=== PATIENT | female | born 1960 | race Caucasian/White ===

== ENCOUNTER → 2020-02-25 15:41 | Outpatient (BNVA) | payer OTHER, SELFPAY | PROVIDERS: PCP Internal Medicine; Visit Provider Surgery Vascular Surgery | DX: Z76.89 Persons encountering health services in other specified circumstances (principal) ==

== ENCOUNTER 2020-03-21 06:04 | Day surgery (SDC) | payer OTHER, SELFPAY ==
[2020-03-14 21:00] VITALS: BMI 27.3
--- NOTE | 2020-03-18 11:31 | P.CONAN_ITS ---
Documented by User: Yolanda Beltran 03/18/20 11:33 HPI - Anesthesia Eval Consult details Narrative: 60yo F for Phlebectomy, micro PMFSH Past Medical History Medical History Arthritis Bladder cancer Depression Hypercholesteremia Second hand smoke exposure Urinary bladder incontinence Family History Family History Father Pancreatic cancer HTN (hypertension) Mother HTN (hypertension) Liver cancer Family/Other No problems noted. Brother HTN (hypertension) Sister HTN (hypertension) Son No problems noted. Daughter No problems noted. Surgical History Surgical History H/O local excision of skin lesion History of transurethral resection of ureterocele Social History Social History Smoking Status: Former smoker Use of substances other than those prescribed or required for medical reasons: No Advance Directives: Yes Advance Directives Information Provided: Yes Advance Directives on File: No Advance Directives Date on File: 07/09/19 Meds Allergies Allergy/AdvReac Type Severity Reaction Status Date / Time No Known Allergies Allergy Verified 03/14/20 21:05 [No Known Allergies*] Home Medications Medication Instructions Recorded Confirmed Type atorvastatin 20 mg tablet 20 mg PO DAILY 02/25/20 03/21/20 History citalopram 40 mg tablet 40 mg PO DAILY 02/25/20 03/21/20 History Fish Oil 1 caplet PO DAILY 03/14/20 03/14/20 History multivitamin 1 tab PO DAILY 03/14/20 03/14/20 History Exam Exam Date and Time: March 18, 2020 1131 Height,Weight and Vital Signs: Height 5 ft 8 in Weight 81.647 kg Pertinent Lab Results Pertinent Lab Results: Laboratory Tests 12/07/19 12/07/19 11:48 11:48 WBC 6.1 Hgb 14.4 Hct 42.7 Plt Count 270 Sodium 139 Potassium 4.3 Chloride 105 BUN 12 Creatinine 0.87 Assessment and Plan Assessment Anesthesia Assessment: Chart Reviewed Documented by User: Ceferino Michaels 03/21/20 07:37 [facility] Past Medical History Medical History Arthritis Bladder cancer Depression Hypercholesteremia Second hand smoke exposure Urinary bladder incontinence Family History Family History Father Pancreatic cancer HTN (hypertension) Mother HTN (hypertension) Liver cancer Family/Other No problems noted. Brother HTN (hypertension) Sister HTN (hypertension) Son No problems noted. Daughter No problems noted. Surgical History Surgical History H/O local excision of skin lesion History of transurethral resection of ureterocele Social History Social History Smoking Status: Former smoker Use of substances other than those prescribed or required for medical reasons: No Advance Directives: Yes Advance Directives Information Provided: Yes Advance Directives on File: No Advance Directives Date on File: 07/09/19 Meds Allergies Allergy/AdvReac Type Severity Reaction Status Date / Time No Known Allergies Allergy Verified 03/14/20 21:05 [No Known Allergies*] Home Medications Medication Instructions Recorded Confirmed Type atorvastatin 20 mg tablet 20 mg PO DAILY 02/25/20 03/21/20 History citalopram 40 mg tablet 40 mg PO DAILY 02/25/20 03/21/20 History Fish Oil 1 caplet PO DAILY 03/14/20 03/14/20 History multivitamin 1 tab PO DAILY 03/14/20 03/14/20 History Exam Airway Mallampati Class: II TM Dist: >3cm Neck ROM: Full Loose/Missing/Broken Teeth: Yes, Upper and Lower (Multiple missing, poor denttiin) Heart: [id number] Lungs: cta b/l Assessment and Plan Assessment Anesthesia Assessment: Anesthesia Plan Discussed, PAT Visit and Chart Reviewed Final Anesthetic Review NPO: Yes ASA Class: III Final Preanesthetic Review: No Changes in Pt Med Stat, Meds/Allgs Chart Reviewed, Consent Obtained/Reviewed and Anes Risks/Benef Reviewed Patient Risk: Low Procedure Risk: Low Assessment/Block/Sedation in SS: Assess/Block/Sedation-SS Anesthetic Plan Anesthetic Plan: GA Disposition: Standard PACU
[2020-03-21 06:17] VITALS: BP 146/85; PULSE 71; RESP 18; TEMP 36.9; O2SAT 95
[2020-03-21] MEDS: Lactated Ringers 1,000 ML 100 ML IVCONT (06:34)
[2020-03-21] MEDS: ceFAZolin Sodium/Dextrose,Iso 2 GM/50 ML PIGGYBACK IV (06:35)
--- NOTE | 2020-03-21 07:42 | MHC.SHP ---
Pre-Procedural Eval Section B Chief Complaint: Varicose veins Allergies: Allergies Allergy/AdvReac Type Severity Reaction Status Date / Time No Known Allergies Allergy Verified 03/14/20 21:05 [No Known Allergies*] Plan Patient has been examined and remains a candidate for the planned procedure
[2020-03-21 08:57] VITALS: BP 178/97; PULSE 87; RESP 14; TEMP 36.2; O2SAT 96
[2020-03-21 09:02] VITALS: BP 159/101; PULSE 77; RESP 16; O2SAT 100
[2020-03-21 09:07] VITALS: BP 162/99; PULSE 69; RESP 18; O2SAT 97
[2020-03-21 09:12] VITALS: BP 152/98; PULSE 71; RESP 18; O2SAT 97
[2020-03-21] MEDS: oxyCODONE HCl Immed Release 5 MG TABLET PO (09:21)
[2020-03-21 09:27] VITALS: BP 146/98; PULSE 70; RESP 18; O2SAT 97
--- NOTE | 2020-03-21 09:36 | HO.POSTANES ---
Post Anesthesia Evaluation Post Anesthesia Evaluation Vital Signs: Vital Signs Temp Pulse Resp BP Pulse Ox 03/21/20 09:27 70 18 146/98 H 97 03/21/20 09:12 71 18 152/98 H 97 03/21/20 09:07 69 18 162/99 H 97 03/21/20 09:02 77 16 159/101 H 100 03/21/20 08:57 97.2 F 87 14 178/97 H 96 03/21/20 06:17 98.4 F 71 18 146/85 H 95 Anesthesia: General Mental Status: Awake Pain Control: Satisfactory Nausea/Vomiting: None Hydration: Adequate Anesthesia-Related Issues: No Anes. Related Issues
--- NOTE | 2020-03-21 11:53 | OP_ITS ---
SURGEON: Jose Guadalupe Nazario MD INDICATIONS: Sweetie is a 60-year-old female with significant right lower extremity varicose veins that have been quite painful for her. She has undergone great saphenous vein ablation. She now presents for operative intervention for phlebectomy of superficial varicosities. Risks, benefits, and complications were discussed in detail with the patient. The patient understood and consented. PREOPERATIVE DIAGNOSIS: Right lower extremity varicose veins with inflammation. POSTOPERATIVE DIAGNOSIS: Right lower extremity varicose veins with inflammation. PROCEDURE PERFORMED: ESTIMATED BLOOD LOSS: 20 mL. COMPLICATIONS: ANESTHESIA: General. ASSISTANTS: WILLIAN: Julissa. PROCEDURES PERFORMED: 1. Right lower extremity microphlebectomy (21). 2. Ligation of venous cluster. DESCRIPTION OF PROCEDURE: The patient was brought to the operating room, prior to which a time-out was called for patient identification and site verification. Right leg was prepped and draped in standard surgical fashion. Incision was carried out over the premarked varicosities when the patient was upright. This was done in 23 separate locations through these incisions using fine mosquitoes. The varicosities were removed. There was multiple superficial thrombosed varicosities clot was removed as well. Once again, these were done in 23 separate locations. There was a large venous cluster in the medial aspect of the right thigh. The base of which was identified, which appeared to be coming off the great saphenous vein. This was identified at the base, tied off with a 3-0 Polysorb suture and then the residual varicosities were removed once this was ligated. Adequate hemostasis was achieved. Steri-Strips and a sterile dressing were applied. The leg was wrapped from foot to thigh. At the end of the case, sponge and instrument counts were correct. The patient tolerated the procedure well, returned to Recovery with stable vitals. DRAINS: None. MD KYE Thrasher/KEHINDE / [id number]
== END 2020-03-21 10:30 | disposition home or self-care (01) ==
PROVIDERS: Visit Provider Surgery Vascular Surgery
PROC: (CPT 37766; principal; 2020-03-21 07:30)
DX: I83.11 Varicose veins of right lower extremity with inflammation (principal); F32.9 Major depressive disorder, single episode, unspecified; E78.00 Pure hypercholesterolemia, unspecified; R32 Unspecified urinary incontinence; Z85.51 Personal history of malignant neoplasm of bladder; Z79.899 Other long term (current) drug therapy; Z87.891 Personal history of nicotine dependence
CPT/HCPCS: 37766; 37785; 88304; J0690; J1100; J2250; J2405; J3010

== ENCOUNTER 2020-06-03 07:27 | Outpatient (REF) | payer OTHER, SELFPAY ==
--- NOTE | 2020-06-03 07:30 | MM_ITS ---
EXAMINATION: MM SCREENING DIGITAL BREAST TOMOSYNTHESIS, BILATERAL CLINICAL INFORMATION: Screening. Asymptomatic. The lifetime risk of breast cancer based on the Tyrer-Cuzick Model is 5%. COMPARISON: Mammography: 05/27/2019, 05/15/2018 TECHNIQUE: Digital breast tomosynthesis is performed in both the craniocaudal and mediolateral oblique views along with computer-aided detection (CAD). Synthesized 2D images are generated from the tomosynthesis. Additional right MLO view is provided. FINDINGS: There are scattered areas of fibroglandular density (ACR BI-RADS breast composition Category b). There are no significant masses, abnormal calcifications, or other abnormalities. There is a dermal lesion overlying the upper outer right breast on MLO view again noted. The axilla and skin contours are unremarkable. MM/MM tomosynthesis screening BI IMPRESSION: No mammographic evidence of malignancy. ASSESSMENT: BI-RADS 2: Benign RECOMMENDATION: Routine annual mammography screening. This patient's information was entered into a reminder system with a target due date for their next mammogram.
== END 2020-06-03 07:28 | disposition home or self-care (01) ==
LOC: HO.MAMMO 07:27
PROVIDERS: PCP Internal Medicine; Visit Provider Internal Medicine
DX: Z12.31 Encounter for screening mammogram for malignant neoplasm of breast (principal)
CPT/HCPCS: 77063; 77067

== ENCOUNTER → 2020-06-07 15:13 | Outpatient (BNVA) | payer OTHER, SELFPAY | PROVIDERS: PCP Internal Medicine; Visit Provider Urology | DX: N39.41 Urge incontinence (principal); C67.9 Malignant neoplasm of bladder, unspecified | CPT/HCPCS: 52000; 81002 ==

== ENCOUNTER 2020-06-11 10:13 | Outpatient (REF) | payer OTHER, SELFPAY ==
[2020-06-11 11:09] LABS: Hematocrit 44.9 % (37-47); Mean Corpuscular HGB Conc 33.4 g/dl (31.0-35.0); Mean Corpuscular Hemoglobin 31.3 pg (27.0-33.0); Mean Corpuscular Volume 93.5 fL (80-98); Mean Platelet Volume 10.6 fL (9.4-12.3); Platelet Count 283 X10*3/uL (160-400); Red Cell Distribution Width 11.9 % (11.0-16.0); White Blood Count 5.2 X10*3/uL (4.8-10.8)
[2020-06-11 11:38] LABS: Alanine Aminotransferase 19 U/L (0-31); Anion Gap 12 (12-20); Aspartate Amino Transferase 19 U/L (5-31); Blood Urea Nitrogen 11 mg/dL (9-16); Calcium 9.2 mg/dL (8.4-10.2); Carbon Dioxide 28 mmol/L (22-29); Chloride 106 mmol/L (96-108); Cholesterol 158 mg/dL; Estimated Glomerular Filt Rate > 60; Glucose Fasting 94 mg/dL (60-99); HDL Cholesterol 47 mg/dL; LDL Cholesterol Calculated 90 mg/dl; Potassium 4.4 mmol/l (3.3-5.1); Sodium 142 mmol/L (135-145); Triglycerides 105 mg/dL
[2020-06-11 12:01] LABS: Vitamin D 25-OH Total 33.4 ng/mL (>30)
== END 2020-06-11 10:14 | disposition home or self-care (01) ==
LOC: HO.LAB 10:13
PROVIDERS: PCP Internal Medicine; Visit Provider Internal Medicine
DX: E78.2 Mixed hyperlipidemia (principal); R73.01 Impaired fasting glucose; Z78.0 Asymptomatic menopausal state
CPT/HCPCS: 36415; 80048; 80061; 82306; 84450; 84460; 85027

== ENCOUNTER 2020-06-20 07:26 | Outpatient (REF) | payer OTHER, SELFPAY ==
--- NOTE | 2020-06-20 07:28 | MR_ITS ---
EXAMINATION: MR LUMBAR SPINE WITHOUT CONTRAST CLINICAL INFORMATION: Radiculopathy, lumbar region. COMPARISON: None TECHNIQUE: MRI of the lumbar spine was obtained using routine sequences without contrast. FINDINGS: The lumbar vertebral bodies maintain normal heights. There is grade 1 anterolisthesis of L4 on L5 measuring up to 5 mm. There is mild retrolisthesis of L2 on L3 and mild anterolisthesis of L5 on S1. Mild disc height loss is seen at L1-L2. Significant marrow edema is seen within the left L4 and bilateral L5 pedicles compatible with stress response. Significant periarticular edema is seen about the L4-L5 and L5-S1 facets. Synovial facet cysts are seen arising from the left L4-L5 facet joint which approximates but does not definitively contact the exiting left L4 nerve root with additional posteriorly directed synovial facet cysts seen bilaterally at L5-S1. The distal spinal cord appears normal. The conus medullaris terminates normally at the T12 level. Bilateral T2 hyperintense renal cysts are noted. The extraspinal soft tissues are otherwise within normal limits. SPINAL LEVELS: T12-L1: No posterior disc abnormality. No spinal canal or neural foraminal stenosis. L1-L2: Disc bulging. No spinal canal or neural foraminal stenosis. L2-L3: Disc bulging asymmetric to the left with left-sided foraminal protrusion resulting in posterior displacement of the traversing left L3 nerve root and narrowing of the left neural foramina without foraminal nerve root compression. Mild spinal canal stenosis. L3-L4: Disc bulging with mild to moderate facet arthropathy. Mild flattening of the ventral thecal sac. Shallow left foraminal protrusion abuts the exiting left L3 nerve root. L4-L5: Grade 1 anterolisthesis with disc bulging and posterior uncovering of the disc. In combination with ligamentum flavum infolding and severe facet arthropathy there is severe spinal canal stenosis with thecal sac compression and near complete effacement of the spinal canal. Moderate right and mild to moderate left neural foraminal stenosis with mass effect on the exiting right L4 nerve root. L5-S1: Mild anterolisthesis. Moderate facet arthropathy. No spinal canal stenosis. Left subarticular extrusion results in compression of the traversing left S1 nerve root. Mild to moderate left neural foraminal stenosis. MR/MR lumbar spine wo con IMPRESSION: Multifactorial degenerative changes including grade 1 anterolisthesis seen at L4-L5 resulting in severe spinal canal stenosis with thecal sac compression and near complete effacement of the spinal canal. Mass effect on the exiting right L4 nerve root. Marrow edema compatible with stress response is seen within the left L4 and bilateral L5 pedicles in addition to periarticular edema. At L5-S1 there is left subarticular extrusion causing compression of the traversing left S1 nerve root. Mild to moderate left neural foraminal stenosis. At L3-L4 there is shallow left foraminal protrusion which abuts the exiting left L3 nerve root.
== END 2020-06-20 07:27 | disposition home or self-care (01) ==
LOC: HO.MRI 07:26
PROVIDERS: Visit Provider Internal Medicine
DX: M54.16 Radiculopathy, lumbar region (principal); Z85.51 Personal history of malignant neoplasm of bladder
CPT/HCPCS: 72148

== ENCOUNTER → 2020-07-22 14:59 | Outpatient (BNVA) | payer OTHER, SELFPAY | PROVIDERS: PCP Internal Medicine; Visit Provider Urology | DX: Z13.9 Encounter for screening, unspecified (principal); N39.41 Urge incontinence | CPT/HCPCS: 52287; 81002; J0585 ==

== ENCOUNTER → 2020-10-28 15:16 | Outpatient (BNVA) | payer OTHER, SELFPAY | PROVIDERS: Visit Provider Urology | DX: C67.9 Malignant neoplasm of bladder, unspecified (principal); N90.4 Leukoplakia of vulva | CPT/HCPCS: 52000 ==

== ENCOUNTER 2021-01-27 15:05 | Outpatient (REF) | payer OTHER, SELFPAY ==
[2021-01-27 16:24] LABS: Urine Cytology See Pathology rpt
== END 2021-01-27 15:06 | disposition home or self-care (01) ==
LOC: HO.LAB 15:05
PROVIDERS: PCP Internal Medicine; Visit Provider Urology
DX: C67.9 Malignant neoplasm of bladder, unspecified (principal)
CPT/HCPCS: 52000; 88112

== ENCOUNTER 2021-05-30 07:13 | Outpatient (REF) | payer OTHER, SELFPAY ==
[2021-05-30 08:18] LABS: Alanine Aminotransferase 21 U/L (0-31); Anion Gap 11 (12-20); Aspartate Amino Transferase 17 U/L (5-31); Blood Urea Nitrogen 14 mg/dL (9-16); Calcium 9.5 mg/dL (8.4-10.2); Carbon Dioxide 24 mmol/L (22-29); Chloride 109 mmol/L (96-108); Cholesterol 215 mg/dL; Estimated Glomerular Filt Rate > 60; Glucose Fasting 129 mg/dL (60-99); HDL Cholesterol 46 mg/dL; LDL Cholesterol Calculated 134 mg/dl; Potassium 4.1 mmol/L (3.3-5.1); Sodium 140 mmol/L (135-145); Triglycerides 177 mg/dL
== END 2021-05-30 07:14 | disposition home or self-care (01) ==
LOC: HO.LAB 07:13
PROVIDERS: PCP Internal Medicine; Visit Provider Internal Medicine
DX: E78.00 Pure hypercholesterolemia, unspecified (principal); I10 Essential (primary) hypertension
CPT/HCPCS: 36415; 80048; 80061; 84450; 84460

== ENCOUNTER 2021-07-06 07:16 | Outpatient (REF) | payer OTHER, SELFPAY ==
--- NOTE | ~2021-07-06 | MM_ITS ---
EXAMINATION: MM SCREENING DIGITAL BREAST TOMOSYNTHESIS, BILATERAL CLINICAL INFORMATION: Screening. Asymptomatic. The lifetime risk of breast cancer based on the Tyrer-Cuzick Model is 5%. COMPARISON: Mammography: 06/03/2020, 05/27/2019, 05/15/2018 TECHNIQUE: Digital breast tomosynthesis is performed in both the craniocaudal and mediolateral oblique views along with computer-aided detection (CAD). Synthesized 2D images are generated from the tomosynthesis. FINDINGS: There are scattered areas of fibroglandular density (ACR BI-RADS breast composition Category b). There are no significant masses, abnormal calcifications, or other abnormalities. Parenchymal pattern is similar to prior studies. There is no developing density or architectural abnormality. Again, there are dermal lesions overlying the breasts. The axilla are unremarkable. No significant changes. MM/MM tomosynthesis screening BI IMPRESSION: No mammographic evidence of malignancy. ASSESSMENT: BI-RADS 2: Benign RECOMMENDATION: Routine annual mammography screening. This patient's information was entered into a reminder system with a target due date for their next mammogram.
== END 2021-07-06 07:17 | disposition home or self-care (01) ==
LOC: HO.MAMMO 07:16
PROVIDERS: PCP Internal Medicine; Visit Provider Internal Medicine
DX: Z12.31 Encounter for screening mammogram for malignant neoplasm of breast (principal)
CPT/HCPCS: 77063; 77067

== ENCOUNTER → 2021-07-26 15:04 | Outpatient (BNVA) | payer OTHER, SELFPAY | PROVIDERS: PCP Internal Medicine; Visit Provider Urology | DX: N32.81 Overactive bladder (principal) | CPT/HCPCS: 52287; J0585 ==

== ENCOUNTER → 2021-09-25 11:42 | Outpatient (BNVA) | payer OTHER, SELFPAY | PROVIDERS: PCP Internal Medicine; Visit Provider Surgery Vascular Surgery | DX: I83.12 Varicose veins of left lower extremity with inflammation (principal) ==

== ENCOUNTER 2021-11-08 07:54 | Outpatient (REF) | payer OTHER, SELFPAY ==
--- NOTE | ~2021-11-08 | US_ITS ---
EXAMINATION: US LOWER EXTREMITY VENOUS (REFLUX EXAM), LEFT CLINICAL INDICATION: Left lower extremity varicose veins. COMPARISON: History of prior venous reflux exam on 12/22/2019. TECHNIQUE: Color flow triplex imaging and compression Doppler was performed to evaluate both the deep and the superficial systems of the left lower extremity. To evaluate the superficial system, the examination was performed in the upright position. Color-flow Doppler ultrasound and compression ultrasound were utilized. In addition, maneuvers were utilized to demonstrate reflux. FINDINGS: 1. DEEP VENOUS DOPPLER ULTRASOUND: Common Femoral Vein: Compressible, normal respiratory variation and augmented flow. Femoral Vein: Compressible, normal color flow and augmentation. Popliteal Vein: Compressible, normal augmentation. Deep Reflux: There is no evidence of reflux in the deep system in either the common femoral vein or the popliteal vein. There is no evidence of a Aguila's cyst. 2. SUPERFICIAL VENOUS DOPPLER ULTRASOUND: GREAT SAPHENOUS VEIN: The left great saphenous vein measures 8 mm at the junction and 3 mm at the ankle. There is evidence of reflux involving the left great saphenous vein at the saphenofemoral junction/proximal thigh measuring up to 1.6 seconds. DUPLICATED GREAT SAPHENOUS VEIN: None. SMALL SAPHENOUS VEIN: Proximal: 0.3 cm; No evidence of reflux. Distal: 0.2 cm; No evidence of reflux. VEIN OF GIACOMINI: None imaged. PERFORATORS: Distal thigh and mid calf measuring 4 and 2 mm respectively. No evidence of reflux. VARICOSITIES: Midcalf, proximal thigh, mid thigh and proximal calf measuring between 3 and 4 mm. Varicosities in the mid thigh and proximal calf demonstrate greater than 0.5 seconds of reflux. US/US venous duplex LE LT IMPRESSION: 1. Left great saphenous venous insufficiency beginning at the junction/proximal thigh. 2. Multiple refluxing left lower extremity varicosities. 3. No evidence of left lower extremity DVT or deep venous insufficiency.
== END 2021-11-08 07:55 | disposition home or self-care (01) ==
LOC: HO.US 07:54
PROVIDERS: Visit Provider Surgery Vascular Surgery
DX: I83.12 Varicose veins of left lower extremity with inflammation (principal)
CPT/HCPCS: 93971

== ENCOUNTER → 2021-12-15 09:26 | Outpatient (BNVA) | payer OTHER, SELFPAY | PROVIDERS: PCP Internal Medicine; Visit Provider Surgery Vascular Surgery | DX: I83.11 Varicose veins of right lower extremity with inflammation (principal) | CPT/HCPCS: 36482 ==

== ENCOUNTER 2021-12-18 15:25 | Outpatient (REF) | payer OTHER, SELFPAY ==
--- NOTE | ~2021-12-18 | US_ITS ---
EXAMINATION: US VENOUS ULTRASOUND WITH DOPPLER LOWER EXTREMITY, LEFT CLINICAL INFORMATION: Left leg pain. COMPARISON: None TECHNIQUE: Ultrasound of the deep veins is performed from the hip to the calf with compression sonography and color and pulse Doppler assessment. Spectral analysis with color-flow imaging is performed. FINDINGS: There is normal venous compression and respiratory variation and augmented flow. The visualized common femoral vein, superficial femoral vein, profunda femoral vein, popliteal vein, and the trifurcation region shows no evidence of deep venous thrombosis. Positive partially occlusive superficial thrombus is seen in the visualized proximal greater saphenous vein approximately 1.3 cm proximal to the saphenofemoral junction. No left popliteal cyst. The subcutaneous soft tissues are unremarkable. If the patient's symptoms persist, followup ultrasound in 5 days 7 days might be of value to exclude proximal propagation from a non-visualized calf vein. US/US venous duplex LE IMPRESSION: 1. No evidence for deep venous thrombosis in the visualized veins of the left lower extremity. 2. Partially occlusive superficial thrombus in the visualized left greater saphenous vein seen approximately 1.3 cm distal to the left saphenofemoral junction.
== END 2021-12-18 15:26 | disposition home or self-care (01) ==
LOC: HO.US 15:25
PROVIDERS: Visit Provider Surgery Vascular Surgery
DX: M79.605 Pain in left leg (principal); M79.604 Pain in right leg
CPT/HCPCS: 93971

== ENCOUNTER 2022-01-26 15:09 | Outpatient (REF) | payer OTHER, SELFPAY ==
[2022-01-26 16:36] LABS: Urine Cytology See Pathology rpt
== END 2022-01-26 15:10 | disposition home or self-care (01) ==
LOC: HO.LAB 15:09
PROVIDERS: Visit Provider Urology
DX: N32.81 Overactive bladder (principal); C67.9 Malignant neoplasm of bladder, unspecified; N90.4 Leukoplakia of vulva
CPT/HCPCS: 52000; 88112

== ENCOUNTER 2022-03-19 10:39 | Outpatient (REF) | payer OTHER, SELFPAY ==
[2022-03-19 12:29] LABS: Estimated Average Glucose 134 mg/dL; Hemoglobin A1c % 6.3 %
[2022-03-19 12:34] LABS: Alanine Aminotransferase 21 U/L (0-31); Aspartate Amino Transferase 20 U/L (5-31); Cholesterol 170 mg/dL; Glucose Fasting 97 mg/dL (60-99); HDL Cholesterol 50 mg/dL; LDL Cholesterol Calculated 100 mg/dl; Triglycerides 102 mg/dL
[2022-03-19 12:57] LABS: Vitamin D 25-OH Total 16.4 ng/mL (>30)
== END 2022-03-19 10:40 | disposition home or self-care (01) ==
LOC: HO.LAB 10:39
PROVIDERS: PCP Internal Medicine; Visit Provider Internal Medicine
DX: E78.00 Pure hypercholesterolemia, unspecified (principal); F33.42 Major depressive disorder, recurrent, in full remission; R73.01 Impaired fasting glucose
CPT/HCPCS: 36415; 80061; 82306; 82947; 83036; 84450; 84460

== ENCOUNTER 2022-07-17 07:28 | Outpatient (REF) | payer OTHER, SELFPAY ==
--- NOTE | ~2022-07-17 | MM_ITS ---
EXAMINATION: BONE DENSITOMETRY CLINICAL INDICATION: Unspecified menopausal and perimenopausal disorder. COMPARISON: Previous BD dated 05/15/2018 and baseline BD dated 08/10/2008. TECHNIQUE: Using a VibeWrite DXA System (software version: 13.1) manufactured by [email or web address], dual-energy x-ray absorptiometry was performed of the lumbar spine and left hip. The images are of good technical quality. Summary results are attached. FINDINGS: AP SPINE L1-L3 (excluding L4): The data of L1-L4 has been changed to exclude the L4 vertebral body, because degenerative changes at this level may cause overestimation of lumbar spine density. Current: BMD 1.037 g/cm2, Z-score -0.1, T-score -1.1, osteopenia, 4.7% decrease from previous, 7.5% decrease from baseline (<5% change is not significant). Prior: BMD 1.088 g/cm2. Baseline: BMD 1.121 g/cm2. LEFT FEMUR, NECK: Current: BMD 0.905 g/cm2, Z-score 0.1, T-score -1.0, normal. Prior: BMD 0.938 g/cm2. Baseline: BMD 1.062 g/cm2. LEFT FEMUR, TOTAL: Current: BMD 0.809 g/cm2, Z-score -0.8, T-score -1.6, osteopenia, 11.2% decrease from previous, 20.4% decrease from baseline (<5% change is not significant). Prior: BMD 0.911 g/cm2. Baseline: BMD 1.016 g/cm2. IDENTIFIED RISK FACTORS: Menopause. HISTORY OF FRACTURE: None listed. MEDICATIONS: Multivitamin. Vitamin D. MM/XR DEXA axial skeleton IMPRESSION: 1. DIAGNOSIS: Osteopenia based on the lowest T-score value of -1.6 in the total femur applying World Health Organization criteria. 2. 10-YEAR FRACTURE RISK PREDICTION, FRAX: Major osteoporotic fracture (clinical spine, forearm, hip or shoulder) 7.7%. Hip fracture 0.5%. 3. Treatment Recommendations: NOF guidelines recommend consideration for treatment in postmenopausal women and men age 50 and older presenting with the following: -A hip or vertebral (clinical or morphometric) fracture. -T-score less than or equal to -2.5 at the femoral neck or spine after appropriate evaluation to exclude secondary causes. -Low bone mass at the hip or spine and a 10-year fracture probability by FRAX of greater than or equal to 3% for hip fracture or greater than or equal to 20% for major osteoporotic fracture based on the [place] adapted WHO algorithm. 4. Other Recommendations: All treatment decisions require clinical judgment and consideration of individual patient factors, including patient preferences, comorbidities, previous drug use, risk factors not captured in the FRAX model (e.g. frailty, falls, vitamin D deficiency, increased bone turnover, interval significant decline in bone density) and possible under or overestimation of fracture risk by FRAX. Additional medical evaluation for secondary cause of low bone mineral density may be appropriate. FUTURE SCAN RECOMMENDATION: People with diagnosed cases of osteoporosis or at high risk for fracture should have regular bone mineral density tests. For patients eligible for Medicare, routine testing is allowed once every 2 years. The testing frequency can be increased to one year for patients who have rapidly progressing disease, those who are receiving or discontinuing medical therapy to restore bone mass, or have additional risk factors.
--- NOTE | ~2022-07-17 | MM_ITS ---
EXAMINATION: MM SCREENING DIGITAL BREAST TOMOSYNTHESIS, BILATERAL CLINICAL INFORMATION: Screening. Asymptomatic. The lifetime risk of breast cancer based on the Tyrer-Cuzick Model is 4%. COMPARISON: Mammography: July 06, 2021 and studies dating back to March 28, 2016 TECHNIQUE: Digital breast tomosynthesis is performed in both the craniocaudal and mediolateral oblique views along with computer-aided detection (CAD). Synthesized 2D images are generated from the tomosynthesis. FINDINGS: There are scattered areas of fibroglandular density (ACR BI-RADS breast composition Category b). There are no significant masses, abnormal calcifications, or other abnormalities. MM/MM tomosynthesis screening BI IMPRESSION: BI-RADS 1 ASSESSMENT: BI-RADS 1: Negative RECOMMENDATION: Routine annual mammography screening. This patient's information was entered into a reminder system with a target due date for their next mammogram.
== END 2022-07-17 07:29 | disposition home or self-care (01) ==
LOC: HO.MAMMO 07:28
PROVIDERS: PCP Internal Medicine; Visit Provider Internal Medicine
DX: Z12.31 Encounter for screening mammogram for malignant neoplasm of breast (principal); Z13.820 Encounter for screening for osteoporosis; N95.9 Unspecified menopausal and perimenopausal disorder; Z78.0 Asymptomatic menopausal state
CPT/HCPCS: 77063; 77067; 77080

== ENCOUNTER → 2022-07-27 07:39 | Outpatient (BNVA) | payer OTHER, SELFPAY | PROVIDERS: PCP Internal Medicine; Visit Provider Surgery Vascular Surgery | DX: R23.2 Flushing (principal); I83.12 Varicose veins of left lower extremity with inflammation | CPT/HCPCS: 37766; 52000 ==

== ENCOUNTER → 2022-08-13 08:30 | Outpatient (BNVA) | payer OTHER, SELFPAY | PROVIDERS: PCP Internal Medicine; Visit Provider Obstetrics & Gynecology | DX: Z13.89 Encounter for screening for other disorder (principal) ==

== ENCOUNTER → 2022-08-14 15:00 | Outpatient (BNVA) | payer OTHER, SELFPAY | PROVIDERS: PCP Internal Medicine; Visit Provider Surgery Vascular Surgery | DX: Z13.89 Encounter for screening for other disorder (principal) ==

== ENCOUNTER 2022-10-17 14:01 | Outpatient (REF) | payer OTHER, SELFPAY ==
[2022-10-17 17:12] LABS: Urine Cytology See Pathology rpt
== END 2022-10-17 14:02 | disposition home or self-care (01) ==
LOC: HO.LAB 14:01
PROVIDERS: PCP Internal Medicine; Visit Provider Urology
DX: R23.2 Flushing (principal); N32.81 Overactive bladder; N90.4 Leukoplakia of vulva; Z85.51 Personal history of malignant neoplasm of bladder
CPT/HCPCS: 52000; 52287; 88112; J0585

== ENCOUNTER → 2022-10-29 14:22 | Outpatient (BNVA) | payer OTHER, SELFPAY | PROVIDERS: PCP Internal Medicine; Visit Provider Obstetrics & Gynecology ==

== ENCOUNTER → 2022-10-31 14:58 | Outpatient (BNVA) | payer OTHER, SELFPAY | PROVIDERS: PCP Internal Medicine; Visit Provider Urology ==

== ENCOUNTER 2022-12-06 14:56 | Outpatient (AMB) | payer OTHER, SELFPAY ==
--- NOTE | 2022-12-06 14:56 | A.OFFVIS_ITS ---
Intake Vital Signs 12/06/22 15:02 Height 5 ft 8 in Weight 180 lb 12.465 oz BMI 27.5 BP 124/72 Intake Visit Reasons: Vulvar 3x Hoop Coiler Required: No Information Interpreted: non-clinical & clinical Service Station Console Operator: Service Station Console Operator Present (Liliane Matias ADE) Accompanied by: Self / Same As Patient Allergies No Known Allergies [No Known Allergies*] Allergy (Verified 12/06/22 15:03) Post menopausal: Yes PFSH Medical History Arthritis Depression, major, in remission Hx of bladder cancer Hypercholesteremia Impaired fasting glucose Lichen sclerosus of female genitalia Lumbar back pain with radiculopathy affecting lower extremity Lumbar disc herniation with radiculopathy Lumbar nerve root impingement Menopause Second hand smoke exposure 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 Brother HTN (hypertension) Sister HTN (hypertension) Son Mental health disorder Daughter No problems noted. Social History Housing: House Patient Tobacco Use Status: Never used Tobacco e-Cigarette/Vaping Use: Never Used Advance Directives Date on File: 07/09/19 Current occupational status: employed Cognitive needs: No Hearing needs: No Vision needs: Yes Female Reproductive History Menstrual Age of Menarche: 10 Physical Exam Vital Signs: Last Vital Signs BP 124/72 12/06/22 15:02 BMI result Body Mass Index 27.5 Office Procedures [facility] Biopsy Before the procedure was started d/w patient the procedure, alternatives ( do nothing, medical rx), & all the risks associated with the procedure ( bleeding , infection, vulvar scarring, painful intercourse, injury to vessels, possible need for transfusion with all its risks) then patient signed the consent. Preop dx: Posterior fourchette leukoplakia/ulcer Op: Posterior fourchette leukoplakia/ulcer biopsy Post op: Same Anesthesia: Lidocaine 1% 3cc used Procedure: Using betadine the area was scrubbed and draped in the usual manner. 3 cc of lidocaine was used for anesthesia at the left vulvar lesion area ; using punch biopsy forceps and pickup the Posterior fourchette leukoplakia/ulcer was biopsied. Pressure was used for hemostasis. The patient tolerated the procedure well. Discharge Instructions: The patient was instructed to schedule an appointment in 2 weeks for follow-up and to call if temp>100.4, area of the biopsy redness or pain, nausea/vomiting. This note was generated with a voice recognition program. Some errors may have been overlooked during the review of this note. Sometimes these errors may affect the content or meaning of a given sentence. [id number] of Vulva/Perineum Procedure code (CPT) selection complete Assessment & Plan Assessment & Plan Orders: Orders AMB [facility] Biopsy Today N90.4 - Leukoplakia of vulva Coding Level of Care Code Procedure Only Diagnoses CPT Codes [facility] Biopsy - CPT: 26392-Keplfd of Vulva/Perineum ([id number])
[2022-12-06 15:02] VITALS: BP 124/72; BMI 27.5
== END 2022-12-06 15:21 | disposition home or self-care (01) ==
LOC: HO.HWS 14:56
PROVIDERS: PCP Internal Medicine; Visit Provider Obstetrics & Gynecology
DX: N90.4 Leukoplakia of vulva (principal)
CPT/HCPCS: 56605

== ENCOUNTER 2022-12-06 14:56 | Outpatient (REF) | payer OTHER, SELFPAY | END 2022-12-06 14:57 | disposition home or self-care (01) | LOC: HO.LNP 14:56 | PROVIDERS: PCP Internal Medicine; Visit Provider Obstetrics & Gynecology | DX: N90.4 Leukoplakia of vulva (principal) | CPT/HCPCS: 56605; 88305; 88312 ==

== ENCOUNTER 2022-12-27 14:28 | Outpatient (AMB) | payer OTHER, SELFPAY ==
[2022-12-27 14:33] VITALS: BP 120/76; BMI 27.5
--- NOTE | 2022-12-27 14:33 | A.OFFVIS_ITS ---
Intake Vital Signs 12/27/22 14:33 Height 5 ft 8 in Weight 181 lb BMI 27.5 BP 120/76 Intake Visit Reasons: Biopsy results follow up Cylinder Devalver Required: No Allergies No Known Allergies [No Known Allergies*] Allergy (Verified 12/27/22 14:34) Is last menstrual period known: No Post menopausal: Yes HPI HPI Comments History of Present Illness Details Presenting for follow-up post vulvar biopsy doing well with no complaints. The pathology showed lichen sclerosis. 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 Brother HTN (hypertension) Sister HTN (hypertension) Son Mental health disorder Daughter No problems noted. Social History Housing: House Patient Tobacco Use Status: Never used Tobacco e-Cigarette/Vaping Use: Never Used Advance Directives Date on File: 07/09/19 Current occupational status: employed Cognitive needs: No Hearing needs: No Vision needs: Yes Female Reproductive History Menstrual Age of Menarche: 10 control method: none Date of Mammogram: 07/17/22 Date of last Bone Density Screenin07/17/22 Review of Systems Const All systems reviewed & are unremarkable except as noted in HPI and below Reports as per HPI and Reports no additional complaints GI Reports no additional complaints Reports no additional complaints Physical Exam Vital Signs: Last Vital Signs BP 120/76 12/27/22 14:33 BMI result Body Mass Index 27.5 Assessment & Plan Assessment & Plan (1) Lichen sclerosus of female genitalia: Code(s): N90.4 - Leukoplakia of vulva Plan: Discussed with the patient the pathology results showing lichen sclerosis. Explained to the patient that Lichen sclerosus refers to a benign, chronic, progressive dermatologic condition characterized by marked inflammation, epithelial thinning accompanied by pruritus and pain. In addition, discussed with the patient that there is a small increased risk of squamous cell cancer of the vulva in patients with lichen sclerosus. Adequate treatment of the disease seems to be associated with a reduced risk of development of neoplasia. Instructed the patient to schedule an appointment in a year to examine the affected area, with possible biopsy of suspicious lesions, in addition explained to the patient that she should look at the skin of the affected area and touch with fingertips monthly to search for thickened lumps or sores that do not heal & to report such findings for inspection & possible biopsy to rule out vulvar cancer Instructions given the patient to apply Clobetasol propionate 0.05% ointment to be applied daily at night for 6 weeks, followed by maintenance therapy two to three times per week and to schedule a reinspection appointment in a year. . Coding Level of Care Code Est Pt Level 3 (95256) Diagnoses Lichen sclerosus of female genitalia N90.4
== END 2022-12-27 14:40 | disposition home or self-care (01) ==
LOC: HO.HWS 14:28
PROVIDERS: PCP Internal Medicine; Visit Provider Obstetrics & Gynecology
DX: N90.4 Leukoplakia of vulva (principal)
CPT/HCPCS: 99213

== ENCOUNTER → 2022-12-27 14:28 | Outpatient (BNVA) | payer OTHER, SELFPAY | PROVIDERS: PCP Internal Medicine; Visit Provider Obstetrics & Gynecology ==

== ENCOUNTER 2023-01-29 14:51 | Outpatient (AMB) | payer OTHER, SELFPAY ==
--- NOTE | 2023-01-29 14:59 | MHC.OFFVIS ---
Intake Intake Visit Reasons: 6m/cysto Intake Note: Patient is present for Cystoscopy Urology Med: Estradiol Antibiotic Allergy:None Blood Thinner: None Pharmacy: [facility] Disposable Cystoscope used during Procedure LOT#:[id number] EXP: 09/30/2024 Allergies No Known Allergies [No Known Allergies*] Allergy (Verified 01/29/23 15:04) HPI HPI Comments History of Present Illness Details Sweetie is a pleasant female. She is seen for the following urologic conditions - bladder cancer - lichen sclerosis - hot flashes Bladder clear Vaginal introitus responding well to topical intermittent steroid therapy for lichen sclerosis. Addition of estradiol on alternate days has been helpful Persistent good result from Botox Bladder cancer June 2018 low-grade recurrence Longstanding Last TURBT June 2018 with low-grade bladder cancer Underwent BCG therapy Cystoscopy 02/07 NAD, 08/08 NAD, 08/09 NAD, 02/09 NAD Cytology NAD Continue with bladder check every 6 months Urgency frequency Non responsive to oral medications Botox performed to bladder in August 2020, 08/08, 10/09 Good effect with Botox Lichen sclerosis Vaginal introitus Good response to steroid therapy and estradiol cream on alternating days Continue with [id number] [facility] Medical History Arthritis Depression, major, in remission Hx of bladder cancer Hypercholesteremia Impaired fasting glucose Lichen sclerosus of female genitalia Lumbar back pain with radiculopathy affecting lower extremity Lumbar disc herniation with radiculopathy Lumbar nerve root impingement Menopause Second hand smoke exposure 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 Brother HTN (hypertension) Sister HTN (hypertension) Son Mental health disorder Daughter No problems noted. Social History Housing: House Patient Tobacco Use Status: Never used Tobacco e-Cigarette/Vaping Use: Never Used Advance Directives Date on File: 07/09/19 Current occupational status: employed Cognitive needs: No Hearing needs: No Vision needs: Yes Female Reproductive History Menstrual Age of Menarche: 10 Review of Systems Const Denies chills and Denies fever(s) Card Reports no additional complaints and Denies syncope Resp Denies cough GI Denies abdominal pain and Denies heartburn Reports as per HPI and Denies change in libido Neuro Denies syncope Psych Denies change in libido Endo Denies change in libido Physical Exam Const General: cooperative, healthy appearing, comfortable and no acute distress Orientation/consciousness: patient oriented x3 HEENT Face and sinus: Yes normal facial exam Mouth: moist mucous membranes Neck Neck: Yes normal visual inspection, Yes full ROM and Yes trachea midline Chest Chest palpation & inspection: normal inspection of the chest Resp Effort & Inspection: normal respiratory effort, able to speak in complete sentences and no respiratory distress GI Inspection: Yes normal to inspection Back/Spine/Pelvis Cervical Spine: normal cervical lordosis Thoracic/Lumbar Spine: thoracic and lumbar spine normal to inspection Skin General skin exam: no rashes or lesions noted Neuro General: patient oriented x3, gait normal, tone normal and moves all extremities Extrem General: Yes normal to inspection and Yes capillary refill normal Office Procedures Cystoscopy Consent Discussed risk and benefit or proposed procedure with the patient. Information consent for procedure given to the patient. Discussed technical aspects, risks, benefits and alternatives in full. Addressed all of the patient's questions and concerns regarding the procedure. The patient demonstrated knowledge and understanding. They wish to proceed with this procedure. Preparation The patient was prepped in the usual manner. A division sergeant was present and in the room. Genitalia was prepped with betadine solution in a sterile manner. Lidocaine Jelly 2% was placed into the urethra and 16Fr flexible Olympus cystoscope was inserted into the meatus after adequate lubrication. Procedure Meatus normal position, atrophic Urethra normal Bladder examination with retroflexion of cystoscope Bladder Orifices normal shape and position Trigone normal Bladder Capacity medium Trabeculations mild Cellule Formation - Diverticulum Formation - Mucosal Erythema -- Bladder Tumor - [id number] DISPOSABLE SCOPE URO-G FLEXIBLE SCOPE Procedure code (CPT) selection complete Office Meds lidocaine HCl 2 % mucosal jelly in applicator Performing Provider: Silverio Richards MD [facility] Administered by: Gerda Cash RN on 01/29/23 15:24 Dose Route Admin Location Dispensed Lot Number Expiration Date ND Program Control Analyst 10 mL intra-urethral 10 mL nitrofurantoin monohydrate/macrocrystals 100 mg capsule Performing Provider: Silverio Richards MD [facility] Administered by: Gerda Cash RN on 01/29/23 15:24 Dose Route Admin Location Dispensed Lot Number Expiration Date NDC Program Control Analyst 100 mg PO 1 cap naproxen 500 mg tablet Performing Provider: Silverio Richards MD [facility] Administered by: Gerda Cash RN on 01/29/23 15:24 Dose Route Admin Location Dispensed Lot Number Expiration Date NDC Program Control Analyst 500 mg PO 1 tab Results AMB Urinalysis, Automated UA Leukoctes 0 Nora/uL Last Edit by Karime Alcantar [facility] on 01/29/23 15:17 UA Nitrite Negative Last Edit by Karime Alcantar [facility] on 01/29/23 15:17 UA Urobilinogen 0.2 mg/dL Last Edit by Karime Alcantar [facility] on 01/29/23 15:17 UA Protein 15 mg/dL Last Edit by Karime Alcantar [facility] on 01/29/23 15:17 UA pH 6.0 Last Edit by Karime Alcantar [facility] on 01/29/23 15:17 UA Blood 25 Papo/uL Last Edit by Karime Alcantar [facility] on 01/29/23 15:17 UA Specific [place] 1.015 Last Edit by Karime Alcantar [facility] on 01/29/23 15:17 UA Ketone Negative Last Edit by Karime Alcantar [facility] on 01/29/23 15:17 UA Bilirubin 0 mg/dL Last Edit by Karime Alcantar [facility] on 01/29/23 15:17 UA Glucose 0 mg/dL Last Edit by Karime Alcantar [facility] on 01/29/23 15:17 Results Reviewed Results Reviewed: Laboratory Last Values Urine pH (Auto) 6.0 01/29/23 15:04 Specific [place] (Auto) 1.015 01/29/23 15:04 Urine Protein (Auto) 15 mg/dL 01/29/23 15:04 Glucose (UA)(Auto) 0 mg/dL 01/29/23 15:04 Urine Ketones (Auto) Negative 01/29/23 15:04 Urine Blood (Auto) 25 Papo/uL 01/29/23 15:04 Urine Nitrite (Auto) Negative 01/29/23 15:04 Urine Bilirubin (Auto) 0 mg/dL 01/29/23 15:04 Urine Urobilinogen (Auto) 0.2 mg/dL 01/29/23 15:04 Leukocyte Esterase (Auto) 0 Nora/uL 01/29/23 15:04 Assessment & Plan Assessment & Plan (1) Vulvar leukoplakia: Comment: Procedure fourchette leukoplakia Code(s): N90.4 - Leukoplakia of vulva (2) Overactive bladder: Comment: Botox 08/08 Code(s): N32.81 - Overactive bladder (3) Bladder cancer: Code(s): C67.9 - Malignant neoplasm of bladder, unspecified Plan Six month follow-up cystoscopy Orders: Orders AMB Urinalysis Automated Today Z13.9 - Encounter for screening, unspecified AMB Cystoscopy Today C67.9 - Malignant neoplasm of bladder, unspecified Urine Cytology Today C67.9 - Malignant neoplasm of bladder, unspecified Patient Instructions: Imaging studies, laboratory and physical exam results were discussed and reviewed in detail. No major barriers to patient understanding were identified. An opportunity to ask questions regarding the treatment plan was provided. All questions were answered. The patient expressed understanding and agreement with the above treatment plan. The patient is aware they should contact our office by phone for worsening of their current condition or the appearance of new urologic symptoms. Compliance is encouraged with any medications and followup testing that is ordered. It is a privilege to participate in the urologic care of your patient. If you have any questions or concerns regarding treatment for the above conditions, or other urologic issues, please do not hesitate to contact me. The office telephone contact is [phone]. This note is constructed using voice recognition software. While every effort has been made to ensure accuracy case assembler errors may have been included. Yours sincerely, Dr Silverio Richards MD, [facility] - Urology Providers of Expert, Compassionate Care for the Genitourinary System Coding Level of Care Code Est Pt Level 3 (88693) Diagnoses Vulvar leukoplakia N90.4 Overactive bladder N32.81 Bladder cancer C67.9 CPT Codes Cystoscopy - CPT: 51649-Uhsnjoyflr ([id number])
== END 2023-01-29 15:42 | disposition home or self-care (01) ==
PROVIDERS: PCP Internal Medicine; Visit Provider Urology
DX: N90.4 Leukoplakia of vulva (principal); N32.81 Overactive bladder; C67.9 Malignant neoplasm of bladder, unspecified; Z13.9 Encounter for screening, unspecified
CPT/HCPCS: 52000; 99213

== ENCOUNTER 2023-01-29 14:51 | Outpatient (REF) | payer OTHER, SELFPAY ==
[2023-01-29 16:26] LABS: Urine Cytology See Pathology rpt
== END 2023-01-29 14:52 | disposition home or self-care (01) ==
LOC: HO.LAB 14:51
PROVIDERS: Visit Provider Urology
DX: C67.9 Malignant neoplasm of bladder, unspecified (principal); N90.4 Leukoplakia of vulva; N32.81 Overactive bladder
CPT/HCPCS: 52000; 81003; 88112; 99212

== ENCOUNTER 2023-04-12 09:26 | Outpatient (AMB) | payer OTHER, SELFPAY ==
--- NOTE | 2023-04-12 09:38 | AM.OFFWIN_ITS ---
Intake Vital Signs 04/12/23 09:41 Height 5 ft 8 in Weight 181 lb BMI 27.5 BP 132/80 Blood Pressure Location Rt brachial Position Sitting Pulse 81 Pulse Source Pulse Oximeter Temp 97.8 F Temp Source Temporal Artery Scan Pulse Oximetry (%) 96 Intake Visit Reasons: EP LT leg numbness Intake Note: pt is here for c/o left foot numbness Patient Tobacco Use Status: Never used Tobacco Allergies No Known Allergies [No Known Allergies*] Allergy (Verified 04/12/23 09:41) Medication List - Last Reconciled 04/12/23 by Viktoriya Hameed PA-C atorvastatin 20 mg PO DAILY cholecalciferol (vitamin D3) 1,250 mcg PO QWEEK 3 months citalopram 40 mg PO DAILY clobetasol 0.05% 1 appl topical DAILY 30 weeks dexamethasone 4 mg PO BID estradiol 0.01%(0.1mg/gram) pea-sized to urethra 2 times a week; alternate with clobetasol cream 30 days [Fish Oil 1 caplet PO DAILY] [multivitamin 1 tab PO DAILY] progesterone micronized 100 mg PO BEDTIME 30 days Do you need a note to return to daycare/school/sports/work: Yes HPI HPI Comments History of Present Illness Details Patient is a 63yo F who has hx of pinched nerve in back for years. No hx of surgeries to back Specialist told her that her back pain would eventually get worse Presents for numbness of L foot toes and lateral L foot x 2 weeks No associated back pain, or recent falls or trauma She usually would only feel the symptoms at night and this has been ongoing for years But now symptoms are everyday She describes it as pins and needles like when Novocaine wears off She is still able to curl toes and ambulate etc She is on no medicine for it aside from ibuprofen prn PCP is next seen in April She would like to see neurologist; no hx diabetes. No urine or bowel incontinence. 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 Brother HTN (hypertension) Sister HTN (hypertension) Son Mental health disorder Daughter No problems noted. Housing: House Patient Tobacco Use Status: Never used Tobacco e-Cigarette/Vaping Use: Never Used Advance Directives Date on File: 07/09/19 Current occupational status: employed Cognitive needs: No Hearing needs: No Vision needs: Yes Female Reproductive History Menstrual Age of Menarche: 10 Review of Systems Const Denies body aches, Denies chills, Denies fever(s) and Denies frequent falls Card Denies chest pain, Denies leg ulcers, Denies leg edema and Denies dyspnea Resp Denies cough and Denies dyspnea GI Denies abdominal pain, Denies change in bowel habits and Denies diarrhea Musc Reports muscle weakness, Reports numbness, Reports radiating pain into limb and Reports tingling Neuro Denies frequent falls, Denies lack of coordination, Reports numbness, Reports radicular pain (had R sided sciatica recently but resolved.), Reports tingling and Reports paresthesias Physical Exam Vital Signs: Last Vital Signs Temp 97.8 F 04/12/23 09:41 Pulse 81 04/12/23 09:41 BP 132/80 04/12/23 09:41 Pulse Ox 96 04/12/23 09:41 BMI result Body Mass Index 27.5 General: Non-toxic, NAD. Speaking full sentences. Skin: Warm dry throughout. No lower extremities edema or erythema. Bilateral lower extremities show no erythema, FB or deficit to feet or plantar aspects. Respiratory: CTA bilaterally. No wheezes, rales or rhonchi Cardiac: RRR. No murmur. DP pulse 2+ bilaterally. No calf tenderness or pedal edema bilaterally. MSK: No midline spinal tenderness, Full ROM at hips, knees and ankles bilaterally. 5/5 strength with flexion/extension at knees bilaterally. 5/5 strength flexion/extension great toe RLE. 4/5 flexion L great toe. 4/5 extension L great toe. Gait stable without limp, foot drop or abnormality noted. Neurology: A/O x 3. No aphasia or facial droop. Gait without abnormality as stated above. No sensory deficit noted on exam. Psych: Good mood and affect Assessment & Plan Assessment & Plan (1) Lumbar radiculopathy: Code(s): M54.16 - Radiculopathy, lumbar region (2) Paresthesia of left foot: Code(s): R20.2 - Paresthesia of skin Plan: Patient seen and evaluated. She has no midline spinal tenderness, urine or bowel incontinence. She is nontoxic-appearing. Strength is intact bilaterally aside from extension of left great toe. Discussed with patient that symptoms appear L5/S1 lumbar radiculopathy in nature. Discussed that she would benefit from further imaging that needs to be arranged by primary care or specialist. Will give short course of dexamethasone to help with inflammation and hopefully improve symptoms. She has been told to take with food avoid alcohol or NSAIDs. Follow up closely with her primary care provider within the week single emergency department if there is any onset of pain, increased weakness, gait deficit, urine or bowel incontinence etc.. All questions were answered at time of discharge. Medications: New dexamethasone 4 mg PO BID 8 tabs 0RF Coding Level of Care Code Est Pt Level 3 (09449) Diagnoses Lumbar radiculopathy M54.16 Paresthesia of left foot R20.2
[2023-04-12 09:41] VITALS: BP 132/80; PULSE 81; TEMP 36.6; O2SAT 96; BMI 27.5
== END 2023-04-12 10:07 | disposition home or self-care (01) ==
PROVIDERS: PCP Internal Medicine; Visit Provider Physician Assistant
DX: M54.16 Radiculopathy, lumbar region (principal); R20.2 Paresthesia of skin
CPT/HCPCS: 99213

== ENCOUNTER 2023-04-16 13:34 | Outpatient (AMB) | payer OTHER, SELFPAY ==
[2023-04-16 13:45] VITALS: BP 142/98; PULSE 75; O2SAT 98; BMI 28.1
--- NOTE | 2023-04-16 13:45 | MHC.PC.OV ---
Vital Signs 04/16/23 13:45 Height 5 ft 8 in Weight 185 lb 2 oz BMI 28.1 BP 142/98 H Blood Pressure Location Lt brachial Position Sitting Pulse 75 Pulse Source Pulse Oximeter Pulse Oximetry (%) 98 Oxygen Delivery Method Room Air Intake Visit Reasons: Followup [place], left foot numbness Intake Note: pt says she was seen in the walk-in for left foot numbness and was given steroids with no relief Allergies No Known Allergies [No Known Allergies*] Allergy (Verified 04/17/23 00:49) Medication List - Last Reconciled 04/17/23 by Keesha Agustin MD atorvastatin 20 mg PO DAILY cholecalciferol (vitamin D3) 1,250 mcg PO QWEEK 3 months citalopram 40 mg PO DAILY clobetasol 0.05% 1 appl topical DAILY 30 weeks estradiol 0.01%(0.1mg/gram) pea-sized to urethra 2 times a week; alternate with clobetasol cream 30 days [Fish Oil 1 caplet PO DAILY] [multivitamin 1 tab PO DAILY] progesterone micronized 100 mg PO BEDTIME 30 days Tobacco use date assessed: 04/16/23 Fall risk assessment: 1 Fall in past year Last assessed Fall Risk: 04/16/23 Dental Screening Dental Screen Date: 04/16/23 Did you have a dental visit in the last 12 months?: No Did you have a dental problem in the last 6 months where you did not have access to dental care?: No Was dental information given to patient?: No HPI Followup [place], left foot numbness HPI Details 63-year-old lady here today for follow-up after recent walk-in visit, where she presented with numbness and difficulty with ambulation in her left foot. Complains of left foot dragging when she walks, has to consciously lifted up when walking. She has experienced is on and off for several years but now is getting worse and occurring almost on a daily basis. Denies any pain in her lower back. MRI of her lumbar spine in 2020 however showed the following results: Multifactorial degenerative changes including grade 1 anterolisthesis seen at L4-L5 resulting in severe spinal canal stenosis with thecal sac compression and near complete effacement of the spinal canal. Mass effect on the exiting right L4 nerve root. Marrow edema compatible with stress response is seen within the left L4 and bilateral L5 pedicles in addition to periarticular edema. At L5-S1 there is left subarticular extrusion causing compression of the traversing left S1 nerve root. Mild to moderate left neural foraminal stenosis. At L3-L4 there is shallow left foraminal protrusion which abuts the exiting left L3 nerve root. Denies any pain,, urinary incontinence or stool incontinence, weakness except for left foot, denies paresthesia going down left leg. She was prescribed steroids at the walk-in clinic which she states was ineffective. 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 Brother HTN (hypertension) Sister HTN (hypertension) Son Mental health disorder Daughter No problems noted. Social History Housing: House Patient Tobacco Use Status: Never used Tobacco e-Cigarette/Vaping Use: Never Used Advance Directives Date on File: 07/09/19 Current occupational status: employed Cognitive needs: No Hearing needs: No Vision needs: Yes Female Reproductive History Menstrual Age of Menarche: 10 Questionnaire Thrive Questionnaire Date Thrive assessed: 05/30/21 JEREMY-7 AMB Questionnaire JEREMY-7 Date JEREMY - 7 assessed: 09/20/21 Source: Developed by Drs. Joe Randolph, Shayna Chamberlain, Feliberto Velasquez and colleagues, with an educational tiffany from [employer]. Physical exam (Primary Care) Vital Signs: Last Vital Signs Pulse 75 04/16/23 13:45 BP 142/98 H 04/16/23 13:45 Pulse Ox 98 04/16/23 13:45 Oxygen Delivery Method Room Air 04/16/23 13:45 BMI result Body Mass Index 28.1 Tobacco/Smoking Status: Tobacco use Status Tobacco use date assessed 04/16/23 04/16/23 13:52 Patient Tobacco Use Status Never used Tobacco 04/16/23 13:45 e-Cigarette/Vaping Use Never Used 04/16/23 13:45 Thrive Assessment: Date of Thrive Assessment Date Thrive assessed 05/30/21 04/16/23 13:45 Const General: cooperative, comfortable and no acute distress Orientation/consciousness: patient oriented x3 Neck Neck: Yes full ROM, Yes no lymphadenopathy and Yes supple Chest Breast/axilla palpation: normal palpation of the breasts Resp Effort & Inspection: normal respiratory effort and able to speak in complete sentences Auscultation: clear to auscultation bilaterally Cardio Rate: regular rate Rhythm: regular rhythm Heart sounds: S1 normal heart sound present and S2 normal heart sound present GI Inspection: Yes normal to inspection Palpation (GI): Soft to palpation, nontender and no masses Auscultation: normal bowel sounds Back/Spine/Pelvis Back: No back tenderness Neuro Other: Positive footdrop on the left General: patient oriented x3, tone normal, moves all extremities and Normal light touch and pain sensation Cognition (Neuro): normal cognition Motor exam (neuro): 5/5 motor strength present throughout Extrem General: Yes normal to inspection, Yes full ROM, Yes no joint enlargement and Yes no calf tenderness Assessment and Plan Assessment & Plan (1) Left foot drop: Code(s): M21.372 - Foot drop, left foot Plan: No improvement with prednisone, stat MRI of lumbar spine ordered , follow-up after test done (2) Paresthesia of left foot: Code(s): R20.2 - Paresthesia of skin (3) Lumbar radiculopathy: Code(s): M54.16 - Radiculopathy, lumbar region Plan: MRI of lumbar spine Orders: Orders MR lumbar spine wo con 04/16/23 M21.372 - Foot drop, left foot, M51.36 - Other intervertebral disc degeneration, lumbar region, M54.16 - Radiculopathy, lumbar region, R20.2 - Paresthesia of skin Coding Level of Care Code Est Pt Level 3 (39658) Diagnoses Left foot drop M21.372 Paresthesia of left foot R20.2 Lumbar radiculopathy M54.16
== END 2023-04-16 15:46 | disposition home or self-care (01) ==
PROVIDERS: PCP Internal Medicine; Visit Provider Internal Medicine
DX: M21.372 Foot drop, left foot (principal); R20.2 Paresthesia of skin; M54.16 Radiculopathy, lumbar region
CPT/HCPCS: 99213

== ENCOUNTER 2023-05-06 09:34 | Outpatient (REF) | payer OTHER, SELFPAY ==
[2023-05-06 10:43] LABS: Alanine Aminotransferase 23 U/L (0-31); Anion Gap 11 (12-20); Aspartate Amino Transferase 20 U/L (5-31); Blood Urea Nitrogen 10 mg/dL (9-16); Calcium 8.9 mg/dL (8.4-10.2); Carbon Dioxide 26 mmol/L (22-29); Chloride 109 mmol/L (96-108); Cholesterol 194 mg/dL (<200); Estimated Glomerular Filt Rate > 60; Glucose Fasting 111 mg/dL (60-99); HDL Cholesterol 49 mg/dL (>40); LDL Cholesterol Calculated 124 mg/dL (<100); Potassium 3.8 mmol/L (3.3-5.1); Sodium 142 mmol/L (135-145); Triglycerides 107 mg/dL (<150)
[2023-05-06 10:59] LABS: Vitamin D 25-OH Total 53.6 ng/mL (>30)
== END 2023-05-06 09:35 | disposition home or self-care (01) ==
LOC: HO.LAB 09:34
PROVIDERS: PCP Internal Medicine; Visit Provider Internal Medicine
DX: Z00.01 Encounter for general adult medical examination with abnormal findings (principal); E55.9 Vitamin D deficiency, unspecified; R73.01 Impaired fasting glucose; E78.00 Pure hypercholesterolemia, unspecified; Z78.0 Asymptomatic menopausal state
CPT/HCPCS: 36415; 80048; 80061; 82306; 84450; 84460

== ENCOUNTER 2023-05-09 14:19 | Outpatient (AMB) | payer MEDICARE, SELFPAY ==
--- NOTE | 2023-05-09 14:35 | A.OFFPC_ITS ---
Vital Signs 05/09/23 14:36 Height 5 ft 8 in Weight 181 lb 2 oz BMI 27.5 BP 142/88 H Blood Pressure Location Lt brachial Position Sitting Pulse 89 Pulse Source Pulse Oximeter Pulse Oximetry (%) 99 Oxygen Delivery Method Room Air Intake Visit Reasons: 6 Month Follow Up ( Leg numbness) Intake Note: Pt is here to follow up for lab results and follow up for pt's leg numbness Allergies No Known Allergies [No Known Allergies*] Allergy (Verified 06/13/23 02:54) Medication List - Last Reconciled 05/09/23 by Keesha Agustin MD atorvastatin 20 mg PO DAILY cholecalciferol (vitamin D3) 1,250 mcg PO QWEEK 3 months citalopram 40 mg PO DAILY clobetasol 0.05% 1 appl topical DAILY 30 weeks estradiol 0.01%(0.1mg/gram) pea-sized to urethra 2 times a week; alternate with clobetasol cream 30 days [Fish Oil 1 caplet PO DAILY] [multivitamin 1 tab PO DAILY] progesterone micronized 100 mg PO BEDTIME 30 days Tobacco use date assessed: 05/09/23 Fall risk assessment: 1 Fall in past year Last assessed Fall Risk: 05/09/23 Dental Screening Dental Screen Date: 05/09/23 Did you have a dental visit in the last 12 months?: No Did you have a dental problem in the last 6 months where you did not have access to dental care?: No Was dental information given to patient?: No HPI 6 Month Follow Up ( Leg numbness) HPI Details 63 year old lady with hyperlipidemia, de pression, currently in remission, here today for follow-up. Recent fasting labs showed lipids are within normal limits, depression stable controlled on current dose of citalopram, for which she needs a refill.. Still having left footdrop, now complaining of intermittent episodes of numbness in her left leg mainly on the lateral aspect . No accompanying urinary or fecal incontinence, no weakness. MRI of her lumbar spine showed grade 1 anterolisthesis of L4 on L5 with advanced central canal narrowing and moderate bilateral neural foraminal narrowing with impingement upon the exiting nerve roots. At L5-S1 there is posterior disc bulging with small left paracentral disc protrusion which is in close proximity to the descending left S1 nerve root.. She does have an appointment already seen neurology on 05/14/2023 at 08:00am. Patient reports having have intermittent episodes of palpitations usually in the mornings. Watch has detected several brief episodes of atrial fibrillation. Denies any chest pain, no lightheadedness, no shortness of breath. [facility] Medical History Hx of atrial fibrillation, no current medication Lesion of skin of scalp Degenerative disc disease, lumbar Left foot drop Depression, major, in remission Menopause Vitamin D deficiency Lumbar disc herniation with radiculopathy Lumbar nerve root impingement 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 Brother HTN (hypertension) Sister HTN (hypertension) Son Mental health disorder Daughter No problems noted. Social History Housing: House Patient Tobacco Use Status: Never used Tobacco e-Cigarette/Vaping Use: Never Used Advance Directives Date on File: 07/09/19 Current occupational status: employed Cognitive needs: No Hearing needs: No Vision needs: Yes Female Reproductive History Menstrual Age of Menarche: 10 Questionnaire PHQ-9 Over the last 2 weeks, how often have you been bothered by any of the following problems? 1. Little interest or pleasure in doing things: not at all 2. Feeling down, depressed, or hopeless: not at all 3. Trouble falling or staying asleep, or sleeping too much: not at all 4. Feeling tired or having little energy: not at all 5. Poor appetite or overeating: not at all 6. Feeling bad about yourself - or that you are a failure or have let yourself or your family down: not at all 7. Trouble concentrating on things, such as reading the newspaper or watching television: not at all 8. Moving or speaking so slowly that other people could have noticed. Or the opposite - being so fidgety or restless that you have been moving around a lot more than usual: not at all 9. Thoughts that you would be better off or of hurting yourself in some way: not at all Total score: 0 Depression Screening Interpretation: Negative Depression Screening Done: Yes 77884 - PHQ-9 Billing: Yes Source: Developed by Drs. Joe Randolph, Shayna Chamberlain, Feliberto Velasquez and colleagues, with an educational tiffany from [employer]. Thrive Questionnaire Date Thrive assessed: 05/09/23 I am a: Patient What is your living situation today?: I have a steady place to live Within the past 12 months, did the food you bought not last and you didn't have the money to get more?: Never true Within the past 12 months, did you worry whether your food would run out before you got money to buy more?: Never true Do you have trouble paying for medicines?: No Do you have trouble getting transportation to medical appointments?: No Do you have trouble paying your heating and electricity bill?: No Do you have trouble taking care of your child, family member or friend?: No Do you have trouble with day-to-day activities such as bathing, preparing meals, shopping, managing finances, etc.?: No Are you currently unemployed and looking for a job?: No Are you interested in more education?: No AUDIT C Alcohol Use Questionnaire (AUDIT-C) 1. How often do you have a drink containing alcohol?: 2-4 times a month 2. How many drinks containing alcohol do you have on a typical day when you are drinking?: 1 or 2 3. How often do you have six or more drinks on one occasion?: Never Total Score: 2 JEREMY-7 AMB Questionnaire JEREMY-7 Date JEREMY - 7 assessed: 05/09/23 Feeling nervous, anxious, or on edge: 0 = Not at all Not being able to stop or control worryin = Not at all Worrying too much about different things: 0 = Not at all Trouble relaxin = Not at all Being so restless that it is hard to sit still: 0 = Not at all Becoming easily annoyed or irritable: 0 = Not at all Feeling afraid as if something awful might happen: 0 = Not at all Total JEREMY-7 score (0-4 normal; 5-9 mild; 10-14 moderate; 15-21 severe): 0 Source: Developed by Drs. Joe Randolph, Shayna Chamberlain, Feliberto Velasquez and colleagues, with an educational tiffany from [employer]. JEREMY-7 Assessment Billing JEREMY-7 Assessment Tool: JEREMY-7 Assessment 57422 Review of Systems Const Denies body aches, Denies chills, Denies fever(s) and Denies frequent falls ENT Reports no additional complaints Card Denies chest pain, Denies leg ulcers, Denies leg edema and Denies dyspnea Resp Denies cough and Denies dyspnea GI Denies abdominal pain, Denies change in bowel habits and Denies diarrhea Reports no additional complaints Musc Reports muscle weakness, Reports numbness, Reports radiating pain into limb and Reports tingling Neuro Denies frequent falls, Denies lack of coordination, Reports numbness, Reports radicular pain (had R sided sciatica recently but resolved.), Reports tingling and Reports paresthesias Endo Reports no additional complaints Leonidas/Lymph Reports no additional complaints Physical exam (Primary Care) Vital Signs: Last Vital Signs Pulse 89 05/09/23 14:36 BP 142/88 H 05/09/23 14:36 Pulse Ox 99 05/09/23 14:36 Oxygen Delivery Method Room Air 05/09/23 14:36 BMI result Body Mass Index 27.5 Tobacco/Smoking Status: Tobacco use Status Tobacco use date assessed 05/09/23 05/09/23 14:41 Patient Tobacco Use Status Never used Tobacco 05/09/23 14:35 e-Cigarette/Vaping Use Never Used 05/09/23 14:35 PHQ-9: PHQ-9 Score PHQ-9: Total score 0 05/09/23 15:18 Depression Screening Interpretation: Negative Thrive Assessment: Date of Thrive Assessment Date Thrive assessed 05/09/23 05/09/23 14:47 Const General: cooperative, comfortable and no acute distress Orientation/consciousness: patient oriented x3 HENMT Head: Yes scalp lesion ( slightly raised patch on scalp, nontender) Eyes General: appearance normal, both eyes and all related structures Neck Neck: Yes full ROM, Yes no lymphadenopathy and Yes supple Chest Breast/axilla palpation: normal palpation of the breasts Resp Effort & Inspection: normal respiratory effort and able to speak in complete sentences Auscultation: clear to auscultation bilaterally Cardio Rate: regular rate Rhythm: regular rhythm Heart sounds: S1 normal heart sound present and S2 normal heart sound present GI Inspection: Yes normal to inspection Palpation (GI): Soft to palpation, nontender and no masses Auscultation: normal bowel sounds Back/Spine/Pelvis Back: No back tenderness Neuro Other: Positive footdrop on the left General: patient oriented x3, tone normal, moves all extremities and Normal light touch and pain sensation Cognition (Neuro): normal cognition Motor exam (neuro): 5/5 motor strength present throughout Extrem General: Yes normal to inspection, Yes full ROM, Yes no joint enlargement and Yes no calf tenderness Results Reviewed Results Reviewed: Name: Sweetie Aponte Age/Sex: 63/F : 1960 Unit#: [id number] Attend Dr: Keesha Agustin MD Re05/06/23 Status: DEP REF Location: .LAB Disch: SPEC : [id number] MICK: 05/06/23 STATUS: COMP REQ : [id number] RECD: 05/06/[address]: Keesha Agustin MD COMP: 05/06/239 ENTERED: 05/06/[address] [facility] [address]: ORDERED: Met Prof Fast, AST, ALT, Lipid Panel, Vitamin D 25-OH Test Result Flag Reference Site Sodium 142 135-145 mmol/L Potassium 3.8 3.3-5.1 mmol/L CL 109 H 96-108 mmol/L CO2 26 22-29 mmol/L Gap 11 L 12-20 BUN 10 9-16 mg/dL Creat 0.75 0.5-1.4 mg/dL EGFR > 60 NOTE: For -[place] individuals, multiply the result by 1.210. Chronic Kidney Disease: Estimated GFR < 60 mL/min/1.73m2 Severe Kidney Disease: Estimated GFR < 15 mL/min/1.73m2 FBS 111 H 60-99 mg/dL A fasting glucose from 100-125 mg/dl is considered impaired (pre-diabetes). CA 8.9 # 8.4-10.2 mg/dL AST (GOT) 20 5-31 U/L ALT (GPT) 23 0-31 U/L Triglyceride 107 <150 mg/dL Desirable Triglyceride: less than 150 mg/dL Borderline High Triglyceride 150-199 mg/dL High Triglyceride: 200-499 mg/dL Very High Triglyceride: greater than or equal to 5OO mg/dL Cholesterol 194 <200 mg/dL Desirable Cholesterol: less than 200 mg/dL Borderline High Cholesterol: 200-239 mg/dL High Cholesterol: greater than 239 mg/dL LDL Calculated 124 H <100 mg/dL Desirable LDL: less than 100 mg/dL Near Optimal/Above Optimal LDL: 110-129 mg/dL Borderline High LDL: 130-159 mg/dL High LDL: 160-189 mg/dL Very High LDL: greater than or equal to 190 mg/dL HDL 49 >40 mg/dL Desirable HDL: greater than 40 mg/dL Note: This HDL assay may give artificially low results in patients with liver disease. Vit D 25-OH Tot 53.6 >30 ng/mL Health Based Reference Values* < 20 ng/mL Deficient 20-30 ng/mL Insufficient > 30 ng/mL Sufficient Assessment and Plan Assessment & Plan (1) Lesion of skin of scalp: Code(s): L98.9 - Disorder of the skin and subcutaneous tissue, unspecified Plan: Dermatology consult ordered (2) Depression, major, in remission: Code(s): F32.5 - Major depressive disorder, single episode, in full remission Plan: Continued on citalopram, refill sent (3) Palpitations: Code(s): R00.2 - Palpitations Plan: EKG done today showed normal sinus rhythm, ordered TSH free T4, cardiology c onsult ordered. (4) Hypercholesteremia: Code(s): E78.00 - Pure hypercholesterolemia, unspecified Plan: Reviewed recent fasting lipid profile with patient with levels within normal limits . Continue with atorvastatin , in addition to adherence to low- cholesterol diet and regular exercise, at least 30 minutes 3 to 4 times a week. Advised patient to make healthy food choices, eat more fruits, vegetables, whole grains, wild caught fish and low-fat dairy. Limit amount of meat and fried or fatty food products, as well as processed foods and fast foods. . (5) Impaired fasting glucose: Code(s): R73.01 - Impaired fasting glucose Plan: Your fasting blood sugars elevated above 100 mg/dL. Impaired glucose metabolism O2 at risk for developing diabetes mellitus type 2, as well as heart attack and stroke later on. Lifestyle changes at just weight loss, healthy eating habits, and regular exercise are important, and can prevent the progression to diabetes Orders: Orders TSH reflex Free T4 05/11/23 Z86.79 - Personal history of other diseases of the circulatory system Referrals Dermatology Referral L98.9 - Disorder of the skin and subcutaneous tissue, unspecified Cardiology Referral Z86.79 - Personal history of other diseases of the circulatory system Medications: Refilled citalopram 40 mg PO DAILY 90 tabs 3RF Coding Level of Care Code Est Pt Level 4 (95062) Diagnoses Lesion of skin of scalp L98.9 Depression, major, in remission F32.5 Palpitations R00.2 Hypercholesteremia E78.00 Impaired fasting glucose R73.01 Additional Codes JEREMY-7 Assessment Billing - JEREMY-7 Assessment Tool: JEREMY-7 Assessment 80069 ([id number])
[2023-05-09 14:36] VITALS: BP 142/88; PULSE 89; O2SAT 99; BMI 27.5
== END 2023-05-09 15:37 | disposition home or self-care (01) ==
PROVIDERS: PCP Internal Medicine; Visit Provider Internal Medicine
DX: R00.2 Palpitations (principal); F32.5 Major depressive disorder, single episode, in full remission; L98.9 Disorder of the skin and subcutaneous tissue, unspecified; E78.00 Pure hypercholesterolemia, unspecified; R73.01 Impaired fasting glucose
CPT/HCPCS: 99214

== ENCOUNTER 2023-05-11 10:45 | Outpatient (REF) | payer OTHER, SELFPAY ==
[2023-05-11 12:38] LABS: TSH reflex Free T4 2.56 uIU/mL (0.32-4.0)
== END 2023-05-11 10:46 | disposition home or self-care (01) ==
LOC: HO.LAB 10:45
PROVIDERS: PCP Internal Medicine; Visit Provider Internal Medicine
DX: Z86.79 Personal history of other diseases of the circulatory system (principal)
CPT/HCPCS: 36415; 84443

== ENCOUNTER 2023-05-14 08:00 | Outpatient (AMB) | payer OTHER, SELFPAY ==
--- NOTE | 2023-05-14 08:04 | A.OFFVIS_ITS ---
Intake Vital Signs 05/14/23 08:05 Height 5 ft 8 in Weight 185 lb 2 oz BMI 28.1 BP 150/82 H Blood Pressure Location Lt brachial Position Sitting Respiration 16 Pulse 72 Pulse Source Pulse Oximeter Pulse Oximetry (%) 98 Oxygen Delivery Method Room Air Intake Visit Reasons: INP-Foot drop/Left foot - Confirmed Intake Note: Pt presents to the office for new pt evaluation for left foot weakness. 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 Pt reports left foot drop. She fell 2 years ago, had lumbar MRI done and was told that she has pinched nerve, since then left foot drop started. It happened randomly, but not frequent. However, the left foot drop has happened everyday since March. She stumbles a lot, can't picking tech her left foot, and intermittent burning sensation She reports numbness and tingling on her left foot. Pt a can have a lot of cramps on her left leg, mostly at night or when she sits long time. She needs to stop and stretch her leg when she drives long distance. Denies back pain. Pt had a repeat lumbar MRI result (Apr, 2023) reviewed. There is no evidence of acute fracture or traumatic subluxation of lumbar spine. Grade 1 anterolisthesis of L4 and L5 is likely degenerative in nature. Multilevel degerative disc disease most pronounced at L4-L5. 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 root impingement 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 Brother HTN (hypertension) Sister HTN (hypertension) Son Mental health disorder Daughter No problems noted. Social History Housing: House Patient Tobacco Use Status: Never used Tobacco e-Cigarette/Vaping Use: Never Used Advance Directives Date on File: 07/09/19 Current occupational status: employed Cognitive needs: No Hearing needs: No Vision needs: Yes Female Reproductive History Menstrual Age of Menarche: 10 Review of Systems Const All systems reviewed & are unremarkable except as noted in HPI and below Physical Exam Vital Signs: Last Vital Signs Pulse 72 05/14/23 08:05 Resp 16 05/14/23 08:05 BP 150/82 H 05/14/23 08:05 Pulse Ox 98 05/14/23 08:05 Oxygen Delivery Method Room Air 05/14/23 08:05 BMI result Body Mass Index 28.1 Const General: cooperative Nutritional Appearance: overweight Orientation/consciousness: patient oriented x3 Neck Neck: Yes full ROM and Yes supple Resp Effort & Inspection: normal respiratory effort and able to speak in complete sentences Neuro Other: difficulty lifting up the left foot. General: patient oriented x3 and moves all extremities Cranial nerves: Yes CN's II-XII intact bilaterally Cognition (Neuro): normal cognition Motor exam (neuro): 5/5 motor strength present throughout (Left lower extremity strength 4/5), Pronator motor function not present and no tremor noted Deep tendon reflexes (DTR's): Left biceps reflex intensity grade: 2+, Right brachioradialis reflex intensity grade: 2+, Left brachioradialis reflex intensity grade: 3+ and Right patellar reflex intensity grade: 3+ Extrem General: Yes muscle atrophy (left lower extremity) Psych Appearance: grossly normal Mental Status: mental status grossly normal Affect: normal affect Attitude: cooperative Assessment & Plan Assessment & Plan (1) Left foot drop: Code(s): M21.372 - Foot drop, left foot (2) Paresthesia of left foot: Code(s): R20.2 - Paresthesia of skin (3) Leg cramping: Code(s): R25.2 - Cramp and spasm Plan Advised patient to try physical therapy for gait training and foot brace for foot drop. Advised patient to undergo EMG. May try magnesium glycinate 200mg-400 mg qHS for muscle cramping. Orders: Orders NE electromyogram (EMG) Today M21.372 - Foot drop, left foot, R20.2 - Paresthesia of skin PT Evaluation and Treatment Today M21.372 - Foot drop, left foot, R20.2 - Paresthesia of skin Coding Level of Care Code New Pt Level 4 (32378) Diagnoses Left foot drop M21.372 Paresthesia of left foot R20.2 Leg cramping R25.2
[2023-05-14 08:05] VITALS: BP 150/82; PULSE 72; RESP 16; O2SAT 98; BMI 28.1
== END 2023-05-14 08:43 | disposition home or self-care (01) ==
PROVIDERS: PCP Internal Medicine; Visit Provider Nurse Practitioner Family
DX: M21.372 Foot drop, left foot (principal); R20.2 Paresthesia of skin; R25.2 Cramp and spasm
CPT/HCPCS: 99204

== ENCOUNTER → 2023-05-14 08:00 | Outpatient (BNVA) | payer OTHER, SELFPAY | PROVIDERS: PCP Internal Medicine; Visit Provider Nurse Practitioner Family | DX: M21.372 Foot drop, left foot (principal); R20.2 Paresthesia of skin; R25.2 Cramp and spasm | CPT/HCPCS: 99202 ==

== ENCOUNTER 2023-05-27 14:55 | Outpatient (AMB) | payer OTHER, SELFPAY ==
[2023-05-27 14:59] VITALS: BP 120/80; PULSE 71; BMI 27.8
--- NOTE | 2023-05-27 14:59 | MHC.OFFVIS ---
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: No Allergies No Known Allergies [No Known Allergies*] Allergy (Verified 05/14/23 08:05) Medication List - Last Reconciled 05/27/23 by Lee Hurley MD atorvastatin 20 mg PO DAILY cholecalciferol (vitamin D3) 1,250 mcg PO QWEEK 3 months citalopram 40 mg PO DAILY clobetasol 0.05% 1 appl topical DAILY 30 weeks estradiol 0.01%(0.1mg/gram) pea-sized to urethra 2 times a week; alternate with clobetasol cream 30 days [Fish Oil 1 caplet PO DAILY] magnesium gluconate 250 mg PO BID [multivitamin 1 tab PO DAILY] progesterone micronized 100 mg PO BEDTIME 30 days HPI HPI Comments History of Present Illness Details Thank you for referring Sweetie in cardiology consultation today for management of irregular heartbeat. She is a pleasant 63-year-old woman with prior history of hyperlipidemia. Patient recently had her smart watch updated and it is been telling at nighttime she has multiple episodes of atrial fibrillation. No EKG recorded at that time. However she also has symptoms of palpitation which she feels rapid heart rate and the can last up to 20 minutes. However no EKGs recorded during that time in the watch does not tell that she has atrial fibrillation. She is concerned about this because of her family history of her sister having atrial fibrillation. Father had a stroke in later years but not related to AFib. She is limited in activity level due to issues with the left lower extremity. She denies any symptoms exertional chest pain or shortness of breath. No lightheadedness, syncope. No orthopnea, PND, leg edema. 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 Brother HTN (hypertension) Sister HTN (hypertension) Son Mental health disorder Daughter No problems noted. Social History Housing: House Patient Tobacco Use Status: Never used Tobacco e-Cigarette/Vaping Use: Never Used Advance Directives Date on File: 07/09/19 Current occupational status: employed Cognitive needs: No Hearing needs: No Vision needs: Yes Female Reproductive History Menstrual Age of Menarche: 10 Review of Systems Const Denies chills, Denies daytime sleepiness, Denies fatigue, Denies fever(s), Denies frequent falls, Denies poor appetite, Denies snoring, Denies stops breathing during sleep, Denies weakness, Denies weight gain and Denies weight loss Eyes Denies loss of vision ENT Denies dizziness and Denies hearing loss Card Denies chest pain, Denies claudication, Denies leg edema, Denies lightheadedness, Denies palpitations, Denies dyspnea, Denies dyspnea on exertion and Denies orthopnea Resp Denies cough, Denies excessive phlegm production, Denies dyspnea, Denies dyspnea on exertion, Denies snoring and Denies wheezing GI Denies abdominal pain, Denies hematochezia, Denies change in bowel habits, Denies nausea and Denies vomiting Denies urinary frequency and Denies dysuria Musc Denies arthralgias, Denies muscle weakness, Denies numbness and Denies other (frequent falls) Skin/Breast Denies nail changes and Denies rash Neuro Denies Abnormal speech present, Denies dizziness, Denies frequent falls, Denies loss of vision, Denies memory loss, Denies numbness and Denies weakness Psych Denies depression and Denies memory loss Endo Denies fatigue and Denies palpitations Leonidas/Lymph Reports easy bruising and Reports other (anemia) Aller/Immun Denies wheezing Physical Exam Vital Signs: Last Vital Signs Pulse 71 05/27/23 14:59 BP 120/80 05/27/23 14:59 BMI result Body Mass Index 27.8 Const General: cooperative, comfortable, no acute distress, alert and awake Nutritional Appearance: overweight Orientation/consciousness: patient oriented x3 Limitations: no limitations HEENT Head: Yes normocephalic and Yes atraumatic Neck Neck: Yes trachea midline, Yes supple and Yes no JVD Resp Effort & Inspection: normal respiratory effort Auscultation: clear to auscultation bilaterally Cardio Jugular venous distension: no JVD Palpation: normal PMI Rate: regular rate Rhythm: regular rhythm Heart sounds: S1 normal heart sound present, S2 normal heart sound present, no click, no gallops, no murmurs and no rubs GI Auscultation: normal bowel sounds Skin General skin exam: no rashes or lesions noted Neuro General: patient oriented x3 and no focal motor deficits Speech: No Abnormal speech present Extrem General: Yes no clubbing, cyanosis or edema Psych Appearance: grossly normal Office Procedures EKG Details: EKG shows normal sinus rhythm nonspecific T-wave changes [id number], Complete Assessment & Plan Assessment & Plan (1) Palpitations: Code(s): R00.2 - Palpitations Plan: Patient's symptoms palpitation long-lasting but no associated abnormality detected by smart watch although smart watch is detecting nocturnal episodes of atrial fibrillation with irregular heartbeat. Unfortunately there is no EKG recorded with it. This happens quite frequently more than once a week. Would suggest a 7 day Holter monitor to further assess for presence of atrial fibrillation as this would change our management plan. Will also obtain echocardiogram to evaluate for cardiac structure and function especially biatrial chamber size.CHADSVASc score of 2, will discuss further findings based on the findings of test was also mentioned above. Avoidance of stimulants was discussed. No specific pharmacotherapy is recommended at this point in time. Patient does have hyperlipidemia with last LDL is elevated 124 mg/dL despite being on statin therapy. Consider maximizing statin therapy. Target goal LDL less than 80 mg/dL. Smoking cessation was advised. Consider coronary calcium score. Will follow up in the clinic in 6 weeks time, sooner p.r.n.. Thank you for allowing me to partake in her care Coding Level of Care Code New Pt Level 4 (21817) Diagnoses Palpitations R00.2 CPT Codes EKG - CPT: 21236-[id number], Complete ([id number])
== END 2023-05-27 15:45 | disposition home or self-care (01) ==
PROVIDERS: PCP Internal Medicine; Visit Provider Internal Medicine Cardiovascular Disease
DX: R00.2 Palpitations (principal)
CPT/HCPCS: 93010; 99204

== ENCOUNTER → 2023-05-27 14:55 | Outpatient (BNVA) | payer OTHER, SELFPAY | PROVIDERS: PCP Internal Medicine; Visit Provider Internal Medicine | DX: R00.2 Palpitations (principal) | CPT/HCPCS: 93005; 99202 ==

== ENCOUNTER 2023-05-30 08:21 | Outpatient (REF) | payer OTHER, SELFPAY ==
--- NOTE | 2023-05-30 08:24 | EMG_ITS ---
Left tibial and peroneal motor studies were performed. Left superficial peroneal and sural sensory studies were performed. Tibial H-reflex was obtained and needle examination was performed. IMPRESSION: 1. 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 2. 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 MD IVIS Nielsen/KEHINDE / [id number]
== END 2023-05-30 08:22 | disposition home or self-care (01) ==
LOC: HO.NEURO 08:21
PROVIDERS: PCP Internal Medicine; Visit Provider Nurse Practitioner Family
DX: R20.2 Paresthesia of skin (principal); M21.372 Foot drop, left foot
CPT/HCPCS: 95886; 95909

== ENCOUNTER → 2023-06-14 13:43 | Outpatient (REF) | payer OTHER, SELFPAY ==
--- NOTE | 2023-06-14 13:46 | HM_ITS ---
* Total monitoring time 7 days. * Underlying rhythm is sinus with an average ventricular rate of 72/Min. * Rare supraventricular and ventricular ectopy. * No significant pauses or AV blocks. * No patient markers. * Diary mentions fluttering, pain over left breast during the 'afternoon', but no times listed. MTDD
--- NOTE | 2023-06-14 13:46 | CA_ITS ---
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 There is moderately increased left ventricular wall thickness. The visually estimated ejection fraction is between 55-60%. - E/E prime ratio is between 8 and 15 consistent with indeterminate filling pressures. - Normal right ventricular cavity size and systolic function. - The left atrium is mildly dilated. The right atrium is normal in size. Findings Left Ventricle Normal left ventricular size and systolic function. There is moderately increased left ventricular wall thickness. The visually estimated ejection fraction is between 55-60%. There is no evidence of regional wall motion abnormalities. Abnormal diastolic function is noted. Spectral Doppler is indicative of an impaired relaxation filling pattern. E/E prime ratio is between 8 and 15 consistent with indeterminate filling pressures. There is severe septal asymmetric hypertrophy. Right Ventricle Normal right ventricular cavity size and systolic function. Atria The left atrium is mildly dilated. The right atrium is normal in size. Aortic Valve Normal aortic valve structure and function. There is no aortic valve stenosis. There is no aortic valve regurgitation. Mitral Valve The mitral valve appears normal. There is trace mitral valve regurgitation. There is no mitral valve stenosis. Pulmonic Valve The pulmonic valve is normal. There is trace pulmonic valve regurgitation. Tricuspid Valve Normal tricuspid valve structure. There is trace tricuspid valve regurgitation. Normal right atrial pressure. There is no evidence of pulmonary hypertension. Great Vessels All visible segments of the aorta are normal in size. The visualized portions of the pulmonary artery and branches are normal. Venous The inferior vena cava is normal in size and collapses greater than 50% with inspiration. Pericardium/Pleural There is no evidence of pericardial effusion. Prior Study Comparison No prior study available for comparison. Measurements 2D Linear Measurements IVSd: 1.42 0.6-0.9/0.6-1.0 cm LVIDd: 4.74 3.9-5.3/4.2-5.9 cm LVIDd Index: 2.43 2.4-3.2/2.2-3.1 cm/m2 LVIDs: 2.65 2.0-3.6 cm LVPWd: 1.25 0.7-1.1 cm LA Diam: 3.90 2.7-3.8/3.0-4.0 cm LAIDs Index: 2.00 1.5-2.3 cm/m2 LV Mass: 312.39 67-162/88-224 g LV Mass Index: 160.20 43-95/49-115 g/m2 LVOT Diam: 2.20 3.0+(-)1.3 cm 2D Systolic Function EF 4C: 61.30 >55% EF 2C: 59.90 >55% EF BiP: 60.90 >55% Mitral Valve MV Pk E: 0.52 MV PK A: 0.82 MV Decel Time: 314.00 E/A: 0.60 E'Lateral: 5.11 E'Medial: 4.46 E/E' Med: 11.60 E/E' Lat: 10.10 PHT: 81.00 MVA PHT: 2.72 Decel Cannon: 1.84 Aortic Valve AoV Pk Andrew: 1.22 AoV Mn Andrew: 0.88 AoV VTI: 0.26 AoV Pk Grad: 6.00 Aov Mn Grad: 3.00 RAHEL Cont.VTI: 2.46 LVOT LVOT Pk Andrew: 0.80 LVOT Mn Andrew: 0.56 LVOT VTI: 0.17 LVOT Pk Grad: 3.00 LVOT Mn Grad: 1.00 LVOT Diam: 2.20 LVOT Area: 3.80 Diastolic Function MV Pk E: 0.52 MV Pk A: 0.82 E/A: 0.60 E'Medial: 4.46 E/E' Med: 11.60 E' Laterial: 5.11 E/E' Lat: 10.10 Right Ventricle TAPSE (mm): 16.90 TVS' Andrew: 10.10 Tricuspid Valve TR Pk Andrew: 2.20 TR Pk Grad: 19.00 RA Press: 8.00 RVSP: 27.00 Great Vessels Aorta Sinus of Valsalva: 3.40 2.0-3.5 cm Ao Asc: 3.30 2.1-3.4 cm Ao Arch: 3.40 Pulmonary Valve PV Pk Andrew: 1.00 Peak PV Grad: 4.00 Updated in Other Vendor System with Status of Final Chandra Bridges MD electronically signed on 06/16/2023 2:00:42 PM with status of Final
== END ==
LOC: HO.CARD 13:43
PROVIDERS: PCP Internal Medicine; Visit Provider Internal Medicine Cardiovascular Disease
DX: R00.2 Palpitations (principal)
CPT/HCPCS: 93242; 93306

== ENCOUNTER → 2023-06-14 13:46 | Outpatient (BNV) | payer OTHER, SELFPAY | PROVIDERS: PCP Internal Medicine; Visit Provider Internal Medicine Cardiovascular Disease | DX: I47.10 Supraventricular tachycardia, unspecified (principal) | CPT/HCPCS: 93244; 93306 ==

== ENCOUNTER 2023-07-17 09:20 | Outpatient (AMB) | payer OTHER, SELFPAY ==
--- NOTE | 2023-07-17 09:24 | A.OFFVIS_ITS ---
Intake Vital Signs 07/17/23 09:26 Height 5 ft 8 in Weight 176 lb 9.444 oz BMI 26.8 BP 110/80 Blood Pressure Location Lt brachial Position Sitting Pulse 78 Intake Visit Reasons: f/up 7 day / echo Intake Note: follow up for 7 day echo. Paster Supervisor Required: No Allergies No Known Allergies [No Known Allergies*] Allergy (Verified 06/13/23 02:54) Medication List - Last Reconciled 07/17/23 by Lee Hurley MD atorvastatin 40 mg PO DAILY cholecalciferol (vitamin D3) 1,250 mcg PO QWEEK 3 months citalopram 40 mg PO DAILY clobetasol 0.05% 1 appl topical DAILY 30 weeks estradiol 0.01%(0.1mg/gram) pea-sized to urethra 2 times a week; alternate with clobetasol cream 30 days [Fish Oil 1 caplet PO DAILY] magnesium gluconate 250 mg PO BID [multivitamin 1 tab PO DAILY] progesterone micronized 100 mg PO BEDTIME 30 days HPI HPI Comments History of Present Illness Details Sweetie comes for follow-up. She continues to have symptoms of palpitation mostly at nighttime. Her Apple watch suggest AFib although there is no EKG associated with it. Symptoms last for many minutes and then subside. Her seven-day monitor did not show any significant arrhythmias. Echocardiogram shows normal LV ejection fraction but moderate LVH with mild left atrial enlargement. She has no history of hypertension. She does have history of peripheral demyelinating neuropathy with right leg numbness as well as foot drop. She has not seen a neurologist. Family history brother has been diagnosed with heart failure, she has not exactly sure. Mother as atrial fibrillation. 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 Brother HTN (hypertension) Sister HTN (hypertension) Son Mental health disorder Daughter No problems noted. Social History Housing: House Patient Tobacco Use Status: Never used Tobacco e-Cigarette/Vaping Use: Never Used Advance Directives Date on File: 07/09/19 Current occupational status: employed Cognitive needs: No Hearing needs: No Vision needs: Yes Female Reproductive History Menstrual Age of Menarche: 10 Review of Systems Const Denies chills, Denies fatigue, Denies fever(s), Denies frequent falls, Denies weakness, Denies weight gain and Denies weight loss ENT Denies dizziness Card Denies chest pain, Denies leg edema, Denies lightheadedness, Denies palpitations, Denies dyspnea, Denies dyspnea on exertion, Denies orthopnea and Denies other (loss of consciousness) Resp Denies cough, Denies dyspnea and Denies dyspnea on exertion GI Denies hematochezia and Denies change in stool character Musc Denies abnormal gait, Denies muscle weakness, Denies numbness, Denies radiating pain into limb and Denies tingling Neuro Denies Abnormal speech present, Denies abnormal gait, Denies dizziness, Denies frequent falls, Denies numbness, Denies tingling and Denies weakness Endo Denies fatigue and Denies palpitations Physical Exam Vital Signs: Last Vital Signs Pulse 78 07/17/23 09:26 BP 110/80 07/17/23 09:26 BMI result Body Mass Index 26.8 Const General: cooperative, comfortable, no acute distress, alert and awake Nutritional Appearance: overweight Orientation/consciousness: patient oriented x3 Limitations: no limitations HEENT Head: Yes normocephalic and Yes atraumatic Neck Neck: Yes trachea midline, Yes supple and Yes no JVD Resp Effort & Inspection: normal respiratory effort Auscultation: clear to auscultation bilaterally Cardio Jugular venous distension: no JVD Palpation: normal PMI Rate: regular rate Rhythm: regular rhythm Heart sounds: S1 normal heart sound present, S2 normal heart sound present, no click, no gallops, no murmurs and no rubs GI Auscultation: normal bowel sounds Skin General skin exam: no rashes or lesions noted Neuro General: patient oriented x3 and no focal motor deficits Speech: No Abnormal speech present Extrem General: Yes no clubbing, cyanosis or edema Psych Appearance: grossly normal Assessment & Plan Assessment & Plan (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 Infiltrative cardiac disorder such as amyloidosis needs to be ruled out. Will suggest a cardiac MRI to further assess for any suggestion of cardiac amyloidosis. Meanwhile will workup for light chain amyloidosis with serum free light chains as well as serum and urine electrophoresis. If any abnormality will refer her to Hematology. Meanwhile advised her to also be seen by Neurology and see if there is any connection. Genetic ATTR type cardiac amyloidosis also possible. If necessary will pursue biopsy and/or PYP scan. (2) Palpitations: Code(s): R00.2 - Palpitations Plan: Symptoms of palpitation, this could still represent atrial fibrillation given left atrial enlargement as well as LVH and family history. Suggest her to undergo implantable loop recorder placement in near future. Risks, benefits, alternatives were discussed with her. She understands and agrees. If she does have atrial fibrillation this was significantly change her medical management. Will follow with her after implantable loop recorder placement. Orders: Orders Protein Electrophoresis, Serum Today I42.8 - Other cardiomyopathies MR cardiac morph fnct w con 1 Week I42.8 - Other cardiomyopathies [place]/Lambda Light Chain Serum Today I42.8 - Other cardiomyopathies Protein Electrophoresis,Ran Ur Today I42.8 - Other cardiomyopathies Coding Level of Care Code Est Pt Level 4 (33105) Diagnoses Infiltrative cardiomyopathy I42.8 Palpitations R00.2
[2023-07-17 09:26] VITALS: BP 110/80; PULSE 78; BMI 26.8
== END 2023-07-17 10:07 | disposition home or self-care (01) ==
PROVIDERS: PCP Internal Medicine; Visit Provider Internal Medicine Cardiovascular Disease
DX: I42.8 Other cardiomyopathies (principal); R00.2 Palpitations
CPT/HCPCS: 99214

== ENCOUNTER 2023-07-17 09:20 | Outpatient (REF) | payer MEDICARE, SELFPAY ==
[2023-07-19 09:33] LABS: PEU-Rand. Prot/Creat Ratio 90 mg/g creat (24-184); PEU-Random Ur. Gamma Globulin 0 %; PEU-Random Urine A1 Globulin 0 %; PEU-Random Urine A2 Globulin 0 %; PEU-Random Urine Albumin 100 %; PEU-Random Urine Beta Globulin 0 %; PEU-Random Urine Creatinine 155 mg/dL (20-275); PEU-Random Urine Protein 14 mg/dL (5-24)
[2023-07-19 11:28] LABS: Prot Elec - Albumin 3.8 g/dL (3.8-4.8); Prot Elec - Alpha1 0.3 g/dL (0.2-0.3); Prot Elec - Alpha2 0.6 g/dL (0.5-0.9); Prot Elec - Beta 1 0.4 g/dL (0.4-0.6); Prot Elec - Beta 2 0.3 g/dL (0.2-0.5); Prot Elec - Gamma 0.9 g/dL (0.8-1.7); Prot Elec - Total Protein 6.2 g/dL (6.1-8.1)
[2023-07-24 16:23] LABS: Kappa, Serum 206 mg/dL (176-443); Lambda, Serum 86 mg/dL (91-240)
== END 2023-07-17 09:21 | disposition home or self-care (01) ==
LOC: HO.LAB 09:20
PROVIDERS: PCP Internal Medicine; Visit Provider Internal Medicine Cardiovascular Disease
DX: I42.8 Other cardiomyopathies (principal); R00.2 Palpitations
CPT/HCPCS: 82570; 83883; 84156; 84165; 84166; 99212

== ENCOUNTER 2023-07-24 07:24 | Outpatient (REF) | payer MEDICARE, SELFPAY ==
--- NOTE | ~2023-07-24 | MM_ITS ---
EXAMINATION: MM SCREENING DIGITAL BREAST TOMOSYNTHESIS, BILATERAL CLINICAL INFORMATION: Screening. Asymptomatic. COMPARISON: Mammography: This study is compared with prior exams dating back to 2018. TECHNIQUE: Digital breast tomosynthesis is performed in both the craniocaudal and mediolateral oblique views along with computer-aided detection (CAD). Synthesized 2D images are generated from the tomosynthesis. FINDINGS: There are scattered areas of fibroglandular density (ACR BI-RADS breast composition Category b). In the upper outer quadrant of the right breast, there is a focal asymmetry at a middle depth. It warrants additional mammographic and targeted sonographic evaluation. In the left breast, there are no significant masses, abnormal calcifications, or other abnormalities. MM/MM tomosynthesis screening BI IMPRESSION: Focal asymmetry of the upper outer quadrant of the right breast warrants additional mammographic and targeted sonographic imaging. No mammographic signs of malignancy left breast. ASSESSMENT: BI-RADS BI-RADS 0 - Incomplete: Needs additional Imaging. RECOMMENDATION: 1. Additional views of the right breast. 2. Targeted ultrasound if warranted after review of the additional views. 3. Radiology department staff will contact the patient for additional imaging. Additional Imaging required This examination should not preclude the clinical evaluation of a suspicious palpable abnormality. This patient's information was entered into a reminder system with a target due date for their next mammogram.
== END 2023-07-24 07:25 | disposition home or self-care (01) ==
LOC: HO.MAMMO 07:24
PROVIDERS: PCP Internal Medicine; Visit Provider Internal Medicine
DX: Z12.31 Encounter for screening mammogram for malignant neoplasm of breast (principal)
CPT/HCPCS: 77063; 77067

== ENCOUNTER → 2023-07-24 07:30 | Outpatient (BNV) | payer MEDICARE, SELFPAY | PROVIDERS: PCP Internal Medicine; Visit Provider Radiology Diagnostic Radiology | DX: Z12.31 Encounter for screening mammogram for malignant neoplasm of breast (principal) | CPT/HCPCS: 77063; 77067 ==

== ENCOUNTER → 2023-07-24 13:49 | Day surgery (SDC) | payer MEDICARE, SELFPAY ==
[2023-07-24 14:17] VITALS: BP 180/98; PULSE 69; RESP 18; TEMP 36.4; O2SAT 95; BMI 27.4
--- NOTE | 2023-07-24 14:51 | P.BOP_ITS ---
Brief Operative Note Date of Service: 07/24/23 Pre-op diagnosis: Palpitation with possible infiltrative cardiomyopathy Post-op diagnosis: same Procedure: Loop recorder implantation Implants: After obtaining informed consent patient was brought to the minor surgery suite. Patient was then laid on the operating table in supine position. Patient is precordial area was then prepped and draped in a sterile fashion. Patient was then given 2% lidocaine with epinephrine intradermally and subcutaneously in the 4th intercostal space. A small incision was then made. A [employer] implantable loop recorder with serial number [id number] was then implanted in the subcutaneous space using modified Seldinger technique. R-wave measured 0.44- 0.48 mV. Incision was then closed with Steri-Strips. Pressure dressing was then applied. Surgeon: Lee Hurley MD Anesthesia: local Was an Night Shift Manager used for this Procedure?: No Estimated blood loss (mL): 2 Pathology: none sent Condition: stable Disposition: same day
== END ==
LOC: HO.SSS 13:50
PROVIDERS: PCP Internal Medicine; Visit Provider Internal Medicine Cardiovascular Disease
PROC: (CPT 33285; principal; 2023-07-24 14:00)
DX: R00.2 Palpitations (principal)
CPT/HCPCS: 33285; C1764

== ENCOUNTER → 2023-07-24 13:49 | Outpatient (BNV) | payer MEDICARE, SELFPAY | PROVIDERS: PCP Internal Medicine; Visit Provider Internal Medicine Cardiovascular Disease | DX: R00.2 Palpitations (principal) | CPT/HCPCS: 33285 ==

== ENCOUNTER 2023-07-29 11:00 | Outpatient (RCR) | payer OTHER, SELFPAY ==
--- NOTE | 2023-05-24 14:53 | MHC.PT.EP ---
[facility] [place] [facility] [place] [facility] [place] [facility] [address] Curt Alvarado [address] [phone] F: [phone] F: [phone] F: [phone] F: [phone] Physical Therapy Plan of Care Date of Evaluation: 05/24/23 Date of Surgery: Diagnosis: paresthesia of skin foot drop, left foot Assessment: 63 y/o female referred to PT with paresthesia of skin and L foot drop. S/s consistent with lumbar radiculopathy resulting in difficulty with ambulation secondary to decreased strength of L hip/ankle, decreased calf length, altered sensation L lateral foot/leg, impaired posture and impaired gait pattern. Recommend PT 2x/week for 6 weeks to address impairments, implement HEP, and optimize functional mobility. 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 Manual therapy to restore motion and function. Therapeutic exercise to improve strength and flexibility. Neuromuscular re-education for posture and balance. Therapeutic activities to return to functional activities of daily living. Electronically signed by: Iris Liu PT Please sign and return to therapist. Thank you for your referral.
--- NOTE | 2023-07-29 11:58 | MHC.PT.DC ---
[facility] [place] Office [place] Office [place] Office [address] Curt Alvarado [address] [phone] F: [phone] F: [phone] F: [phone] F: [phone] Physical Therapy Discharge Report Diagnosis: paresthesia of skin foot drop, left foot Date of Surgery: Date of Evaluation: 05/24/23 Date of Discharge: 07/29/23 Treatments to Date: 9 Cancellations to Date: 1 No Shows to Date: 0 Discharge Status: Improved Function Independent with HEP Discharge Summary: SHe has been very motivated throughout her physical therapy program and is compliant with HEP. She has improved gait pattern with a more consistent foot clearance but not 100% of the time. We discussed how to progress length of a walking program starting at 10min/walk 2-3x/week and gradually progressing length as she has not returned to walks for walking sake, but is able to walk trough grocery stores. Ankle pf/df strength 3+/5. LEFS improved to 69/80 and pt reports feeling better since starting PT. At this time, she will continue with I HEP and f/u with neurologist in August (scheduled appointment). No further questions at this time. Electronically signed by: Iris Liu PT Please sign and return to therapist. Thank you for your referral.
== END 2023-07-29 11:59 | disposition home or self-care (01) ==
LOC: HO.PTCHIC 11:00
PROVIDERS: PCP Internal Medicine; Visit Provider Nurse Practitioner Family
DX: R20.2 Paresthesia of skin (principal); M21.372 Foot drop, left foot
CPT/HCPCS: 97110; 97112; 97162

== ENCOUNTER 2023-07-30 09:54 | Outpatient (REF) | payer OTHER, SELFPAY ==
[2023-07-30 16:35] LABS: Urine Cytology See Pathology rpt
== END 2023-07-30 09:55 | disposition home or self-care (01) ==
LOC: HO.LAB 09:54
PROVIDERS: PCP Internal Medicine; Visit Provider Urology
DX: C67.9 Malignant neoplasm of bladder, unspecified (principal)
CPT/HCPCS: 52000; 81003; 88112; 99212

== ENCOUNTER 2023-07-30 09:54 | Outpatient (AMB) | payer OTHER, SELFPAY ==
--- NOTE | 2023-07-30 10:05 | MHC.OFFVIS ---
Intake Intake Visit Reasons: 6m/cysto confirmed Intake Note: Patient present today for a Cystoscopy Meds: Estradiol, Progesterone Allergies to Antibiotic: No Known Allergies Blood Thinner: None Urinalysis test clear for Cysto? Yes Retail Loan Officer Required: No Accompanied by: Self / Same As Patient Allergies No Known Allergies [No Known Allergies*] Allergy (Verified 07/30/23 10:09) HPI HPI Comments History of Present Illness Details Sweetie is a pleasant female. She is seen for the following urologic conditions - bladder cancer - lichen sclerosis - hot flashes Six-month follow-up Prior bladder cancer Did have Botox last performed 523 Has managed lichen sclerosis with combination intermittent topical steroid +estradiol on alternate days Will check bladder in 6 months. If stable can move to yearly Bladder cancer June 2018 low-grade recurrence Longstanding Last TURBT June 2018 with low-grade bladder cancer Longstanding smoking history Underwent BCG therapy Cystoscopy 02/07 NAD, 08/08 NAD, 08/09 NAD, 02/09 NAD, 08/10 NAD Cytology NAD Continue with bladder check every 6 months Urgency frequency Non responsive to oral medications Botox performed to bladder in August 2020, 08/08, 10/09 Good effect with Botox Lichen sclerosis Vaginal introitus Good response to steroid therapy and estradiol cream on alternating days Continue with [id number] 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 root impingement 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 Brother HTN (hypertension) Sister HTN (hypertension) Son Mental health disorder Daughter No problems noted. Social History Housing: House Patient Tobacco Use Status: Never used Tobacco e-Cigarette/Vaping Use: Never Used Advance Directives Date on File: 07/09/19 Current occupational status: employed Cognitive needs: No Hearing needs: No Vision needs: Yes Female Reproductive History Menstrual Age of Menarche: 10 Review of Systems Const Denies chills and Denies fever(s) Card Reports no additional complaints and Denies syncope Resp Denies cough GI Denies abdominal pain and Denies heartburn Reports as per HPI and Denies change in libido Neuro Denies syncope Psych Denies change in libido Endo Denies change in libido Physical Exam Const General: cooperative, healthy appearing, comfortable and no acute distress Orientation/consciousness: patient oriented x3 HEENT Face and sinus: Yes normal facial exam Mouth: moist mucous membranes Neck Neck: Yes normal visual inspection, Yes full ROM and Yes trachea midline Chest Chest palpation & inspection: normal inspection of the chest Resp Effort & Inspection: normal respiratory effort, able to speak in complete sentences and no respiratory distress GI Inspection: Yes normal to inspection Back/Spine/Pelvis Cervical Spine: normal cervical lordosis Thoracic/Lumbar Spine: thoracic and lumbar spine normal to inspection Skin General skin exam: no rashes or lesions noted Neuro General: patient oriented x3, gait normal, tone normal and moves all extremities Extrem General: Yes normal to inspection and Yes capillary refill normal Office Procedures Cystoscopy Consent Discussed risk and benefit or proposed procedure with the patient. Information consent for procedure given to the patient. Discussed technical aspects, risks, benefits and alternatives in full. Addressed all of the patient's questions and concerns regarding the procedure. The patient demonstrated knowledge and understanding. They wish to proceed with this procedure. Preparation The patient was prepped in the usual manner. A banana carrier was present and in the room. Genitalia was prepped with betadine solution in a sterile manner. Lidocaine Jelly 2% was placed into the urethra and 16Fr flexible Olympus cystoscope was inserted into the meatus after adequate lubrication. Procedure Meatus lichen sclerosis Urethra normal Bladder examination with retroflexion of cystoscope Bladder Orifices normal shape and position Trigone normal Bladder Capacity medium Trabeculations - Cellule Formation - Diverticulum Formation - Mucosal Erythema - Bladder Tumor prior scarring [id number] DISPOSABLE SCOPE URO-G FLEXIBLE SCOPE Procedure code (CPT) selection complete Office Meds lidocaine HCl 2 % mucosal jelly in applicator Performing Provider: Silverio Richards MD Performing Location: [facility] Administered by: Gerda Woods RN on 07/30/23 10:16 Dose Route Admin Location Dispensed Lot Number Expiration Date NDC Cardiology Nurse 10 mL intra-urethral 10 mL nitrofurantoin monohydrate/macrocrystals 100 mg capsule Performing Provider: Silverio Richards MD Performing Location: [facility] Administered by: Gerda Woods RN on 07/30/23 10:16 Dose Route Admin Location Dispensed Lot Number Expiration Date NDC Cardiology Nurse 100 mg PO 1 cap naproxen 500 mg tablet Performing Provider: Silverio Richards MD Performing Location: [facility] Administered by: Gerda Woods RN on 07/30/23 10:16 Dose Route Admin Location Dispensed Lot Number Expiration Date NDC Cardiology Nurse 500 mg PO 1 tab Results AMB Urinalysis, Automated UA Leukoctes 125 Nora/uL Last Edit by Siri Garza CMA on 07/30/23 10:18 UA Nitrite Negative Last Edit by Siri Garza CMA on 07/30/23 10:18 UA Urobilinogen 0.2 mg/dL Last Edit by Siri Garza CMA on 07/30/23 10:18 UA Protein 30 mg/dL Last Edit by Siri Garza CMA on 07/30/23 10:18 UA pH 6.0 Last Edit by Siri Garza CMA on 07/30/23 10:18 UA Blood 80 Papo/uL Last Edit by Siri Garza CMA on 07/30/23 10:18 UA Specific [place] 1.020 Last Edit by Siri Garza CMA on 07/30/23 10:18 UA Ketone Negative Last Edit by Siri Garza CMA on 07/30/23 10:18 UA Bilirubin 0 mg/dL Last Edit by Siri Garza CMA on 07/30/23 10:18 UA Glucose 0 mg/dL Last Edit by Siri Garza CMA on 07/30/23 10:18 Results Reviewed Results Reviewed: Laboratory Last Values Urine pH (Auto) 6.0 07/30/23 10:16 Specific [place] (Auto) 1.020 07/30/23 10:16 Urine Protein (Auto) 30 mg/dL 07/30/23 10:16 Glucose (UA)(Auto) 0 mg/dL 07/30/23 10:16 Urine Ketones (Auto) Negative 07/30/23 10:16 Urine Blood (Auto) 80 Papo/uL 07/30/23 10:16 Urine Nitrite (Auto) Negative 07/30/23 10:16 Urine Bilirubin (Auto) 0 mg/dL 07/30/23 10:16 Urine Urobilinogen (Auto) 0.2 mg/dL 07/30/23 10:16 Leukocyte Esterase (Auto) 125 Nora/uL 07/30/23 10:16 Assessment & Plan Assessment & Plan (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 No major barriers to patient understanding were identified. An opportunity to ask questions regarding the treatment plan was provided. All questions were answered. The patient expressed understanding and agreement with the above treatment plan. The patient is aware they should contact our office by phone for worsening of their current condition or the appearance of new urologic symptoms. Compliance is encouraged with any medications and followup testing that is ordered. It is a privilege to participate in the urologic care of your patient. If you have any questions or concerns regarding treatment for the above conditions, or other urologic issues, please do not hesitate to contact me. The office telephone contact is [phone]. This note is constructed using voice recognition software. While every effort has been made to ensure accuracy hiv prevention specialist errors may have been included. Yours sincerely, Dr Silverio Richards MD, [facility] - Urology Providers of Expert, Compassionate Care for the Genitourinary System Coding Level of Care Code Est Pt Level 3 (65794) Diagnoses Vulvar leukoplakia N90.4 Urgency of micturition R39.15 Bladder cancer C67.9 CPT Codes Cystoscopy - CPT: 68341-[id number] ([id number])
== END 2023-07-30 10:47 | disposition home or self-care (01) ==
PROVIDERS: PCP Internal Medicine; Visit Provider Urology
DX: N90.4 Leukoplakia of vulva (principal); R39.15 Urgency of urination; C67.9 Malignant neoplasm of bladder, unspecified; Z13.9 Encounter for screening, unspecified
CPT/HCPCS: 52000; 99213

== ENCOUNTER 2023-08-02 13:49 | Outpatient (REF) | payer OTHER, SELFPAY ==
[2023-08-02 14:46] LABS: MANUAL DIFF FLAG NO
[2023-08-02 15:06] LABS: Basophils Percent Auto 0.6 % (0-2); Eosinophils Absolute Auto 0.2 X10*3/uL (0.0-0.4); Eosinophils Percent Auto 2.3 % (0-4); Hematocrit 45.5 % (37.0-47.0); Hemoglobin 15.4 g/dl (12.0-16.0); Imm Gran Abs Auto 0.02 X10*3/uL (0.00-0.03); Imm Gran Pct Auto 0.3 % (0.0-0.4); Mean Corpuscular HGB Conc 33.8 g/dl (31.0-35.0); Mean Corpuscular Hemoglobin 30.9 pg (27.0-33.0); Mean Corpuscular Volume 91.4 fL (80.0-98.0); Mean Platelet Volume 11.4 fL (9.4-12.3); Monocytes Absolute Auto 0.5 X10*3/uL (0.1-1.2); Monocytes Percent Auto 7.6 % (2-11); Neutrophils Absolute Auto 3.9 x10*3/uL (2.0-8.3); Neutrophils Percent Auto 59.2 % (45-73); Platelet Count 236 X10*3/uL (160-400); Red Blood Count 4.98 X10*6/uL (4.20-5.50); Red Cell Distribution Width 12.3 % (11.0-16.0); White Blood Count 6.6 X10*3/uL (4.8-10.8)
[2023-08-02 15:43] LABS: Alanine Aminotransferase 23 U/L (0-31); Alkaline Phosphatase 88 U/L (39-117); Anion Gap 11 (12-20); Aspartate Amino Transferase 19 U/L (5-31); Bilirubin Total 0.6 mg/dL (0.0-1.0); Blood Urea Nitrogen 14 mg/dL (9-16); Calcium 9.3 mg/dL (8.4-10.2); Carbon Dioxide 24 mmol/L (22-29); Chloride 109 mmol/L (96-108); Estimated Glomerular Filt Rate > 60; Glucose Random 97 mg/dL (60-115); Potassium 3.8 mmol/L (3.3-5.1); Sodium 140 mmol/L (135-145); Total Protein 6.7 g/dL (6.5-8.0)
[2023-08-02 16:10] LABS: Folate 12.7 ng/mL (> or = 4.0); Vitamin B12 267 pg/mL (200-900)
[2023-08-02 16:18] LABS: Erythrocyte Sedimentation Rate 5 MM/HR (0-20)
== END 2023-08-02 13:50 | disposition home or self-care (01) ==
LOC: HO.LAB 13:49
PROVIDERS: Nurse Practitioner Family; PCP Internal Medicine; Visit Provider Nurse Practitioner
DX: I48.91 Unspecified atrial fibrillation (principal); R20.2 Paresthesia of skin; G62.89 Other specified polyneuropathies; G47.10 Hypersomnia, unspecified; Z95.818 Presence of other cardiac implants and grafts
CPT/HCPCS: 36415; 80053; 82607; 82746; 85025; 85652; 99212

== ENCOUNTER 2023-08-02 13:49 | Outpatient (AMB) | payer OTHER, SELFPAY ==
[2023-08-02 13:52] VITALS: BP 122/68; PULSE 78; BMI 27.1
--- NOTE | 2023-08-02 13:52 | A.OFFVIS_ITS ---
Intake Vital Signs 08/02/23 13:52 Height 5 ft 8 in Weight 178 lb 2.136 oz BMI 27.1 BP 122/68 Blood Pressure Location Lt brachial Position Sitting Pulse 78 Intake Visit Reasons: 9 day s/p ILR implant wound ck NS Intake Note: PT feels good no concerns PT is here for implant wound ck Allergies No Known Allergies [No Known Allergies*] Allergy (Verified 07/30/23 10:09) HPI HPI Comments History of Present Illness Details 63-year-old female presents today for a follow-up after ILR placement. She had a [employer] ILR placed on 07/27/[address] Hurley. She overall feels well, reports tiredness/sleeping much more and an occasional short palpitation. Denies any chest pains, shortness of breath,. dizziness, falls, bleeding. She denies fever, chills, odor, or drainage from the ILR site. [facility] Medical History (Updated 08/05/23 @ 08:19 by Brittany Robles NP) Implantable loop recorder present New onset atrial fibrillation Hx of atrial fibrillation, no current medication Lesion of skin of scalp Degenerative disc disease, lumbar Left foot drop Depression, major, in remission Menopause Vitamin D deficiency Lumbar disc herniation with radiculopathy Lumbar nerve root impingement 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 Brother HTN (hypertension) Sister HTN (hypertension) Son Mental health disorder Daughter No problems noted. Social History Housing: House Patient Tobacco Use Status: Never used Tobacco e-Cigarette/Vaping Use: Never Used Advance Directives Date on File: 07/09/19 Current occupational status: employed Cognitive needs: No Hearing needs: No Vision needs: Yes Female Reproductive History Menstrual Age of Menarche: 10 Review of Systems Const Denies weakness ENT Denies dizziness Card Denies chest pain, Denies chest pain with activity, Denies syncope, Denies rapid heart rate, Denies pedal edema, Denies edema, Denies leg edema, Denies lightheadedness, Denies palpitations, Denies dyspnea, Denies dyspnea on exertion and Denies orthopnea Resp Denies cough, Denies dyspnea and Denies dyspnea on exertion GI Denies hematochezia and Denies change in stool character Musc Denies abnormal gait, Denies muscle cramps, Denies muscle weakness, Denies numbness, Denies radiating pain into limb and Denies tingling Neuro Denies abnormal gait, Denies dizziness, Denies syncope, Denies numbness, Denies tingling and Denies weakness Endo Denies palpitations Physical Exam Vital Signs: Last Vital Signs Pulse 78 08/02/23 13:52 BP 122/68 08/02/23 13:52 BMI result Body Mass Index 27.1 Const General: healthy appearing and no acute distress Orientation/consciousness: patient oriented x3 HEENT Head: Yes normal to inspection Eyes General: appearance normal, both eyes and all related structures Neck Neck: Yes normal visual inspection Chest Chest palpation & inspection: normal inspection of the chest Resp Effort & Inspection: normal respiratory effort Auscultation: clear to auscultation bilaterally Cardio Jugular venous distension: no JVD Palpation: normal PMI Rate: regular rate Rhythm: regular rhythm Heart sounds: S1 normal heart sound present, S2 normal heart sound present, no click, no gallops, no murmurs and no rubs GI Inspection: Yes normal to inspection Palpation (GI): Soft to palpation Skin General skin exam: no rashes or lesions noted Neuro General: patient oriented x3 Extrem General: Yes normal to inspection Psych Appearance: grossly normal Assessment & Plan Assessment & Plan (1) New onset atrial fibrillation: Code(s): I48.91 - Unspecified atrial fibrillation (2) Hypersomnia: Code(s): G47.10 - Hypersomnia, unspecified (3) Implantable loop recorder present: Code(s): Z95.818 - Presence of other cardiac implants and grafts Plan Implantable loop recorder implanted 07/27/[address] Hurley. Precordial area site healing appropriately. Dressing removed. Area dry, clean, approximated well. No odor, erythema, tenderness or swelling noted. Two episodes of atrial fi brillation noted during sleeping hours. Will send for lab work. Will do ischemic work-up and sleep study. Rate control with metoprolol tartrate 25mg BID, and eliquis as long as Cr and Hgb/Hct are stable. Orders: Orders CA lexiscan stress w marjorie 08/02/23 I48.91 - Unspecified atrial fibrillation NM cardiolite stress test 08/02/23 I48.91 - Unspecified atrial fibrillation Complete Blood Count Auto Diff 08/02/23 I48.91 - Unspecified atrial fibrillation Basic Metabolic Panel 08/02/23 I48.91 - Unspecified atrial fibrillation RT home sleep study 08/02/23 G47.10 - Hypersomnia, unspecified Medications: New metoprolol tartrate 25 mg PO BID 30 days 60 tabs 3RF Coding Level of Care Code Est Pt Level 3 (74050) Diagnoses New onset atrial fibrillation I48.91 Hypersomnia G47.10 Implantable loop recorder present Z95.818
== END 2023-08-02 14:24 | disposition home or self-care (01) ==
PROVIDERS: PCP Internal Medicine; Visit Provider Nurse Practitioner
DX: I48.91 Unspecified atrial fibrillation (principal); G47.10 Hypersomnia, unspecified; Z95.818 Presence of other cardiac implants and grafts
CPT/HCPCS: 99213

== ENCOUNTER → 2023-08-07 16:00 | Outpatient (BNV) | payer OTHER, SELFPAY | PROVIDERS: PCP Internal Medicine; Visit Provider Internal Medicine | DX: G47.33 Obstructive sleep apnea (adult) (pediatric) (principal) | CPT/HCPCS: 95806 ==

== ENCOUNTER → 2023-08-07 16:01 | Outpatient (REF) | payer OTHER, SELFPAY | LOC: HO.SL 16:01 | PROVIDERS: PCP Internal Medicine; Visit Provider Nurse Practitioner | DX: G47.33 Obstructive sleep apnea (adult) (pediatric) (principal) | CPT/HCPCS: 95806 ==

== ENCOUNTER 2023-08-22 13:24 | Outpatient (REF) | payer OTHER, SELFPAY ==
--- NOTE | ~2023-08-22 | US_ITS ---
EXAMINATION: MM DIAGNOSTIC DIGITAL BREAST TOMOSYNTHESIS, RIGHT US BREAST LIMITED, RIGHT MAMMOGRAPHY: CLINICAL INFORMATION: Follow-up focal asymmetry right breast 12:00 axis, middle one third seen on screening exam. COMPARISON: Mammography: 07/24/2023, 07/09/2022, 07/06/2021, 06/03/2020, and dating back to 2017. TECHNIQUE: Digital breast tomosynthesis is performed in the following views: Full-field 3-D digital right mediolateral view, as well as 3-D spot compression right MLO x2, right CC x1 views were obtained. FINDINGS: There are scattered areas of fibroglandular density (ACR BI-RADS breast composition Category b). Diagnostic views demonstrate the focal asymmetry in question appears to completely dissipate on spot compression views and is no longer identifiable on the full-field ML view. In retrospect, there has been no significant change in the appearance of this focal asymmetry since 2019 examination suggesting benignity. The findings are most consistent with overlapping fibroglandular tissues/summation artifact. There is no persistent finding suspicious for malignancy. No new suspicious finding was evident in the right breast. ULTRASOUND: CLINICAL INFORMATION: Evaluate focal asymmetry 11-12 o'clock axis right breast. COMPARISON: None contributory. TECHNIQUE: Targeted sonographic evaluation was performed using a high frequency linear transducer. Right breast was scanned from 10:00 to 2:00. Selected archived documentation. FINDINGS: RIGHT BREAST: There is a mixture of fatty and fibroglandular tissue. No suspicious mass is seen. There is no pathologic acoustic shadowing. No cystic abnormality. No sonographic correlate to the focal asymmetry is identified within the 11:00 to 12:00 axis, middle one third. US/US breast RT limited mamm only IMPRESSION: There are no findings suspicious for malignancy in the right breast. No mammographic or sonographic correlate to the focal asymmetry in the 12:00 axis right breast. Findings are consistent with summation artifact of normal overlapping breast tissues. Recommend the patient return to routine annual screening. OVERALL ASSESSMENT: Mammography: BI-RADS 1 - Negative Ultrasound: BI-RADS 1 - Negative RECOMMENDATION: 1 year F/U This patient's information was entered into a reminder system with a target due date for their next mammogram.
== END 2023-08-22 13:25 | disposition home or self-care (01) ==
LOC: HO.MAMMO 13:24
PROVIDERS: PCP Internal Medicine; Visit Provider Internal Medicine
DX: N64.89 Other specified disorders of breast (principal)
CPT/HCPCS: 76642; 77061; 77065

== ENCOUNTER → 2023-08-22 13:30 | Outpatient (BNV) | payer OTHER, SELFPAY | PROVIDERS: PCP Internal Medicine; Visit Provider Radiology Diagnostic Radiology | DX: R92.8 Other abnormal and inconclusive findings on diagnostic imaging of breast (principal) | CPT/HCPCS: 76642; 77065; G0279 ==

== ENCOUNTER → 2023-08-25 23:59 | Outpatient (BNV) | payer OTHER, SELFPAY ==
--- NOTE | 2023-09-05 15:56 | A.OFFVIS_ITS ---
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 Brother HTN (hypertension) Sister HTN (hypertension) Son Mental health disorder Daughter No problems noted. Social History Housing: House Patient Tobacco Use Status: Never used Tobacco e-Cigarette/Vaping Use: Never Used Advance Directives Date on File: 07/09/19 Current occupational status: employed Cognitive needs: No Hearing needs: No Vision needs: Yes Female Reproductive History Menstrual Age of Menarche: 10 Office Procedures Cardiac Device Check Cardiac Device Check Details: Remote implantable loop recorder report generated 08/25/2023. I was requested to read this report today. Patient noted to have 4 episodes of atrial fibrillation with total burden of 0.8%. Patient was started on oral anticoagulation therapy. [id number] Cardiac Interrogation, subcut cardiac rhythm monitor Procedure code (CPT) selection complete Assessment & Plan Assessment & Plan (1) Implantable loop recorder present: Code(s): Z95.818 - Presence of other cardiac implants and grafts Category: Medical Plan: See above
== END ==
PROVIDERS: PCP Internal Medicine; Visit Provider Internal Medicine Cardiovascular Disease
DX: I48.91 Unspecified atrial fibrillation (principal); Z95.818 Presence of other cardiac implants and grafts
CPT/HCPCS: 93298

== ENCOUNTER → 2023-08-28 08:27 | Outpatient (REF) | payer OTHER, SELFPAY ==
--- NOTE | ~2023-08-28 | NM_ITS ---
Lexiscan Myocardial perfusion study Indication: Atrial fibrillation, assess for ischemia Technique: The patient was brought in for a Lexiscan perfusion study on 08/28/2023 and was injected 0.4 mg of Lexiscan intravenously. Within a minute of this injection 35 mCi of sestamibi was given intravenously. Images were obtained using the SPECT gamma camera interlaced with the gating device. Images were obtained in supine position. Resting perfusion study was performed on 08/30/2023. Patient was administered 35 mCi of sestamibi intravenously at rest. Images were then obtained in supine position. Images were processed with the software and compared side to side in short axis, horizontal long axis and vertical long axis views. Total DLP 108mGy-cm. Findings: Raw acquisition reviewed. The stress perfusion study showed mildly diminished tracer uptake in the distal part of anterior wall and adjacent apex. There is improvement with CT attenuation correction suggestive of soft tissue attenuation artifact. The gated study shows normal LV systolic function with calculated LVEF of 58%. LV cavity is normal in size. The gated study shows normal wall thickening and contraction of segments. Resting study shows no significant perfusion abnormality. Gating at rest reveals normal wall motion with ejection fraction at 54%. The findings are consistent with mild reversible apical defect, probably from soft tissue attenuation artifact. NM/NM cardiolite stress test Impression: 1. Myocardial perfusion imaging study shows no clear evidence of any ischemia or infarction. Probably normal myocardial perfusion. 2. Gated LVEF is 58% during stress and 54% during rest. 3. Transient ischemic dilatation not present. EKG component of the test reported separately.
--- NOTE | 2023-08-28 08:31 | CA_ITS ---
Acquisition Time: 2023-08-28 08:44:06 Total Exercise Time: 00:02:00 Test Indications: Palpitations AFIB Medications: ELIQUIS ATORVASTATIN CITALOPRAM MAGNESIUM METOPROLOL PROGESTERONE Protocol: LEXISCAN Max HR: 095 BPM 61% of Pred: 155 BPM Max BP: 162/088 mmHG Max Work Load: 1.6 METS Pharmacological stress test with Lexiscan injection while walking slowly on the treadmill, with mild SOB, no chest discomfort, without arrhythmias, with normotensive response to injection, with inverted T waves V4-V6. Aminophylline 75mg IVP given to reverse Lexiscan. Nuclear images pending. Test reviewed with Dr. Hurley Referred By: Brittany Robles Overread By: Brittany Robles
== END ==
LOC: HO.CARD 08:27
PROVIDERS: PCP Internal Medicine; Visit Provider Nurse Practitioner
DX: I48.91 Unspecified atrial fibrillation (principal)
CPT/HCPCS: 78452; 93017; A9500; J0280; J2785

== ENCOUNTER → 2023-08-28 08:31 | Outpatient (BNV) | payer OTHER, SELFPAY | PROVIDERS: PCP Internal Medicine; Visit Provider Nurse Practitioner | DX: R06.02 Shortness of breath (principal) | CPT/HCPCS: 78452; 93016; 93018 ==

== ENCOUNTER 2023-09-11 08:58 | Outpatient (AMB) | payer OTHER, SELFPAY ==
--- NOTE | 2023-09-11 09:01 | MHC.OFFVIS ---
Vital Signs 09/11/23 09:07 Height 5 ft 8 in Weight 180 lb 4 oz BMI 27.4 BP 122/64 Blood Pressure Location Lt brachial Position Sitting Pulse 68 Pulse Source Pulse Oximeter Pulse Oximetry (%) 96 Oxygen Delivery Method Room Air Intake Visit Reasons: 4 mo f/u - Foot drop/Left foot - Confirmed Intake Note: Patient presents for 4 months f/u. Allergies No Known Allergies [No Known Allergies*] Allergy (Verified 09/11/23 09:05) HPI Comments Details: 63 y/o female patient presents with her son for follow up of left foot drop. EMG/NCS of left lower extremity result reviewed. 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 Pt finished 12 session of physical therapy for foot drop. Pt reports left foot drop has improved a lot, foot drop happens much less, she can lift her left foot and walk without brace. She continues to have bilateral foot numbness and tingling, L>R. Recent lab result reviewed. TSH, vitamin B12, and vitamin D level was WNL. Pt states that her cholesterol level was high and her statin dosage was increased. Denies back pain. Pt had a repeat lumbar MRI result (Apr, 2023) reviewed. There is no evidence of acute fracture or traumatic subluxation of lumbar spine. Grade 1 anterolisthesis of L4 and L5 is likely degenerative in nature. Multilevel degerative disc disease most pronounced at L4-L5. 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 Brother HTN (hypertension) Sister HTN (hypertension) Son Mental health disorder Daughter No problems noted. Social History Housing: House Patient Tobacco Use Status: Never used Tobacco e-Cigarette/Vaping Use: Never Used Advance Directives Date on File: 07/09/19 Current occupational status: employed Cognitive needs: No Hearing needs: No Vision needs: Yes Female Reproductive History Menstrual Age of Menarche: 10 Review of Systems Const All systems reviewed & are unremarkable except as noted in HPI and below Physical Exam Vital Signs: Last Vital Signs Pulse 68 09/11/23 09:07 BP 122/64 09/11/23 09:07 Pulse Ox 96 09/11/23 09:07 Oxygen Delivery Method Room Air 09/11/23 09:07 BMI result Body Mass Index 27.4 Const General: cooperative Nutritional Appearance: overweight Orientation/consciousness: patient oriented x3 Neck Neck: Yes full ROM and Yes supple Resp Effort & Inspection: normal respiratory effort and able to speak in complete sentences Neuro Other: difficulty lifting up the left foot. General: patient oriented x3 and moves all extremities Cranial nerves: Yes CN's II-XII intact bilaterally Cognition (Neuro): normal cognition Motor exam (neuro): 5/5 motor strength present throughout (Left lower extremity strength 4/5), Pronator motor function not present and no tremor noted Deep tendon reflexes (DTR's): Left biceps reflex intensity grade: 2+, Right brachioradialis reflex intensity grade: 2+, Left brachioradialis reflex intensity grade: 3+ and Right patellar reflex intensity grade: 3+ Extrem General: Yes muscle atrophy (left lower extremity) Psych Appearance: grossly normal Mental Status: mental status grossly normal Affect: normal affect Attitude: cooperative Assessment & Plan Assessment & Plan (1) Peripheral demyelinating neuropathy: Code(s): G62.89 - Other specified polyneuropathies Category: Medical (2) Left foot drop: Code(s): M21.372 - Foot drop, left foot Category: Medical Plan Continue to practice home PT. Advised patient to try Nirvive neurohealth supplement for neuropathy. Manage cholestrol level, BP and BS. Will check ESR. Orders: Orders Erythrocyte Sedimentation Rate Today G62.89 - Other specified polyneuropathies Coding Level of Care Code Est Pt Level 4 (54376) Diagnoses Peripheral demyelinating neuropathy G62.89 Left foot drop M21.372
[2023-09-11 09:07] VITALS: BP 122/64; PULSE 68; O2SAT 96; BMI 27.4
== END 2023-09-11 09:26 | disposition home or self-care (01) ==
PROVIDERS: PCP Internal Medicine; Visit Provider Nurse Practitioner Family
DX: G62.89 Other specified polyneuropathies (principal); M21.372 Foot drop, left foot
CPT/HCPCS: 99214

== ENCOUNTER → 2023-09-11 08:58 | Outpatient (BNVA) | payer OTHER, SELFPAY | PROVIDERS: PCP Internal Medicine; Visit Provider Nurse Practitioner Family | DX: G62.89 Other specified polyneuropathies (principal); M21.372 Foot drop, left foot | CPT/HCPCS: 99212 ==

== ENCOUNTER 2023-09-19 10:32 | Outpatient (REF) | payer MEDICARE, SELFPAY ==
[2023-09-19 11:20] LABS: Estimated Average Glucose 140 mg/dL; Hemoglobin A1c % 6.5 % (<6.0)
[2023-09-19 11:53] LABS: Erythrocyte Sedimentation Rate 7 MM/HR (0-20)
[2023-09-19 12:00] LABS: Vitamin D 25-OH Total 58.6 ng/mL (>30)
[2023-09-19 12:06] LABS: Anion Gap 12 (12-20)
[2023-09-19 12:11] LABS: Alanine Aminotransferase 26 U/L (0-31); Aspartate Amino Transferase 21 U/L (5-31); Blood Urea Nitrogen 11 mg/dL (9-16); Calcium 9.8 mg/dL (8.4-10.2); Carbon Dioxide 27 mmol/L (22-29); Chloride 106 mmol/L (96-108); Cholesterol 181 mg/dL (<200); Estimated Glomerular Filt Rate > 60; Glucose Fasting 107 mg/dL (60-99); Glucose Random 107 mg/dL (60-115); HDL Cholesterol 43 mg/dL (>40); LDL Cholesterol Calculated 107 mg/dL (<100); Potassium 3.9 mmol/L (3.3-5.1); Sodium 141 mmol/L (135-145); Triglycerides 158 mg/dL (<150)
== END 2023-09-19 10:33 | disposition home or self-care (01) ==
LOC: HO.LAB 10:32
PROVIDERS: Nurse Practitioner Family; PCP Internal Medicine; Visit Provider Internal Medicine
DX: R73.01 Impaired fasting glucose (principal); E55.9 Vitamin D deficiency, unspecified; E78.00 Pure hypercholesterolemia, unspecified; I48.91 Unspecified atrial fibrillation; G62.89 Other specified polyneuropathies; Z78.0 Asymptomatic menopausal state
CPT/HCPCS: 36415; 80048; 80061; 82306; 82550; 82947; 83036; 84450; 84460; 85652

== ENCOUNTER → 2023-09-24 23:59 | Outpatient (BNV) | payer OTHER, SELFPAY ==
--- NOTE | 2023-10-01 15:53 | MHC.OFFVIS ---
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 Brother HTN (hypertension) Sister HTN (hypertension) Son Mental health disorder Daughter No problems noted. Social History Housing: House Patient Tobacco Use Status: Never used Tobacco e-Cigarette/Vaping Use: Never Used Advance Directives Date on File: 07/09/19 Current occupational status: employed Cognitive needs: No Hearing needs: No Vision needs: Yes Female Reproductive History Menstrual Age of Menarche: 10 Office Procedures Cardiac Device Check Cardiac Device Check Details: Remote implantable loop recorder report generated 09/24/2023. Two episodes of atrial fibrillation noted lasting 2 hours and 28 and 6 hour and 42 minutes respectively. R-wave sensing is adequate. Battery status is adequate [id number] Cardiac Interrogation, subcut cardiac rhythm monitor Procedure code (CPT) selection complete Assessment & Plan Assessment & Plan (1) Implantable loop recorder present: Comment: Placed 07/27/[address] Hurley Code(s): Z95.818 - Presence of other cardiac implants and grafts Category: Medical Plan: See above Coding Level of Care Code Procedure Only Diagnoses Implantable loop recorder present Z95.818 CPT Codes Cardiac Device Check - Cardiac Device 16: [id number] Cardiac Interrogation, subcut cardiac rhythm monitor ([id number])
== END ==
PROVIDERS: PCP Internal Medicine; Visit Provider Internal Medicine Cardiovascular Disease
DX: I48.91 Unspecified atrial fibrillation (principal); Z95.818 Presence of other cardiac implants and grafts
CPT/HCPCS: 93298

== ENCOUNTER 2023-10-01 14:03 | Outpatient (AMB) | payer OTHER, SELFPAY ==
[2023-10-01 14:08] VITALS: BP 120/62; PULSE 86; O2SAT 98; BMI 26.8
--- NOTE | 2023-10-01 14:08 | MHC.OFFVIS ---
Vital Signs 10/01/23 14:08 Height 5 ft 8 in Weight 176 lb 5.917 oz BMI 26.8 BP 120/62 Blood Pressure Location Lt brachial Position Sitting Pulse 86 Pulse Source Pulse Oximeter Pulse Oximetry (%) 98 Oxygen Delivery Method Room Air Intake Visit Reasons: 2 month follow up Allergies No Known Allergies [No Known Allergies*] Allergy (Verified 09/11/23 09:05) Medication List - Last Reconciled 10/01/23 by Brittany Robles NP apixaban (Eliquis) 5 mg PO BID 30 days atorvastatin 40 mg PO DAILY cholecalciferol (vitamin D3) 1,250 mcg PO QWEEK 3 months citalopram 40 mg PO DAILY clobetasol 0.05% 1 appl topical DAILY 30 weeks estradiol 0.01%(0.1mg/gram) pea-sized to urethra 2 times a week; alternate with clobetasol cream 30 days magnesium gluconate 250 mg PO BID metoprolol tartrate 50 mg PO BID 30 days [multivitamin 1 tab PO DAILY] progesterone micronized 100 mg PO BEDTIME 30 days HPI Comments Details: 63-year-old female presents today for a follow-up. She had a [employer]tr[employer] ILR placed on 07/27/[address] Hurley. She overall feels well, reports an occasional short palpitation mostly at night. But has decreased since starting the metoprolol. Denies any chest pains, shortness of breath,. dizziness, falls, bleeding. 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 Brother HTN (hypertension) Sister HTN (hypertension) Son Mental health disorder Daughter No problems noted. Social History Housing: House Patient Tobacco Use Status: Never used Tobacco e-Cigarette/Vaping Use: Never Used Advance Directives Date on File: 07/09/19 Current occupational status: employed Cognitive needs: No Hearing needs: No Vision needs: Yes Female Reproductive History Menstrual Age of Menarche: 10 Review of Systems Const Denies weakness ENT Denies dizziness Card Denies chest pain, Denies chest pain with activity, Denies syncope, Denies rapid heart rate, Denies pedal edema, Denies edema, Denies leg edema, Denies lightheadedness, Denies palpitations, Denies dyspnea, Denies dyspnea on exertion and Denies orthopnea Resp Denies cough, Denies dyspnea and Denies dyspnea on exertion GI Denies hematochezia and Denies change in stool character Musc Denies abnormal gait, Denies muscle cramps, Denies muscle weakness, Denies numbness, Denies radiating pain into limb and Denies tingling Neuro Denies abnormal gait, Denies dizziness, Denies syncope, Denies numbness, Denies tingling and Denies weakness Endo Denies palpitations Physical Exam Vital Signs: Last Vital Signs Pulse 86 10/01/23 14:08 BP 120/62 10/01/23 14:08 Pulse Ox 98 10/01/23 14:08 Oxygen Delivery Method Room Air 10/01/23 14:08 BMI result Body Mass Index 26.8 Const General: healthy appearing and no acute distress Orientation/consciousness: patient oriented x3 HEENT Head: Yes normal to inspection Eyes General: appearance normal, both eyes and all related structures Neck Neck: Yes normal visual inspection Chest Chest palpation & inspection: normal inspection of the chest Resp Effort & Inspection: normal respiratory effort Auscultation: clear to auscultation bilaterally Cardio Jugular venous distension: no JVD Palpation: normal PMI Rate: regular rate Rhythm: regular rhythm Heart sounds: S1 normal heart sound present, S2 normal heart sound present, no click, no gallops, no murmurs and no rubs GI Inspection: Yes normal to inspection Palpation (GI): Soft to palpation Skin General skin exam: no rashes or lesions noted Neuro General: patient oriented x3 Extrem General: Yes normal to inspection Psych Appearance: grossly normal Assessment & Plan Assessment & Plan (1) Implantable loop recorder present: Comment: Placed 07/27/[address] Hurley Code(s): Z95.818 - Presence of other cardiac implants and grafts Category: Medical (2) New onset atrial fibrillation: Code(s): I48.91 - Unspecified atrial fibrillation Category: Medical Plan ILR shows fews fast rates up to 180. Patient reports she feels these intermittently and mostly at night. But a reduction since starting the metoprolol. Will have her increase to 50mg BID. She is on eliquis 5mg BID without any signs of bleeding. Medications: Changed From metoprolol tartrate 25 mg PO BID 30 days 60 tabs 3RF To metoprolol tartrate 50 mg PO BID 30 days 60 tabs 3RF Coding Level of Care Code Est Pt Level 3 (36433) Diagnoses Implantable loop recorder present Z95.818 New onset atrial fibrillation I48.91
== END 2023-10-01 14:30 | disposition home or self-care (01) ==
PROVIDERS: PCP Internal Medicine; Visit Provider Nurse Practitioner
DX: Z95.818 Presence of other cardiac implants and grafts (principal); I48.91 Unspecified atrial fibrillation
CPT/HCPCS: 99213

== ENCOUNTER → 2023-10-01 14:03 | Outpatient (BNVA) | payer OTHER, SELFPAY | PROVIDERS: PCP Internal Medicine; Visit Provider Nurse Practitioner | DX: I48.91 Unspecified atrial fibrillation (principal); Z79.01 Long term (current) use of anticoagulants; Z79.899 Other long term (current) drug therapy; Z95.818 Presence of other cardiac implants and grafts | CPT/HCPCS: 99212 ==

== ENCOUNTER 2023-10-24 10:18 | Outpatient (AMB) | payer OTHER, SELFPAY ==
--- NOTE | 2023-10-24 10:24 | A.OFFPC_ITS ---
Vital Signs 10/24/23 10:28 Height 5 ft 8 in Weight 178 lb BMI 27.1 BP 112/78 Blood Pressure Location Rt brachial Position Sitting Pulse 55 Pulse Source Pulse Oximeter Pulse Oximetry (%) 97 Oxygen Delivery Method Room Air Intake Visit Reasons: PE Intake Note: pt here for annual PE. Mammogram 07/24/23. Bone density 07/17/22. Colonoscopy due 2024 Allergies No Known Allergies [No Known Allergies*] Allergy (Verified 03/16/24 00:27) Medication List - Last Reconciled 10/24/23 by Keesha Agustin MD apixaban (Eliquis) 5 mg PO BID 30 days atorvastatin 40 mg PO DAILY cholecalciferol (vitamin D3) 50 mcg PO DAILY citalopram 40 mg PO DAILY clobetasol 0.05% 1 appl topical DAILY 30 weeks estradiol 0.01%(0.1mg/gram) pea-sized to urethra 2 times a week; alternate with clobetasol cream 30 days magnesium gluconate 250 mg PO BID metoprolol tartrate 50 mg PO BID 30 days [multivitamin 1 tab PO DAILY] progesterone micronized 100 mg PO BEDTIME 30 days Tobacco use date assessed: 10/24/23 Fall risk assessment: No Falls in past year Last assessed Fall Risk: 10/24/23 Dental Screening Dental Screen Date: 10/24/23 Did you have a dental visit in the last 12 months?: No Did you have a dental problem in the last 6 months where you did not have access to dental care?: No Was dental information given to patient?: No HPI PE HPI Details 64-year-old lady with past medical histo ry of new onset atrial fibrillation currently on apixaban, infiltrative cardiomyopathy, peripheral demyelinating neuropathy, dyslipidemia, degenerative disc disease lumbar, with radiculopathy, history of bladder cancer, depression currently in remission, here today her physical exam. She is up-to-date with her screening mammogram, last done 07/24/2023 with benign findings. Last bone density scan was done last year showed beginning bone thinning in her left femoral neck and left thigh but normal in her lumbar spine. She is up-to-date with her screening colonoscopy due again next year. 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 Brother HTN (hypertension) Sister HTN (hypertension) Son Mental health disorder Daughter No problems noted. Social History Housing: House Patient Tobacco Use Status: Never used Tobacco e-Cigarette/Vaping Use: Never Used Advance Directives Date on File: 07/09/19 service: No Current occupational status: employed and retired Cognitive needs: No Hearing needs: No Vision needs: Yes Female Reproductive History Menstrual Age of Menarche: 10 Questionnaire PHQ-9 Over the last 2 weeks, how often have you been bothered by any of the following problems? 1. Little interest or pleasure in doing things: not at all 2. Feeling down, depressed, or hopeless: not at all 3. Trouble falling or staying asleep, or sleeping too much: not at all 4. Feeling tired or having little energy: not at all 5. Poor appetite or overeating: not at all 6. Feeling bad about yourself - or that you are a failure or have let yourself or your family down: not at all 7. Trouble concentrating on things, such as reading the newspaper or watching television: not at all 8. Moving or speaking so slowly that other people could have noticed. Or the opposite - being so fidgety or restless that you have been moving around a lot more than usual: not at all 9. Thoughts that you would be better off or of hurting yourself in some way: not at all Total score: 0 Depression Screening Interpretation: Negative Depression Screening Done: Yes 92320 - PHQ-9 Billing: Yes Source: Developed by Drs. Joe Randolph, Feliberto Eastman and colleagues, with an educational tiffany from [employer]. Thrive Questionnaire Date Thrive assessed: 10/24/23 I am a: Patient What is your living situation today?: I have a steady place to live Within the past 12 months, did the food you bought not last and you didn't have the money to get more?: Never true Within the past 12 months, did you worry whether your food would run out before you got money to buy more?: Never true Do you have trouble paying for medicines?: No Do you have trouble getting transportation to medical appointments?: No Do you have trouble paying your heating and electricity bill?: No Do you have trouble taking care of your child, family member or friend?: No Do you have trouble with day-to-day activities such as bathing, preparing meals, shopping, managing finances, etc.?: No Are you currently unemployed and looking for a job?: No Are you interested in more education?: No Currently or been in a relationship where the following occur: no concerns reported THRIVE Score: 0 AUDIT C Alcohol Use Questionnaire (AUDIT-C) 1. How often do you have a drink containing alcohol?: Never Total Score: 0 Score Reviewed/Action Taken: No JEREMY-7 AMB Questionnaire JEREMY-7 Date JEREMY - 7 assessed: 10/24/23 Feeling nervous, anxious, or on edge: 0 = Not at all Not being able to stop or control worryin = Not at all Worrying too much about different things: 0 = Not at all Trouble relaxin = Not at all Being so restless that it is hard to sit still: 0 = Not at all Becoming easily annoyed or irritable: 0 = Not at all Feeling afraid as if something awful might happen: 0 = Not at all Total JEREMY-7 score (0-4 normal; 5-9 mild; 10-14 moderate; 15-21 severe): 0 Source: Developed by Shayna Joshua Kurt Kroenke and colleagues, with an educational tiffany from [employer]. JEREMY-7 Assessment Billing JEREMY-7 Assessment Tool: JEREMY-7 Assessment 43275 Review of Systems Const Denies chills and Denies fever(s) Eyes Reports requires corrective lenses ENT Reports no additional complaints Card Reports no additional complaints and Denies syncope Resp Denies cough GI Denies abdominal pain and Denies heartburn Reports as per HPI Musc Reports no additional complaints Skin/Breast Reports as per HPI Neuro Details: left foot drop present Denies syncope Psych Reports no additional complaints Endo Reports no additional complaints Leonidas/Lymph Reports no additional complaints Aller/Immun Reports no additional complaints Physical exam (Primary Care) Vital Signs: Last Vital Signs Pulse 55 10/24/23 10:28 BP 112/78 10/24/23 10:28 Pulse Ox 97 10/24/23 10:28 Oxygen Delivery Method Room Air 10/24/23 10:28 BMI result Body Mass Index 27.1 Tobacco/Smoking Status: Tobacco use Status Tobacco use date assessed 10/24/23 10/24/23 10:32 Patient Tobacco Use Status Never used Tobacco 10/24/23 10:24 e-Cigarette/Vaping Use Never Used 10/24/23 10:24 PHQ-9: PHQ-9 Score PHQ-9: Total score 0 10/24/23 11:40 Depression Screening Interpretation: Negative Thrive Assessment: Date of Thrive Assessment Date Thrive assessed 10/24/23 10/24/23 10:49 Currently or been in a relationship where the following occur: no concerns reported Const General: cooperative, comfortable and no acute distress Orientation/consciousness: patient oriented x3 HENMT Head: Yes normocephalic Ears: hearing grossly normal bilaterally and external ears normal General nose exam: Normal external nose present Face and sinus: Yes face symmetric Mouth: Normal oral and palatal mucosa present, oropharynx normal and moist mucous membranes Eyes General: appearance normal, both eyes and all related structures Neck Neck: Yes full ROM, Yes no lymphadenopathy and Yes supple Chest Breast/axilla palpation: normal palpation of the breasts Resp Effort & Inspection: normal respiratory effort and able to speak in complete sentences Auscultation: clear to auscultation bilaterally Cardio Rate: regular rate Rhythm: regular rhythm Heart sounds: S1 normal heart sound present and S2 normal heart sound present GI Inspection: Yes normal to inspection Palpation (GI): Soft to palpation, nontender and no masses Auscultation: normal bowel sounds Back/Spine/Pelvis Back: No back tenderness Neuro Other: Positive footdrop on the left General: patient oriented x3, tone normal, moves all extremities and Normal light touch and pain sensation Cognition (Neuro): normal cognition Motor exam (neuro): 5/5 motor strength present throughout Extrem General: Yes normal to inspection, Yes full ROM, Yes no joint enlargement and Yes no calf tenderness Psych Appearance: grossly normal Mental Status: mental status grossly normal Speech and movement: Normal speech and movement present Affect: normal affect Attitude: cooperative Thought process: Normal thought process present Thought content: Normal thought content present Results Reviewed Results Reviewed: Laboratory Tests 09/19/23 10:45 Estimat Average Glucose 140 Hemoglobin A1c % 6.5 H Name: Sweetie Aponte Age/Sex: 63/F : 1960 Unit#: [id number] Attend Dr: Keesha Agustin MD Re09/19/23 Status: DEP REF Location: [facility] Disch: SPEC : [id number] MICK: 09/19/23 STATUS: COMP REQ : [id number] RECD: 09/19/[address]: Keesha Agustin MD COMP: 09/19/23 ENTERED: 09/19/[address]: 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 Chronic Kidney Disease: Estimated GFR < 60 mL/min/1.73m2 Severe Kidney Disease: Estimated GFR < 15 mL/min/1.73m2 Glucose, Random 107 60-115 mg/dL FBS 107 H 60-99 mg/dL A fasting glucose from 100-125 mg/dl is considered impaired (pre-diabetes). CA 9.8 8.4-10.2 mg/dL AST (GOT) 21 5-31 U/L ALT (GPT) 26 0-31 U/L CK Total 80 26-140 U/L Triglyceride 158 H <150 mg/dL Desirable Triglyceride: less than 150 mg/dL Borderline High Triglyceride 150-199 mg/dL High Triglyceride: 200-499 mg/dL Very High Triglyceride: greater than or equal to 5OO mg/dL Cholesterol 181 <200 mg/dL Desirable Cholesterol: less than 200 mg/dL Borderline High Cholesterol: 200-239 mg/dL High Cholesterol: greater than 239 mg/dL LDL Calculated 107 H <100 mg/dL Desirable LDL: less than 100 mg/dL Near Optimal/Above Optimal LDL: 110-129 mg/dL Borderline High LDL: 130-159 mg/dL High LDL: 160-189 mg/dL Very High LDL: greater than or equal to 190 mg/dL HDL 43 >40 mg/dL Desirable HDL: greater than 40 mg/dL Note: This HDL assay may give artificially low results in patients with liver disease. 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
[2023-10-24 10:28] VITALS: BP 112/78; PULSE 55; O2SAT 97; BMI 27.1
== END 2023-10-24 11:40 | disposition home or self-care (01) ==
PROVIDERS: PCP Internal Medicine; Visit Provider Internal Medicine
DX: Z00.01 Encounter for general adult medical examination with abnormal findings (principal); E78.00 Pure hypercholesterolemia, unspecified; R73.01 Impaired fasting glucose; Z85.51 Personal history of malignant neoplasm of bladder; R23.2 Flushing; F32.5 Major depressive disorder, single episode, in full remission; N90.4 Leukoplakia of vulva; I48.91 Unspecified atrial fibrillation; I42.8 Other cardiomyopathies; G62.89 Other specified polyneuropathies
CPT/HCPCS: 99499

== ENCOUNTER → 2023-10-24 23:59 | Outpatient (BNV) | payer OTHER, SELFPAY ==
--- NOTE | 2024-01-10 15:12 | MHC.OFFVIS ---
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 Brother HTN (hypertension) Sister HTN (hypertension) Son Mental health disorder Daughter No problems noted. Social History Housing: House Patient Tobacco Use Status: Never used Tobacco e-Cigarette/Vaping Use: Never Used Advance Directives Date on File: 07/09/19 service: No Current occupational status: employed and retired Cognitive needs: No Hearing needs: No Vision needs: Yes Female Reproductive History Menstrual Age of Menarche: 10 Office Procedures Cardiac Device Check Cardiac Device Check Details: Remote implantable loop recorder report generated 10/24/2023. I was requested to read this study on 01/09/2024. Noted multiple episodes of atrial fibrillation with total burden of 1.6%. Reviewing the chart patient has been started on Eliquis therapy. [id number] Cardiac Interrogation, subcut cardiac rhythm monitor Procedure code (CPT) selection complete Assessment & Plan Assessment & Plan (1) Implantable loop recorder present: Comment: Placed 07/27/[address] Hurley Code(s): Z95.818 - Presence of other cardiac implants and grafts Category: Medical Plan: See above Coding Level of Care Code Procedure Only Diagnoses Implantable loop recorder present Z95.818 CPT Codes Cardiac Device Check - Cardiac Device 16: [id number] Cardiac Interrogation, subcut cardiac rhythm monitor ([id number])
== END ==
PROVIDERS: PCP Internal Medicine; Visit Provider Internal Medicine Cardiovascular Disease
DX: I48.91 Unspecified atrial fibrillation (principal); Z95.818 Presence of other cardiac implants and grafts
CPT/HCPCS: 93298

== ENCOUNTER 2023-12-09 10:15 | Outpatient (REF) | payer OTHER, SELFPAY ==
[2023-12-11 15:58] LABS: HPV mRNA E6/E7 Not Detected (Not Detected)
== END 2023-12-09 10:16 | disposition home or self-care (01) ==
LOC: HO.LNP 10:15
PROVIDERS: PCP Internal Medicine; Visit Provider Obstetrics & Gynecology
DX: Z01.419 Encounter for gynecological examination (general) (routine) without abnormal findings (principal); Z11.51 Encounter for screening for human papillomavirus (HPV)
CPT/HCPCS: 87624; 88175

== ENCOUNTER 2023-12-09 10:15 | Outpatient (AMB) | payer OTHER, SELFPAY ==
--- NOTE | 2023-12-09 10:22 | A.OFFVIS_ITS ---
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 No complaints. 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 Brother HTN (hypertension) Sister HTN (hypertension) Son Mental health disorder Daughter No problems noted. Social History Housing: House Patient Tobacco Use Status: Never used Tobacco e-Cigarette/Vaping Use: Never Used Advance Directives Date on File: 07/09/19 service: No Current occupational status: employed and retired Cognitive needs: No Hearing needs: No Vision needs: Yes Female Reproductive History Menstrual Age of Menarche: 10 Date of last pap smear: 11/06/18 Date of Mammogram: 08/22/23 Review of Systems Const All systems reviewed & are unremarkable except as noted in HPI and below Card Reports as per HPI Resp Reports as per HPI GI Reports as per HPI and Reports no additional complaints Reports as per HPI Physical Exam Vital Signs: Last Vital Signs BP 120/68 12/09/23 10:23 BMI result Body Mass Index 26.8 Const General: cooperative, healthy appearing and comfortable Chest Chest palpation & inspection: normal inspection of the chest and normal palpation of entire chest wall Breast/axilla inspection: normal inspection of the breasts and normal inspection of the axillae Breast/axilla palpation: normal palpation of the breasts, normal palpation of the axillae and no axillary lymphadenopathy Resp Effort & Inspection: normal respiratory effort Auscultation: clear to auscultation bilaterally Percussion: percussion normal Cardio Palpation: normal PMI Rate: regular rate Rhythm: regular rhythm Heart sounds: no murmurs and no rubs Peripheral pulses: Peripheral pulses 2+ throughout GI Inspection: Yes normal to inspection Palpation (GI): Soft to palpation, nontender, no guarding, not rigid and No hepatosplenomegaly present Percussion: Yes normal to percussion Auscultation: normal bowel sounds Rectal Exam - Female: deferred General: Yes bladder normal to palpation External Female Exam: No lesion Speculum Exam - Vagina: normal appearance of the vagina, normal palpation, normal vaginal discharge and not erythematous Speculum Exam - Cervix: normal appearance of the cervix and normal palpation Bimanual exam- vagina & uterus: normal bimanual exam, normal palpation, uterine size normal, bladder normal to palpation, consistency normal and normal palpation Bimanual Exam- Adnexa, other: normal adnexae, no masses and no tenderness Assessment & Plan Assessment & Plan (1) Well woman exam: Code(s): Z01.419 - Encounter for gynecological examination (general) (routine) without abnormal findings Category: Medical Plan: Co testing done Counseled the patient about the recommended dietary allowance of 1200 mg of Calcium & 800 IU of vitamin D. Instructions given the patient to schedule next screening Mammogram in 09/11. The patient was instructed to perform monthly self-breast exams and to schedule an annual exam in a year; All questions answered and the patient verbalized understanding. Coding Level of Care Code Est Pt Prev Care >65y(45436) Diagnoses Well woman exam Z01.419
[2023-12-09 10:23] VITALS: BP 120/68; BMI 26.8
== END 2023-12-09 10:45 | disposition home or self-care (01) ==
PROVIDERS: PCP Internal Medicine; Visit Provider Obstetrics & Gynecology
DX: Z01.419 Encounter for gynecological examination (general) (routine) without abnormal findings (principal)
CPT/HCPCS: 99397

== ENCOUNTER → 2023-12-23 23:59 | Outpatient (BNV) | payer OTHER, SELFPAY ==
--- NOTE | 2024-01-09 15:56 | A.OFFVIS_ITS ---
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 Brother HTN (hypertension) Sister HTN (hypertension) Son Mental health disorder Daughter No problems noted. Social History Housing: House Patient Tobacco Use Status: Never used Tobacco e-Cigarette/Vaping Use: Never Used Advance Directives Date on File: 07/09/19 service: No Current occupational status: employed and retired Cognitive needs: No Hearing needs: No Vision needs: Yes Female Reproductive History Menstrual Age of Menarche: 10 Office Procedures Cardiac Device Check Cardiac Device Check Details: Remote implantable loop recorder report generated 12/23/2023. No arrhythmias detected. I was requested to read this study on 01/09/2024 [id number] Cardiac Interrogation, subcut cardiac rhythm monitor Procedure code (CPT) selection complete Assessment & Plan Assessment & Plan (1) Implantable loop recorder present: Comment: Placed 07/27/[address] Hurley Code(s): Z95.818 - Presence of other cardiac implants and grafts Category: Medical Plan: See above Coding Level of Care Code Procedure Only Diagnoses Implantable loop recorder present Z95.818 CPT Codes Cardiac Device Check - Cardiac Device 16: [id number] Cardiac Interrogation, s ubcut cardiac rhythm monitor ([id number])
== END ==
PROVIDERS: PCP Internal Medicine; Visit Provider Internal Medicine Cardiovascular Disease
DX: Z45.09 Encounter for adjustment and management of other cardiac device (principal)
CPT/HCPCS: 93298

== ENCOUNTER → 2023-12-23 23:59 | Outpatient (BNV) | payer OTHER, SELFPAY ==
--- NOTE | 2024-01-08 08:43 | MHC.OFFVIS ---
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 Brother HTN (hypertension) Sister HTN (hypertension) Son Mental health disorder Daughter No problems noted. Social History Housing: House Patient Tobacco Use Status: Never used Tobacco e-Cigarette/Vaping Use: Never Used Advance Directives Date on File: 07/09/19 service: No Current occupational status: employed and retired Cognitive needs: No Hearing needs: No Vision needs: Yes Female Reproductive History Menstrual Age of Menarche: 10 Office Procedures Cardiac Device Check Cardiac Device Check Details: Remote implantable loop recorder report generated 12/22/2023. In the last 30 days there was no evidence of atrial fibrillation or pauses [id number] Cardiac Interrogation, subcut cardiac rhythm monitor Procedure code (CPT) selection complete Assessment & Plan Assessment & Plan (1) Implantable loop recorder present: Comment: Placed 07/27/[address] Hurley Code(s): Z95.818 - Presence of other cardiac implants and grafts Category: Medical Plan: See above Coding Level of Care Code Procedure Only Diagnoses Implantable loop recorder present Z95.818 CPT Codes Cardiac Device Check - Cardiac Device 16: [id number] Cardiac Interrogation, subcut cardiac rhythm monitor ([id number])
== END ==
PROVIDERS: PCP Internal Medicine; Visit Provider Internal Medicine Cardiovascular Disease
DX: I48.91 Unspecified atrial fibrillation (principal); Z95.818 Presence of other cardiac implants and grafts
CPT/HCPCS: 93298

== ENCOUNTER 2024-01-23 09:12 | Outpatient (REF) | payer OTHER, SELFPAY ==
[2024-01-23 10:35] LABS: Estimated Average Glucose 131 mg/dL; Hemoglobin A1c % 6.2 % (<6.0)
[2024-01-23 11:22] LABS: Alanine Aminotransferase 24 U/L (0-31); Anion Gap 12 (12-20); Aspartate Amino Transferase 19 U/L (5-31); Blood Urea Nitrogen 14 mg/dL (9-16); Calcium 9.3 mg/dL (8.4-10.2); Carbon Dioxide 27 mmol/L (22-29); Chloride 106 mmol/L (96-108); Cholesterol 160 mg/dL (<200); Estimated Glomerular Filt Rate > 60; Glucose Fasting 102 mg/dL (60-99); HDL Cholesterol 40 mg/dL (>40); LDL Cholesterol Calculated 95 mg/dL (<100); Potassium 3.9 mmol/L (3.3-5.1); Sodium 141 mmol/L (135-145); Triglycerides 129 mg/dL (<150)
[2024-01-23 11:24] LABS: Vitamin D 25-OH Total 55.1 ng/mL (>30)
== END 2024-01-23 09:13 | disposition home or self-care (01) ==
LOC: HO.LAB 09:12
PROVIDERS: PCP Internal Medicine; Visit Provider Internal Medicine
DX: E55.9 Vitamin D deficiency, unspecified (principal); Z78.0 Asymptomatic menopausal state; R73.01 Impaired fasting glucose; N90.4 Leukoplakia of vulva; R23.2 Flushing; Z85.51 Personal history of malignant neoplasm of bladder; E78.00 Pure hypercholesterolemia, unspecified; Z01.419 Encounter for gynecological examination (general) (routine) without abnormal findings; I48.91 Unspecified atrial fibrillation
CPT/HCPCS: 36415; 80048; 80061; 82306; 83036; 84450; 84460

== ENCOUNTER → 2024-01-23 14:55 | Outpatient (RCR) | payer OTHER, SELFPAY ==
[2020-11-15 10:17] LABS: Glucose Urine UA NEG (NEG); Leukocyte Esterase Urine 3+ (NEG); Nitrite Urine NEG (NEG); Urine Blood 2+ (NEG); Urine Ketones NEG (NEG); Urine Protein NEG (NEG-TRACE)
[2020-11-15 10:23] LABS: Appearance Urine HAZY; Color Urine YELLOW
[2020-11-15 10:29] LABS: Squamous Epithelial Cell Urine 1+ /LPF
[2020-11-15 10:30] LABS: Mucus Urine 2+ /LPF; Renal Epithelial Cells Urine 1+ /LPF
[2020-11-15 10:55] VITALS: BMI 28.0
[2020-11-15] MEDS: Lidocaine HCl 2 % Urojet 10 ML JEL.PF.APP TOPICAL (15:09)
[2020-11-15 15:24] VITALS: BP 138/93; PULSE 88; RESP 18; TEMP 36.1; O2SAT 97; BMI 28.0
--- NOTE | 2020-11-15 15:30 | MHC.HEMONC ---
Pt here for Cycle 1 Day 1 Gemcitabine bladder treatment. Consent for treatment obtained. Urine specimen obtained and sent to lab. Results reviewed and sent to Dr Richards for review. Okay to receive treatment today per Dr Richards. #16 welsh catheter inserted into urinary meatus with assist of 2% lidocaine for lubrication. Approx. 150ml clear yellow urine obtained. 2 grams of gemcitabine instilled into bladder without difficulty-tolerated procedure well. Elida care given after procedure. Post chemo care and discharge packet given with follow up appointment. Discharged home.
[2020-11-22 07:58] LABS: Glucose Urine UA NEG (NEG); Leukocyte Esterase Urine 2+ (NEG); Nitrite Urine NEG (NEG); Specific Gravity - Urine <= 1.005 (1.005-1.025); Urine Blood 1+ (NEG); Urine Ketones NEG (NEG); Urine Protein NEG (NEG-TRACE)
[2020-11-22 07:59] LABS: Appearance Urine HAZY; Color Urine STRAW
[2020-11-22 08:06] LABS: Bacteria Urine TRACE /LPF; Squamous Epithelial Cell Urine 1+ /LPF
[2020-11-22 15:00] VITALS: BP 133/88; PULSE 78; RESP 18; TEMP 36.6; O2SAT 97; BMI 28.2
[2020-11-22] MEDS: Lidocaine HCl 2 % Urojet 10 ML JEL.PF.APP TOPICAL (15:22)
--- NOTE | 2020-11-22 15:47 | MHC.HEMONC ---
Pt here for Cycle 2 day 1 Gemcitabine bladder instillation. Urine specimen obtained this AM-sent to lab. Urinalysis results obtained and sent to Dr Richards. Peggy to receive treatment today. Pt states she feels well today. States was unable to hold Gemcitabine last week for longer than 5 minutes last week. #16 mccullough inserted into urinary meatus lubricated with 2% lidocaine- approx 200ml clear yellow urine returns. 2Grams Gemcitabine (100ml) instilled into bladder-tolerated well. Elida care given. Discharge instructions given. Discharge packet given. Follow up appointment scheduled. Discharged home
[2020-11-29 09:54] LABS: Glucose Urine UA NEG (NEG); Leukocyte Esterase Urine 1+ (NEG); Nitrite Urine NEG (NEG); Urine Blood 2+ (NEG); Urine Ketones NEG (NEG); Urine Protein NEG (NEG-TRACE)
[2020-11-29 09:55] LABS: Appearance Urine CLEAR; Color Urine YELLOW
[2020-11-29 10:05] LABS: RBC Urine 0-2 /HPF (0); Squamous Epithelial Cell Urine 2+ /LPF; WBC Urine 0-2 /HPF (0-4)
[2020-11-29 15:11] VITALS: BP 145/88; PULSE 70; RESP 18; TEMP 36.1; O2SAT 96; BMI 28.6
[2020-11-29] MEDS: Lidocaine HCl 2 % Urojet 10 ML JEL.PF.APP TOPICAL (15:15)
--- NOTE | 2020-11-29 15:38 | MHC.HEMONC ---
Pt here for Cycle 3 day 1 Gemcitabine bladder treatment. Urine specimen obtained-specimen sent to lab. Pt states she feels well today. Results sent to Dr Rocha to receive treatment today per Dr Richards. #16 mccullough inserted into urinary meatus with 2% lidocaine jelly used to lubricate catheter. 300ml clear yellow urine returns noted from bladder. 2Grams of Gemcitabine (100ml ) instilled into bladder-tolerated procedure well. Mccullough catheter removed. Elida care given. Discharge packet given. Discharged home.
== END | disposition home or self-care (01) ==
LOC: HO.ONC 11-15 09:45
PROVIDERS: PCP Internal Medicine; Visit Provider Urology
DX: Z51.11 Encounter for antineoplastic chemotherapy (principal); C67.9 Malignant neoplasm of bladder, unspecified
CPT/HCPCS: 51720; 81001; J9201

== ENCOUNTER 2024-01-27 08:58 | Outpatient (AMB) | payer OTHER, SELFPAY ==
[2024-01-27 09:02] VITALS: BP 120/80; PULSE 62; O2SAT 97; BMI 26.9
--- NOTE | 2024-01-27 09:02 | A.OFFPC_ITS ---
Vital Signs 01/27/24 09:02 Height 5 ft 8 in Weight 177 lb 4 oz BMI 26.9 BP 120/80 Blood Pressure Location Lt brachial Position Sitting Pulse 62 Pulse Source Pulse Oximeter Pulse Oximetry (%) 97 Oxygen Delivery Method Room Air Intake Visit Reasons: est/ follow up blood work Intake Note: Pt is here today for a follow up on blood work. Allergies No Known Allergies [No Known Allergies*] Allergy (Verified 02/03/24 00:59) Medication List - Last Reconciled 01/27/24 by Keesha Agustin MD apixaban (Eliquis) 5 mg PO BID 30 days atorvastatin 40 mg PO DAILY cholecalciferol (vitamin D3) 50 mcg PO DAILY citalopram 40 mg PO DAILY clobetasol 0.05% 1 appl topical DAILY 30 weeks estradiol 0.01%(0.1mg/gram) pea-sized to urethra 2 times a week; alternate with clobetasol cream 30 days magnesium gluconate 250 mg PO BID metoprolol tartrate 50 mg PO BID 30 days [multivitamin 1 tab PO DAILY] progesterone micronized 100 mg PO BEDTIME 90 days Tobacco use date assessed: 01/27/24 Fall risk assessment: No Falls in past year Last assessed Fall Risk: 01/27/24 Dental Screening Dental Screen Date: 01/27/24 Did you have a dental visit in the last 12 months?: No Did you have a dental problem in the last 6 months where you did not have access to dental care?: No Was dental information given to patient?: No HPI est/ follow up blood work HPI Details 64-year-old lady with past medical histo ry of new onset atrial fibrillation, infiltrative cardiomyopathy, peripheral demyelinating neuropathy, degenerative disc disease lumbar, with radiculopathy, history of bladder cancer, depression currently in remission, here today for follow-up on her hyperchol esterolemia. 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 Brother HTN (hypertension) Sister HTN (hypertension) Son Mental health disorder Daughter No problems noted. Social History Housing: House Patient Tobacco Use Status: Never used Tobacco e-Cigarette/Vaping Use: Never Used Advance Directives Date on File: 07/09/19 service: No Current occupational status: employed and retired Cognitive needs: No Hearing needs: No Vision needs: Yes Female Reproductive History Menstrual Age of Menarche: 10 Questionnaire PHQ-9 Over the last 2 weeks, how often have you been bothered by any of the following problems? 1. Little interest or pleasure in doing things: not at all 2. Feeling down, depressed, or hopeless: not at all 3. Trouble falling or staying asleep, or sleeping too much: several days 4. Feeling tired or having little energy: not at all 5. Poor appetite or overeating: not at all 6. Feeling bad about yourself - or that you are a failure or have let yourself or your family down: not at all 7. Trouble concentrating on things, such as reading the newspaper or watching television: not at all 8. Moving or speaking so slowly that other people could have noticed. Or the opposite - being so fidgety or restless that you have been moving around a lot more than usual: not at all 9. Thoughts that you would be better off or of hurting yourself in some way: not at all Total score: 1 Depression Screening Interpretation: Negative Depression Screening Done: Yes 85065 - PHQ-9 Billing: Yes Source: Developed by Drs. Joe Randolph, Shayna Chamberlain, Feliberto Velasquez and colleagues, with an educational tiffany from [employer]. Thrive Questionnaire Date Thrive assessed: 01/27/24 I am a: Patient What is your living situation today?: I have a steady place to live Within the past 12 months, did the food you bought not last and you didn't have the money to get more?: Never true Within the past 12 months, did you worry whether your food would run out before you got money to buy more?: Never true Do you have trouble paying for medicines?: No Do you have trouble getting transportation to medical appointments?: No Do you have trouble paying your heating and electricity bill?: No Do you have trouble taking care of your child, family member or friend?: No Do you have trouble with day-to-day activities such as bathing, preparing meals, shopping, managing finances, etc.?: No Are you currently unemployed and looking for a job?: No Are you interested in more education?: No Please select the resources that you would like help with: None Currently or been in a relationship where the following occur: No concerns reported THRIVE Score: 0 AUDIT C Alcohol Use Questionnaire (AUDIT-C) 1. How often do you have a drink containing alcohol?: 2-4 times a month 2. How many drinks containing alcohol do you have on a typical day when you are drinking?: 1 or 2 3. How often do you have six or more drinks on one occasion?: Never Total Score: 2 Score Reviewed/Action Taken: Yes JEREMY-7 AMB Questionnaire JEREMY-7 Date JEREMY - 7 assessed: 01/27/24 Feeling nervous, anxious, or on edge: 0 = Not at all Not being able to stop or control worryin = Not at all Worrying too much about different things: 0 = Not at all Trouble relaxin = Not at all Being so restless that it is hard to sit still: 0 = Not at all Becoming easily annoyed or irritable: 0 = Not at all Feeling afraid as if something awful might happen: 0 = Not at all Total JEREMY-7 score (0-4 normal; 5-9 mild; 10-14 moderate; 15-21 severe): 0 Source: Developed by Drs. Joe Randolph, Feliberto Eastman and colleagues, with an educational tiffany from [employer]. JEREMY-7 Assessment Billing JEREMY-7 Assessment Tool: JEREMY-7 Assessment 77041 Review of Systems Const Denies chills and Denies fever(s) Card Reports no additional complaints and Denies syncope Resp Denies cough GI Denies abdominal pain and Denies heartburn Reports as per HPI and Denies change in libido Neuro Denies syncope Psych Denies change in libido Endo Denies change in libido Physical exam (Primary Care) Vital Signs: Last Vital Signs Pulse 62 01/27/24 09:02 BP 120/80 01/27/24 09:02 Pulse Ox 97 01/27/24 09:02 Oxygen Delivery Method Room Air 01/27/24 09:02 BMI result Body Mass Index 26.9 Tobacco/Smoking Status: Tobacco use Status Tobacco use date assessed 01/27/24 01/27/24 09:07 Patient Tobacco Use Status Never used Tobacco 01/27/24 09:03 e-Cigarette/Vaping Use Never Used 01/27/24 09:03 PHQ-9: PHQ-9 Score PHQ-9: Total score 1 01/27/24 09:35 Depression Screening Interpretation: Negative Thrive Assessment: Date of Thrive Assessment Date Thrive assessed 01/27/24 01/27/24 09:07 Currently or been in a relationship where the following occur: No concerns reported Const General: cooperative, comfortable and no acute distress Orientation/consciousness: patient oriented x3 Eyes General: appearance normal, both eyes and all related structures Neck Neck: Yes full ROM, Yes no lymphadenopathy and Yes supple Chest Breast/axilla palpation: normal palpation of the breasts Resp Effort & Inspection: normal respiratory effort and able to speak in complete sentences Auscultation: clear to auscultation bilaterally Cardio Rate: regular rate Rhythm: regular rhythm Heart sounds: S1 normal heart sound present and S2 normal heart sound present GI Inspection: Yes normal to inspection Palpation (GI): Soft to palpation, nontender and no masses Auscultation: normal bowel sounds Back/Spine/Pelvis Back: No back tenderness Neuro Other: Positive footdrop on the left General: patient oriented x3, tone normal, moves all extremities and Normal light touch and pain sensation Cognition (Neuro): normal cognition Motor exam (neuro): 5/5 motor strength present throughout Extrem General: Yes normal to inspection, Yes full ROM, Yes no joint enlargement and Yes no calf tenderness Immunizations pneumoc 20-julio conj-dip cr(PF) 0.5 mL IM syringe Performing Provider: Keesha Agustin MD [facility] Administered by: ADE Manzano on 01/27/24 09:35 Dose Route Admin Location Dispensed Lot Number Expiration Date NDC Pecan Mallow Dipper 0.5 mL IM Left Deltoid 0.5 mL [id number] 11/16/24 5960-9996-79 WYETH/PFIZER VIS Given Date VIS Provided VIS Publication Date 01/27/24 Single Vaccine 21 Eligibility Eligibility Date Funding Source Not VFC Eligible 01/27/24 Private Results Reviewed Results Reviewed: Name: Sweetie Aponte Age/Sex: 64/F : 1960 Unit#: [id number] Attend Dr: Keesha Agustin MD Re01/23/24 Status: DEP REF [facility] Disch: SPEC : [id number] MICK: 01/23/24 STATUS: COMP REQ : [id number] RECD: 01/23/[address]: Keesha Agustin MD COMP: 01/23/24 ENTERED: 01/23/[address]: ORDERED: Met Prof Fast, AST, ALT, Lipid Panel, Vitamin D 25-OH Test Result Flag Reference Sodium 141 135-145 mmol/L Potassium 3.9 3.3-5.1 mmol/L CL 106 96-108 mmol/L CO2 27 22-29 mmol/L Gap 12 12-20 BUN 14 9-16 mg/dL Creat 0.80 0.5-1.4 mg/dL EGFR > 60 NOTE: For -[place] individuals, multiply the result by 1.210. Chronic Kidney Disease: Estimated GFR < 60 mL/min/1.73m2 Severe Kidney Disease: Estimated GFR < 15 mL/min/1.73m2 FBS 102 H 60-99 mg/dL A fasting glucose from 100-125 mg/dl is considered impaired (pre-diabetes). CA 9.3 8.4-10.2 mg/dL AST (GOT) 19 5-31 U/L ALT (GPT) 24 0-31 U/L Triglyceride 129 <150 mg/dL Desirable Triglyceride: less than 150 mg/dL Borderline High Triglyceride 150-199 mg/dL High Triglyceride: 200-499 mg/dL Very High Triglyceride: greater than or equal to 5OO mg/dL Cholesterol 160 <200 mg/dL Desirable Cholesterol: less than 200 mg/dL Borderline High Cholesterol: 200-239 mg/dL High Cholesterol: greater than 239 mg/dL LDL Calculated 95 <100 mg/dL Desirable LDL: less than 100 mg/dL Near Optimal/Above Optimal LDL: 110-129 mg/dL Borderline High LDL: 130-159 mg/dL High LDL: 160-189 mg/dL Very High LDL: greater than or equal to 190 mg/dL HDL 40 L >40 mg/dL Desirable HDL: greater than 40 mg/dL Note: This HDL assay may give artificially low results in patients with liver disease. Vit D 25-OH Tot 55.1 >30 ng/mL Health Based Reference Values* < 20 ng/mL Deficient 20-30 ng/mL Insufficient > 30 ng/mL Sufficient *Ajay MELCHOR. N Engl J Med. 2007;357:266-280 Care must be taken in interpreting Vitamin D results from different laboratories and methodologies. Published data demonstrated that results from patients undergoing hemodialysis may show a negative bias when tested with various automated 25-OH vitamin D assays when compared to LC-MS/MS. When testing samples from patients whose predominant form of Vitamin D is Vitamin D2, such as patients receiving Vitamin D2 supplementation, results that are subtherapeutic should be confirmed with another method such as LC-MS/MS. Assessment and Plan Assessment & Plan (1) Hypercholesteremia: Code(s): E78.00 - Pure hypercholesterolemia, unspecified Plan: Reviewed recent fasting lipid profile with patient with levels better and within normal limits . Continue atorvastatin 40 mg daily , in addition to adherence to low-cholesterol diet and regular exercise, at least 30 minutes 3 to 4 times a week. Advised patient to make healthy food choices, eat more fruits, vegetables, whole grains, wild caught fish and low-fat dairy. Limit amount of meat and fried or fatty food products, as well as processed foods and fast foods. Follow-up scheduled with repeat fasting lipid panel in 6 months. (2) Impaired fasting glucose: Code(s): R73.01 - Impaired fasting glucose Plan: Latest fasting sugar was 102 mg/dL. Reinforced importance of following a healthy diet and getting regular exercise to prevent further progression to diabetes mellitus. (3) Need for pneumococcal 20-valent conjugate vaccination: Code(s): Z23 - Encounter for immunization Plan: Prevnar 20 given today Orders: Orders Hemoglobin A1c 07/18/24 E78.00 - Pure hypercholesterolemia, unspecified, R73.01 - Impaired fasting glucose, Z78.0 - Asymptomatic menopausal state Alanine Aminotransferase 07/18/24 E78.00 - Pure hypercholesterolemia, unspecified, R73.01 - Impaired fasting glucose, Z78.0 - Asymptomatic menopausal state Lipid Panel 07/18/24 E78.00 - Pure hypercholesterolemia, unspecified, R73.01 - Impaired fasting glucose, Z78.0 - Asymptomatic menopausal state Aspartate Amino Transferase 07/18/24 E78.00 - Pure hypercholesterolemia, u nspecified, R73.01 - Impaired fasting glucose, Z78.0 - Asymptomatic menopausal state Basic Metabolic Panel Fasting 07/18/24 E78.00 - Pure hypercholesterolemia, unspecified, R73.01 - Impaired fasting glucose, Z78.0 - Asymptomatic menopausal state Vitamin D 25-OH Total 07/18/24 E78.00 - Pure hypercholesterolemia, unspecified, R73.01 - Impaired fasting glucose, Z78.0 - Asymptomatic menopausal state Pneumococcal 20 Immunization 01/27/24 Z23 - Encounter for immunization Coding Level of Care Code Est Pt Level 4 (34920) Complex EM visit Add On G2211 Diagnoses Hypercholesteremia E78.00 Impaired fasting glucose R73.01 Need for pneumococcal 20-valent conjugate vaccination Z23 Additional Codes JEREMY-7 Assessment Billing - JEREMY-7 Assessment Tool: JEREMY-7 Assessment 81784 ([id number])
== END 2024-01-27 10:47 | disposition home or self-care (01) ==
PROVIDERS: PCP Internal Medicine; Visit Provider Internal Medicine
DX: Z23 Encounter for immunization (principal)
CPT/HCPCS: 90471; 90677; 99214

== ENCOUNTER → 2024-01-27 23:59 | Outpatient (BNV) | payer OTHER, SELFPAY ==
--- NOTE | 2024-01-30 10:11 | MHC.OFFVIS ---
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 Brother HTN (hypertension) Sister HTN (hypertension) Son Mental health disorder Daughter No problems noted. Social History Housing: House Patient Tobacco Use Status: Never used Tobacco e-Cigarette/Vaping Use: Never Used Advance Directives Date on File: 07/09/19 service: No Current occupational status: employed and retired Cognitive needs: No Hearing needs: No Vision needs: Yes Female Reproductive History Menstrual Age of Menarche: 10 Office Procedures Cardiac Device Check Cardiac Device Check Details: Remote implantable loop recorder report generated 01/27/2024. One episode of atrial fibrillation lasting about 10 hours was noted with total burden of 3.2%. No pauses noted. Battery life is adequate [id number] Cardiac Interrogation, subcut cardiac rhythm monitor Procedure code (CPT) selection complete Assessment & Plan Assessment & Plan (1) Implantable loop recorder present: Comment: Placed 07/27/[address] Hurley Code(s): Z95.818 - Presence of other cardiac implants and grafts Category: Medical Plan: See above Coding Level of Care Code Procedure Only Diagnoses Implantable loop recorder present Z95.818 CPT Codes Cardiac Device Check - Cardiac Device 16: [id number] Cardiac Interrogation, subcut cardiac rhythm monitor ([id number])
== END ==
PROVIDERS: PCP Internal Medicine; Visit Provider Internal Medicine Cardiovascular Disease
DX: I48.91 Unspecified atrial fibrillation (principal); Z95.818 Presence of other cardiac implants and grafts
CPT/HCPCS: 93298

== ENCOUNTER 2024-01-30 10:01 | Outpatient (AMB) | payer OTHER, SELFPAY ==
--- NOTE | 2024-01-30 10:07 | MHC.OFFVIS ---
Intake Visit Reasons: cysto(Bladder Ca) Intake Note: Patient is Present for Cystoscopy Urology Med: Estradiol Antibiotic Allergy:None Blood Thinner: Eliquis Last Cytology- 07/2023 No Recent FISH Cytology for this Year URO- G Disposable Cystoscope lot: [id number] exp:08/28/2026 Burring Wheel Operator Required: No Accompanied by: Self / Same As Patient Allergies No Known Allergies [No Known Allergies*] Allergy (Verified 01/30/24 10:08) HPI Comments Details: Sweetie is a pleasant female. She is seen for the following urologic conditions - bladder cancer - lichen sclerosis - hot flashes Six-month follow-up Prior bladder cancer Did have Botox last performed 10/09 Has managed lichen sclerosis with combination intermittent topical steroid + estradiol on alternate days Bladder clear on cystoscopy today Has noticed progressive urgency frequency Would like to move ahead with repeat Botox This will be organized Bladder cancer June 2018 low-grade recurrence Longstanding Last TURBT June 2018 with low-grade bladder cancer Longstanding smoking history Underwent BCG therapy Cystoscopy 02/07 NAD, 08/08 NAD, 08/09 NAD, 02/09 NAD, 08/10 NAD Cytology NAD Continue with bladder check every 6 months Urgency frequency Non responsive to oral medications Botox performed to bladder in August 2020, 08/08, 10/09 Good effect with Botox Lichen sclerosis Vaginal introitus Good response to steroid therapy and estradiol cream on alternating days Continue with [id number] PFSH Medical History Implantable loop recorder present New onset atrial fibrillation Hx of atrial fibrillation, no current medication Lesion of skin of scalp Degenerative disc disease, lumbar Left foot drop Depression, major, in remission Menopause Vitamin D deficiency Lumbar disc herniation with radiculopathy Lumbar nerve root impingement 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 Brother HTN (hypertension) Sister HTN (hypertension) Son Mental health disorder Daughter No problems noted. Social History Housing: House Patient Tobacco Use Status: Never used Tobacco e-Cigarette/Vaping Use: Never Used Advance Directives Date on File: 07/09/19 service: No Current occupational status: employed and retired Cognitive needs: No Hearing needs: No Vision needs: Yes Female Reproductive History Menstrual Age of Menarche: 10 Review of Systems Const Denies chills and Denies fever(s) Card Reports no additional complaints and Denies syncope Resp Denies cough GI Denies abdominal pain and Denies heartburn Reports as per HPI and Denies change in libido Neuro Denies syncope Psych Denies change in libido Endo Denies change in libido Physical Exam Const General: cooperative, healthy appearing, comfortable and no acute distress Orientation/consciousness: patient oriented x3 HEENT Face and sinus: Yes normal facial exam Mouth: moist mucous membranes Neck Neck: Yes normal visual inspection, Yes full ROM and Yes trachea midline Chest Chest palpation & inspection: normal inspection of the chest Resp Effort & Inspection: normal respiratory effort, able to speak in complete sentences and no respiratory distress GI Inspection: Yes normal to inspection Back/Spine/Pelvis Cervical Spine: normal cervical lordosis Thoracic/Lumbar Spine: thoracic and lumbar spine normal to inspection Skin General skin exam: no rashes or lesions noted Neuro General: patient oriented x3, gait normal, tone normal and moves all extremities Extrem General: Yes normal to inspection and Yes capillary refill normal Office Procedures Cystoscopy Consent Discussed risk and benefit or proposed procedure with the patient. Information consent for procedure given to the patient. Discussed technical aspects, risks, benefits and alternatives in full. Addressed all of the patient's questions and concerns regarding the procedure. The patient demonstrated knowledge and understanding. They wish to proceed with this procedure. Preparation The patient was prepped in the usual manner. A disability case manager was present and in the room. Genitalia was prepped with betadine solution in a sterile manner. Lidocaine Jelly 2% was placed into the urethra and 16Fr flexible Olympus cystoscope was inserted into the meatus after adequate lubrication. Procedure Meatus atrophic Urethra normal Bladder examination with retroflexion of cystoscope Bladder Orifices normal shape and position Trigone normal Bladder Capacity normal Trabeculations - Cellule Formation - Diverticulum Formation - Mucosal Erythema - Bladder Tumor - [id number] DISPOSABLE SCOPE URO-G FLEXIBLE SCOPE Procedure code (CPT) selection complete Office Meds lidocaine HCl 2 % mucosal jelly in applicator Performing Provider: Silverio Richards MD Performing Location: [facility] [place] [facility] Administered by: Carlo Huffman RN on 01/30/24 10:30 Dose Route Admin Location Dispensed Lot Number Expiration Date [employer] 10 mL intra-urethral 10 mL nitrofurantoin monohydrate/macrocrystals 100 mg capsule Performing Provider: Silverio Richards MD Performing Location: [facility] [place] [facility] Administered by: Carlo Huffman RN on 01/30/24 10:30 Dose Route Admin Location Dispensed Lot Number Expiration Date [employer] 100 mg PO 1 cap naproxen 500 mg tablet Performing Provider: Silverio Richards MD Performing Location: [facility] [place] [facility] Administered by: Carlo Huffman RN on 01/30/24 10:30 Dose Route Admin Location Dispensed Lot Number Expiration Date [employer] 500 mg PO 1 tab Results AMB Urinalysis, Automated UA Leukoctes 70 Nora/uL Last Edit by ADE Sanchez on 01/30/24 10:17 UA Nitrite Negative Last Edit by Karime Alcantar [facility] on 01/30/24 10:17 UA Urobilinogen 0.2 mg/dL Last Edit by ADE Sanchez on 01/30/24 10:17 UA Protein 0 mg/dL Last Edit by Karime Alcantar [facility] on 01/30/24 10:17 UA pH 6.0 Last Edit by Karime Alcantar [facility] on 01/30/24 10:17 UA Blood 80 Papo/uL Last Edit by Karime Alcantar Andrew on 01/30/24 10:17 UA Specific [place] 1.015 Last Edit by Karime Alcantar Andrew on 01/30/24 10:17 UA Ketone Negative Last Edit by ADE Sanchez on 01/30/24 10:17 UA Bilirubin 0 mg/dL Last Edit by KarimeADE Arita on 01/30/24 10:17 UA Glucose 0 mg/dL Last Edit by ADE Sanchez on 01/30/24 10:17 Results Reviewed Results Reviewed: Laboratory Last Values Urine pH (Auto) 6.0 01/30/24 10:09 Specific [place] (Auto) 1.015 01/30/24 10:09 Urine Protein (Auto) 0 mg/dL 01/30/24 10:09 Glucose (UA)(Auto) 0 mg/dL 01/30/24 10:09 Urine Ketones (Auto) Negative 01/30/24 10:09 Urine Blood (Auto) 80 Papo/uL 01/30/24 10:09 Urine Nitrite (Auto) Negative 01/30/24 10:09 Urine Bilirubin (Auto) 0 mg/dL 01/30/24 10:09 Urine Urobilinogen (Auto) 0.2 mg/dL 01/30/24 10:09 Leukocyte Esterase (Auto) 70 Nora/uL 01/30/24 10:09 Assessment & Plan Assessment & Plan (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 These include but are not limited to infection, bleeding, damage to local organs and tissues, need for further interventions. Anesthetic risks regarding cardiac arrhythmia, blood clots, and potential mortality were discussed. The patient understands the typical recovery time and the outpatient nature of the procedure. After consideration of these risks the patient gives full informed consent and they wish to move ahead with the procedure. Orders: Orders AMB Cystoscopy Today C67.9 - Malignant neoplasm of bladder, unspecified Urine Cytology Today C67.9 - Malignant neoplasm of bladder, unspecified AMB Urinalysis Automated Today Z13.9 - Encounter for screening, unspecified Medications: New sulfamethoxazole-trimethoprim 400-80 mg (Bactrim) Take 1 tablet daily starting 3 days prior to procedure and continuing for 3 days after procedure 1 tab PO DAILY 7 days 7 tabs 0RF N32.81 - Overactive bladder, N39.0 - Urinary tract infection, site not specified Refilled estradiol 0.01%(0.1mg/gram) pea-sized to urethra 2 times a week; alternate with clobetasol cream 30 days 42.5 grams 2RF N95.2 - Postmenopausal atrophic vaginitis clobetasol 0.05% Apply 0.5 finger tip every other day 1 appl topical DAILY 30 weeks 30 grams 1RF N90.4 - Leukoplakia of vulva Patient Instructions: Imaging studies, laboratory and physical exam results were discussed and reviewed in detail. No major barriers to patient understanding were identified. An opportunity to ask questions regarding the treatment plan was provided. All questions were answered. The patient expressed understanding and agreement with the above treatment plan. The patient is aware they should contact our office by phone for worsening of their current condition or the appearance of new urologic symptoms. Compliance is encouraged with any medications and followup testing that is ordered. It is a privilege to participate in the urologic care of your patient. If you have any questions or concerns regarding treatment for the above conditions, or other urologic issues, please do not hesitate to contact me. The office telephone contact is [phone]. This note is constructed using voice recognition software. While every effort has been made to ensure accuracy floor surfacer errors may have been included. Yours sincerely, Dr Silverio Richards MD, [facility] - Urology Providers of Expert, Compassionate Care for the Genitourinary System Coding Level of Care Code Est Pt Level 4 (42295) Diagnoses Vulvar leukoplakia N90.4 Overactive bladder N32.81 Bladder cancer C67.9 CPT Codes Cystoscopy - CPT: 99729-Fpeoiwbdur ([id number])
== END 2024-01-30 10:48 | disposition home or self-care (01) ==
PROVIDERS: PCP Internal Medicine; Visit Provider Urology
DX: N90.4 Leukoplakia of vulva (principal); C67.9 Malignant neoplasm of bladder, unspecified; N32.81 Overactive bladder; Z13.9 Encounter for screening, unspecified
CPT/HCPCS: 52000; 99214

== ENCOUNTER 2024-01-30 10:01 | Outpatient (REF) | payer OTHER, SELFPAY ==
[2024-01-30 16:58] LABS: Urine Cytology See Pathology rpt
== END 2024-01-30 10:02 | disposition home or self-care (01) ==
LOC: HO.LAB 10:01
PROVIDERS: PCP Internal Medicine; Visit Provider Urology
DX: C67.9 Malignant neoplasm of bladder, unspecified (principal); N90.4 Leukoplakia of vulva; N32.81 Overactive bladder; N39.0 Urinary tract infection, site not specified; N95.2 Postmenopausal atrophic vaginitis; Z79.899 Other long term (current) drug therapy
CPT/HCPCS: 52000; 81003; 88112; 99212

== ENCOUNTER → 2024-02-22 23:59 | Outpatient (BNV) | payer OTHER, SELFPAY ==
--- NOTE | 2024-02-26 11:45 | MHC.OFFVIS ---
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 Brother HTN (hypertension) Sister HTN (hypertension) Son Mental health disorder Daughter No problems noted. Social History Housing: House Patient Tobacco Use Status: Never used Tobacco e-Cigarette/Vaping Use: Never Used Advance Directives Date on File: 07/09/19 service: No Current occupational status: employed and retired Cognitive needs: No Hearing needs: No Vision needs: Yes Female Reproductive History Menstrual Age of Menarche: 10 Office Procedures Cardiac Device Check Cardiac Device Check Details: Remote implantable loop recorder report generated 02/22/2024. Intermittent episodes of atrial fibrillation noted with total burden of 1.9%. No pauses noted [id number] Cardiac Interrogation, subcut cardiac rhythm monitor Procedure code (CPT) selection complete Assessment & Plan Assessment & Plan (1) Implantable loop recorder present: Comment: Placed 07/27/[address] Hurley Code(s): Z95.818 - Presence of other cardiac implants and grafts Category: Medical Plan: See above Coding Level of Care Code Procedure Only Diagnoses Implantable loop recorder present Z95.818 CPT Codes Cardiac Device Check - Cardiac Device 16: [id number] Cardiac Interrogation, subcut cardiac rhythm monitor ([id number])
== END ==
PROVIDERS: PCP Internal Medicine; Visit Provider Internal Medicine Cardiovascular Disease
DX: I48.91 Unspecified atrial fibrillation (principal); Z95.818 Presence of other cardiac implants and grafts
CPT/HCPCS: 93298

== ENCOUNTER 2024-03-11 09:53 | Outpatient (REF) | payer OTHER, SELFPAY | END 2024-03-11 09:54 | disposition home or self-care (01) | LOC: HO.LAB 09:53 | PROVIDERS: PCP Internal Medicine; Visit Provider Urology | DX: C67.9 Malignant neoplasm of bladder, unspecified (principal); N32.81 Overactive bladder | CPT/HCPCS: 52287; 81003; 88121; J0585 ==

== ENCOUNTER 2024-03-11 09:53 | Outpatient (AMB) | payer OTHER, SELFPAY ==
--- NOTE | 2024-03-11 09:55 | MHC.OFFVIS ---
Intake Visit Reasons: Botox(PA Set) Intake Note: Patient is present for Cystoscopy with Bladder Botox Injections Urology Med: Estradiol Antibiotic Allergy: None Blood Thinner: Eliquis Last Urine Cytology: 01/2024 Patient states that she did take Pre Op Antibiotic Started on Saturday03/08/2024 Uro N Injection Cystoscope: Lot:[id number] Exp:06/17/2025 Community Outreach Specialist Required: No Accompanied by: Self / Same As Patient Allergies No Known Allergies [No Known Allergies*] Allergy (Verified 03/11/24 09:56) HPI Comments Details: Sweetie is a pleasant female. She is seen for the following urologic conditions - bladder cancer - lichen sclerosis - hot flashes Here for repeat Botox Has managed lichen sclerosis with combination intermittent topical steroid + estradiol on alternate days Bladder clear on cystoscopy today Has noticed progressive urgency frequency Would like to move ahead with repeat Botox This will be organized Bladder cancer June 2018 low-grade recurrence Longstanding Last TURBT June 2018 with low-grade bladder cancer Longstanding smoking history Underwent BCG therapy Cystoscopy 02/07 NAD, 08/08 NAD, 08/09 NAD, 02/09 NAD, 08/10 NAD, 02/10 NAD Cytology NAD 02/10 Continue with bladder check every 6 months Urgency frequency Non responsive to oral medications Botox performed to bladder in August 2020, 08/08, 10/09, 03/12 Good effect with Botox Lichen sclerosis Vaginal introitus Good response to steroid therapy and estradiol cream on alternating days Continue with [id number] [facility] Medical History Implantable loop recorder present New onset atrial fibrillation Hx of atrial fibrillation, no current medication Lesion of skin of scalp Degenerative disc disease, lumbar Left foot drop Depression, major, in remission Menopause Vitamin D deficiency Lumbar disc herniation with radiculopathy Lumbar nerve root impingement 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 Brother HTN (hypertension) Sister HTN (hypertension) Son Mental health disorder Daughter No problems noted. Social History Housing: House Patient Tobacco Use Status: Never used Tobacco e-Cigarette/Vaping Use: Never Used Advance Directives Date on File: 07/09/19 service: No Current occupational status: employed and retired Cognitive needs: No Hearing needs: No Vision needs: Yes Female Reproductive History Menstrual Age of Menarche: 10 Review of Systems Const Denies chills and Denies fever(s) Card Reports no additional complaints and Denies syncope Resp Denies cough GI Denies abdominal pain and Denies heartburn Reports as per HPI and Denies change in libido Neuro Denies syncope Psych Denies change in libido Endo Denies change in libido Physical Exam Const General: cooperative, healthy appearing, comfortable and no acute distress Orientation/consciousness: patient oriented x3 HEENT Face and sinus: Yes normal facial exam Mouth: moist mucous membranes Neck Neck: Yes normal visual inspection, Yes full ROM and Yes trachea midline Chest Chest palpation & inspection: normal inspection of the chest Resp Effort & Inspection: normal respiratory effort, able to speak in complete sentences and no respiratory distress GI Inspection: Yes normal to inspection Back/Spine/Pelvis Cervical Spine: normal cervical lordosis Thoracic/Lumbar Spine: thoracic and lumbar spine normal to inspection Skin General skin exam: no rashes or lesions noted Neuro General: patient oriented x3, gait normal, tone normal and moves all extremities Extrem General: Yes normal to inspection and Yes capillary refill normal Office Procedures Cystoscopy Consent Discussed risk and benefit or proposed procedure with the patient. Information consent for procedure given to the patient. Discussed technical aspects, risks, benefits and alternatives in full. Addressed all of the patient's questions and concerns regarding the procedure. The patient demonstrated knowledge and understanding. They wish to proceed with this procedure. Preparation The patient was prepped in the usual manner. A fire alarm dispatcher was present and in the room. Genitalia was prepped with betadine solution in a sterile manner. Lidocaine Jelly 2% was placed into the urethra and 16Fr flexible Olympus cystoscope was inserted into the meatus after adequate lubrication. Procedure Cystoscopy performed with 16 Sinhala cystoscope. Bladder had been prepped with lidocaine and lidocaine jelly placement 15 minutes prior to procedure. Antibiotics were administrated for 2 days prior to procedure. UA has been performed and shows no evidence of infection. Bladder was emptied of urine. Bladder was refilled. Using 100 units of Botox mixed in 10 cc of normal saline injections were placed at the back wall of the bladder. 0.5cc placed at each injection site. Injections were placed in a grid 5 across and 4 high. Injections were placed from the inferior to superior position. Trabeculations on the bladder wall were targeted if present. Procedure was tolerated well. 2 week follow-up for PVR Patient prepped with botox cocktail through 16fr straight catheter consisting of: 20mls bupivicaine 0.50% 5ml lidocaine 2% 20mls lidocaine urojet Dr. Richards to do botox injection [id number] - Botox Injection, urethra or bladder DISPOSABLE SCOPE URO-N NEEDLE SCOPE Procedure code (CPT) selection complete Office Meds lidocaine HCl 2 % mucosal jelly in applicator Performing Provider: Silverio Richards MD Performing Location: [facility] Administered by: Edson Cid LPN on 03/11/24 10:39 Dose Route Admin Location Dispensed Lot Number Expiration Date [facility] Customer Service Attendant 10 mL intra-urethral 20 mL onabotulinumtoxinA 100 unit solution for injection Performing Provider: Silverio Richards MD Performing Location: [facility] Administered by: Edson Cid LPN on 03/11/24 10:39 Dose Route Admin Location Dispensed Lot Number Expiration Date [facility] Customer Service Attendant 100 unit transurethral bladder 100 units [id number] 10/18/25 7293-6994-57 ALLERGAN/BOTOX naproxen 500 mg tablet Performing Provider: Silverio Richards MD Performing Location: [facility] Administered by: Edson Cid LPN on 03/11/24 10:39 Dose Route Admin Location Dispensed Lot Number Expiration Date [place] Customer Service Attendant 500 mg PO 1 tab Results AMB Urinalysis, Automated UA Leukoctes 0 Nora/uL Last Edit by ADE Sanchez on 03/11/24 10:30 UA Nitrite Negative Last Edit by ADE Sanchez on 03/11/24 10:30 UA Urobilinogen 0.2 mg/dL Last Edit by Karime Alcantar, RMA on 03/11/24 10:30 UA Protein 0 mg/dL Last Edit by Karime Alcantar, RMA on 03/11/24 10:30 UA pH 6.5 Last Edit by Karime Alcantar, RMA on 03/11/24 10:30 UA Blood 80 Papo/uL Last Edit by Karime Alcantar, RMA on 03/11/24 10:30 UA Specific Eldora 1.010 Last Edit by Karime Alcantar, RMA on 03/11/24 10:30 UA Ketone Negative Last Edit by Karime Alcantar, RMA on 03/11/24 10:30 UA Bilirubin 0 mg/dL Last Edit by Karime Alcantar, RMA on 03/11/24 10:30 UA Glucose 0 mg/dL Last Edit by Karime Alcantar, RMA on 03/11/24 10:30 Results Reviewed Results Reviewed: Laboratory Last Values Urine pH (Auto) 6.5 03/11/24 09:57 Specific Eldora (Auto) 1.010 03/11/24 09:57 Urine Protein (Auto) 0 mg/dL 03/11/24 09:57 Glucose (UA)(Auto) 0 mg/dL 03/11/24 09:57 Urine Ketones (Auto) Negative 03/11/24 09:57 Urine Blood (Auto) 80 Papo/uL 03/11/24 09:57 Urine Nitrite (Auto) Negative 03/11/24 09:57 Urine Bilirubin (Auto) 0 mg/dL 03/11/24 09:57 Urine Urobilinogen (Auto) 0.2 mg/dL 03/11/24 09:57 Leukocyte Esterase (Auto) 0 Nora/uL 03/11/24 09:57 Assessment & Plan Assessment & Plan (1) Overactive bladder: Comment: Sanjeev 08/08 Code(s): N32.81 - Overactive bladder Category: Medical Plan Two week follow-up nursing PVR Orders: Orders AMB Urinalysis Automated Today Z13.9 - Encounter for screening, unspecified FISH Bladder Cancer Today C67.9 - Malignant neoplasm of bladder, unspecified AMB Cystoscopy Today N32.81 - Overactive bladder Coding Level of Care Code Procedure Only Diagnoses Overactive bladder N32.81 CPT Codes Cystoscopy - CPT: 15625-Gaivogkqol ([id number]) Cystoscopy - CPT: 51311 - Botox Injection, urethra or bladder ([id number])
== END 2024-03-11 11:17 | disposition home or self-care (01) ==
PROVIDERS: PCP Internal Medicine; Visit Provider Urology
DX: N32.81 Overactive bladder (principal); Z13.9 Encounter for screening, unspecified
CPT/HCPCS: 52287

== ENCOUNTER 2024-03-17 10:55 | Outpatient (AMB) | payer OTHER, SELFPAY ==
[2024-03-17 10:58] VITALS: BP 116/80; PULSE 59; O2SAT 96; BMI 27.7
--- NOTE | 2024-03-17 10:58 | MHC.OFFVIS ---
Vital Signs 03/17/24 10:58 Height 5 ft 8 in Weight 182 lb 2 oz BMI 27.7 BP 116/80 Blood Pressure Location Rt brachial Position Sitting Pulse 59 Pulse Source Pulse Oximeter Pulse Oximetry (%) 96 Oxygen Delivery Method Room Air Intake Visit Reasons: 6 month F/U Intake Note: Patient presents for a follow up. 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 Her motor strength has improved but she still has numbness in her left plantar surface. May 2023 EMG/NCS of left lower extremity result reviewed. 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 SLeep study showed severe sleep apnea . AHI 30 and oxygen dennis was 64 % but she did not start CPAP or follow up with Pulmonary. Denies back pain. Pt had a repeat lumbar MRI result (Apr, 2023) reviewed. There is no evidence of acute fracture or traumatic subluxation of lumbar spine. Grade 1 anterolisthesis of L4 and L5 is likely degenerative in nature. Multilevel degerative disc disease most pronounced at L4-L5. [facility] Medical History (Updated 03/17/24 @ 11:20 by Barbara Méndez MD) Obstructive sleep apnea hypopnea, severe Implantable loop recorder present Hx of atrial fibrillation, no current medication Lesion of skin of scalp Degenerative disc disease, lumbar Left foot drop Depression, major, in remission Menopause Vitamin D deficiency Lumbar disc herniation with radiculopathy Lumbar nerve root impingement 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 Brother HTN (hypertension) Sister HTN (hypertension) Son Mental health disorder Daughter No problems noted. Social History Housing: House Patient Tobacco Use Status: Never used Tobacco e-Cigarette/Vaping Use: Never Used Advance Directives Date on File: 07/09/19 service: No Current occupational status: employed and retired Cognitive needs: No Hearing needs: No Vision needs: Yes Female Reproductive History Menstrual Age of Menarche: 10 Physical Exam Vital Signs: Last Vital Signs Pulse 59 03/17/24 10:58 BP 116/80 03/17/24 10:58 Pulse Ox 96 03/17/24 10:58 Oxygen Delivery Method Room Air 03/17/24 10:58 BMI result Body Mass Index 27.7 Const General: cooperative Nutritional Appearance: overweight Orientation/consciousness: patient oriented x3 Neck Neck: Yes full ROM and Yes supple Resp Effort & Inspection: normal respiratory effort and able to speak in complete sentences Neuro Other: Motor - 5/5 in all Mild weakness in left foot dorsiflexion General: patient oriented x3 and moves all extremities Cranial nerves: Yes CN's II-XII intact bilaterally Cognition (Neuro): normal cognition Motor exam (neuro): 5/5 motor strength present throughout (Left lower extremity strength 4/5), Pronator motor function not present and no tremor noted Deep tendon reflexes (DTR's): Right triceps reflex intensity grade: 2+, Left triceps reflex intensity grade: 2+, Rt Biceps (C5, C6): 2+, Left biceps reflex intensity grade: 2+, Right brachioradialis reflex intensity grade: 2+, Left brachioradialis reflex intensity grade: 2+, Right patellar reflex intensity grade: 3+ and Left patellar reflex intensity grade: 3+ Extrem General: Yes muscle atrophy (left lower extremity) Psych Appearance: grossly normal Mental Status: mental status grossly normal Affect: normal affect Attitude: cooperative Assessment & Plan Assessment & Plan (1) Left foot drop: Comment: peroneal neuropathy Code(s): M21.372 - Foot drop, left foot Category: Medical (2) Degenerative disc disease, lumbar: Code(s): M51.36 - Other intervertebral disc degeneration, lumbar region Category: Medical Qualifiers: Disc-related pain type: without discogenic back pain or lower extremity pain Qualified Code(s): M51.369 - Other intervertebral disc degeneration, lumbar region without mention of lumbar back pain or lower extremity pain (3) Obstructive sleep apnea hypopnea, severe: Code(s): G47.33 - Obstructive sleep apnea (adult) (pediatric) Category: Medical Plan: AHI 30 O2 dennis 64 % Plan Continue exercise Avoid crossing legs SHe declines CPAP or management of sleep apnea. Coding Level of Care Code Est Pt Level 4 (10684) Complex EM visit Add On G2211 Diagnoses Left foot drop M21.372 Degeneration of intervertebral disc of lumbar region without discogenic back pain or lower extremity pain M51.369 Disc-related pain type: without discogenic back pain or lower extremity pain Obstructive sleep apnea hypopnea, severe G47.33
== END 2024-03-17 11:22 | disposition home or self-care (01) ==
LOC: HO.HSMS 10:56
PROVIDERS: PCP Internal Medicine; Visit Provider Psychiatry & Neurology Neurology
DX: M21.372 Foot drop, left foot (principal); M51.369 Other intervertebral disc degeneration, lumbar region without mention of lumbar back pain or lower extremity pain; G47.33 Obstructive sleep apnea (adult) (pediatric)
CPT/HCPCS: 99214; G2211

== ENCOUNTER → 2024-03-17 10:55 | Outpatient (BNVA) | payer OTHER, SELFPAY | PROVIDERS: PCP Internal Medicine; Visit Provider Psychiatry & Neurology Neurology | DX: M21.372 Foot drop, left foot (principal); M51.369 Other intervertebral disc degeneration, lumbar region without mention of lumbar back pain or lower extremity pain; G47.33 Obstructive sleep apnea (adult) (pediatric) | CPT/HCPCS: 99212 ==

== ENCOUNTER → 2024-03-24 23:59 | Outpatient (BNV) | payer OTHER, SELFPAY ==
--- NOTE | 2024-03-26 12:58 | A.OFFVIS_ITS ---
Intake Visit Reasons: Remote ILR check- [employer] Allergies No Known Allergies [No Known Allergies*] Allergy (Verified 03/17/24 11:01) [facility] Medical History (Updated 03/17/24 @ 11:20 by Barbara Méndez MD) Obstructive sleep apnea hypopnea, severe Implantable loop recorder present Hx of atrial fibrillation, no current medication Lesion of skin of scalp Degenerative disc disease, lumbar Left foot drop Depression, major, in remission Menopause Vitamin D deficiency Lumbar disc herniation with radiculopathy Lumbar nerve root impingement 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 Brother HTN (hypertension) Sister HTN (hypertension) Son Mental health disorder Daughter No problems noted. Social History Housing: House Patient Tobacco Use Status: Never used Tobacco e-Cigarette/Vaping Use: Never Used Advance Directives Date on File: 07/09/19 service: No Current occupational status: employed and retired Cognitive needs: No Hearing needs: No Vision needs: Yes Female Reproductive History Menstrual Age of Menarche: 10 Office Procedures Cardiac Device Check Cardiac Device Check Details: Remote implantable loop recorder report generated 03/24/2024. Total burden of atrial fibrillation at 1.7% over the last month. No pauses noted [id number] Cardiac Interrogation, subcut cardiac rhythm monitor Procedure code (CPT) selection complete Assessment & Plan Assessment & Plan (1) Implantable loop recorder present: Comment: Placed 07/27/[address] Hurley Code(s): Z95.818 - Presence of other cardiac implants and grafts Category: Medical Plan: SeeSee above above Coding Level of Care Code Procedure Only Diagnoses Implantable loop recorder present Z95.818 CPT Codes Cardiac Device Check - Cardiac Device 16: [id number] Cardiac Interrogation, subcut cardiac rhythm monitor ([id number])
== END ==
PROVIDERS: PCP Internal Medicine; Visit Provider Internal Medicine Cardiovascular Disease
DX: Z45.09 Encounter for adjustment and management of other cardiac device (principal)
CPT/HCPCS: 93298

== ENCOUNTER 2024-04-07 13:46 | Outpatient (AMB) | payer OTHER, SELFPAY ==
[2024-04-07 13:49] VITALS: BP 116/74; PULSE 58; BMI 27.1
--- NOTE | 2024-04-07 13:49 | MHC.OFFVIS ---
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 Allergies No Known Allergies [No Known Allergies*] Allergy (Verified 03/17/24 11:01) Medication List - Last Reconciled 04/07/24 by Lee Hurley MD apixaban (Eliquis) 5 mg PO BID 30 days atorvastatin 40 mg PO DAILY cholecalciferol (vitamin D3) 50 mcg PO DAILY citalopram 40 mg PO DAILY clobetasol 0.05% 1 appl topical DAILY 30 weeks estradiol 0.01%(0.1mg/gram) pea-sized to urethra 2 times a week; alternate with clobetasol cream 30 days magnesium gluconate 250 mg PO BID metoprolol tartrate 50 mg PO BID 30 days [multivitamin 1 tab PO DAILY] progesterone micronized 100 mg PO BEDTIME 90 days HPI Comments Details: Sweetie comes for follow-up. She is not having any prolonged symptoms of palpitation anymore since being on metoprolol. This is been diagnose as presence of atrial fibrillation. She still has probably rate control atrial fibrillation. She says she has to get with the palpitation chest burning. She still gets onset of chest burning but then this subsides quickly mostly happening at rest. No exertional. Her myocardial perfusion imaging in August was within normal limits. Her cardiac MRI shows no evidence of infiltrative disorder which shows mild asymmetric septal hypertrophy. She has no heart failure symptoms. Denies any bleeding issues or neurologic events. Takes all her medications. Complains of fatigue. Says has not been exercising much. 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 Brother HTN (hypertension) Sister HTN (hypertension) Son Mental health disorder Daughter No problems noted. Social History Housing: House Patient Tobacco Use Status: Never used Tobacco e-Cigarette/Vaping Use: Never Used Advance Directives Date on File: 07/09/19 service: No Current occupational status: employed and retired Cognitive needs: No Hearing needs: No Vision needs: Yes Female Reproductive History Menstrual Age of Menarche: 10 Review of Systems Const Denies chills, Denies fatigue, Denies fever(s), Denies frequent falls, Denies weakness, Denies weight gain and Denies weight loss ENT Denies dizziness Card Denies chest pain, Denies leg edema, Denies lightheadedness, Denies palpitations, Denies dyspnea, Denies dyspnea on exertion, Denies orthopnea and Denies other (loss of consciousness) Resp Denies cough, Denies dyspnea and Denies dyspnea on exertion GI Denies hematochezia and Denies change in stool character Musc Denies abnormal gait, Denies muscle weakness, Denies numbness, Denies radiating pain into limb and Denies tingling Neuro Denies Abnormal speech present, Denies abnormal gait, Denies dizziness, Denies frequent falls, Denies numbness, Denies tingling and Denies weakness Endo Denies fatigue and Denies palpitations Physical Exam Vital Signs: Last Vital Signs Pulse 58 04/07/24 13:49 BP 116/74 04/07/24 13:49 BMI result Body Mass Index 27.1 Const General: cooperative, comfortable, no acute distress, alert and awake Nutritional Appearance: overweight Orientation/consciousness: patient oriented x3 Limitations: no limitations HEENT Head: Yes normocephalic and Yes atraumatic Neck Neck: Yes trachea midline, Yes supple and Yes no JVD Resp Effort & Inspection: normal respiratory effort Auscultation: clear to auscultation bilaterally Cardio Jugular venous distension: no JVD Palpation: normal PMI Rate: regular rate Rhythm: regular rhythm Heart sounds: S1 normal heart sound present, S2 normal heart sound present, no click, no gallops, no murmurs and no rubs GI Auscultation: normal bowel sounds Skin General skin exam: no rashes or lesions noted Neuro General: patient oriented x3 and no focal motor deficits Speech: No Abnormal speech present Extrem General: Yes no clubbing, cyanosis or edema Psych Appearance: grossly normal Office Procedures Cardiac Device Check Cardiac Device Check Details: Implantable loop recorder in place. No recent episodes of atrial fibrillation. Battery life is adequate. [id number] Cardiac Device Check, subcut cardiac rhythm monitor Procedure code (CPT) selection complete EKG Details: EKG shows sinus bradycardia with nonspecific T-wave changes [id number], Complete Assessment & Plan Assessment & Plan (1) Paroxysmal atrial fibrillation: Code(s): I48.0 - Paroxysmal atrial fibrillation Category: Medical Plan: Paroxysmal atrial fibrillation with much improved symptoms with rhythm control approach on current metoprolol therapy. No indication for antiarrhythmic drug therapy at this point time. Continue metoprolol therapy. This can potentially cause symptoms fatigue although unlikely that she is having issues. Chest burning is most likely related to atrial fibrillation with no evidence of myocardial ischemia by myocardial perfusion imaging. Continue full oral anticoagulation, currently on Eliquis 5 mg b.i.d.. Semi annual renal function test is recommended. Encouraged to increase activity level as tolerated. Avoidance of stimulants was discussed. Stress mitigation strategies were discussed. He was no evidence of infiltrative disorder by cardiac MRI. (2) Implantable loop recorder present: Comment: Placed 07/27/[address] Hurley Code(s): Z95.818 - Presence of other cardiac implants and grafts Category: Medical Plan: Implantable loop recorder in place. Will follow remotely monthly. If no recurrent events will discuss about explanting the loop recorder. This was discussed with her. Follow up in the clinic in 6 months time with an EKG. Thank you for allowing me to partake in her care Coding Level of Care Code Est Pt Level 4 (60145) Complex EM visit Add On G2211 Diagnoses Paroxysmal atrial fibrillation I48.0 Implantable loop recorder present Z95.818 CPT Codes Cardiac Device Check - Cardiac Device 7: [id number]-ZI Cardiac Device Check, subcut cardiac rhythm monitor ([id number]) EKG - CPT: 70140-Cwonvgknoeitukqva, Complete ([id number])
== END 2024-04-07 14:18 | disposition home or self-care (01) ==
PROVIDERS: PCP Internal Medicine; Visit Provider Internal Medicine Cardiovascular Disease
DX: I48.0 Paroxysmal atrial fibrillation (principal); Z95.818 Presence of other cardiac implants and grafts
CPT/HCPCS: 93010; 93285; 99214; G2211

== ENCOUNTER → 2024-04-07 13:46 | Outpatient (BNVA) | payer OTHER, SELFPAY | PROVIDERS: PCP Internal Medicine; Visit Provider Internal Medicine Cardiovascular Disease | DX: Z45.09 Encounter for adjustment and management of other cardiac device (principal); I48.0 Paroxysmal atrial fibrillation | CPT/HCPCS: 93005; 99212 ==

== ENCOUNTER → 2024-05-14 23:59 | Outpatient (BNV) | payer OTHER, SELFPAY ==
--- NOTE | 2024-04-29 15:16 | A.OFFVIS_ITS ---
Intake Visit Reasons: Remote ILR- [employer] Allergies No Known Allergies [No Known Allergies*] Allergy (Verified 03/17/24 11:01) [facility] Medical History Paroxysmal atrial fibrillation New onset atrial fibrillation Obstructive sleep apnea hypopnea, severe Implantable loop recorder present Hx of atrial fibrillation, no current medication Lesion of skin of scalp Degenerative disc disease, lumbar Left foot drop Depression, major, in remission Menopause Vitamin D deficiency Lumbar disc herniation with radiculopathy Lumbar nerve root impingement 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 Brother HTN (hypertension) Sister HTN (hypertension) Son Mental health disorder Daughter No problems noted. Social History Housing: House Patient Tobacco Use Status: Never used Tobacco e-Cigarette/Vaping Use: Never Used Advance Directives Date on File: 07/09/19 service: No Current occupational status: employed and retired Cognitive needs: No Hearing needs: No Vision needs: Yes Female Reproductive History Menstrual Age of Menarche: 10 Office Procedures Cardiac Device Check Cardiac Device Check Details: Remote implantable loop recorder report generated 04/24/2024. No arrhythmias or pauses noted [id number] Cardiac Interrogation, subcut cardiac rhythm monitor Procedure code (CPT) selection complete Assessment & Plan Assessment & Plan (1) Implantable loop recorder present: Comment: Placed 07/27/[address] Hurley Code(s): Z95.818 - Presence of other cardiac implants and grafts Category: Medical Plan: See above Coding Level of Care Code Procedure Only Diagnoses Implantable loop recorder present Z95.818 CPT Codes Cardiac Device Check - Cardiac Device 16: [id number] Cardiac Interrogation, subcut cardiac rhythm monitor ([id number])
== END ==
PROVIDERS: PCP Internal Medicine; Visit Provider Internal Medicine Cardiovascular Disease
DX: Z45.09 Encounter for adjustment and management of other cardiac device (principal)
CPT/HCPCS: 93298

== ENCOUNTER → 2024-05-25 23:59 | Outpatient (BNV) | payer OTHER, SELFPAY ==
--- NOTE | 2024-06-01 16:20 | MHC.OFFVIS ---
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 Brother HTN (hypertension) Sister HTN (hypertension) Son Mental health disorder Daughter No problems noted. Social History Housing: House Patient Tobacco Use Status: Never used Tobacco e-Cigarette/Vaping Use: Never Used Advance Directives Date on File: 07/09/19 service: No Current occupational status: employed and retired Cognitive needs: No Hearing needs: No Vision needs: Yes Female Reproductive History Menstrual Age of Menarche: 10 Office Procedures Cardiac Device Check Cardiac Device Check Details: Remote implantable loop recorder report generated 05/25/2024. Total burden of atrial fibrillation 2.9%. [id number] Cardiac Interrogation, subcut cardiac rhythm monitor Procedure code (CPT) selection complete Assessment & Plan Assessment & Plan (1) Implantable loop recorder present: Comment: Placed 07/27/[address] Hurley Code(s): Z95.818 - Presence of other cardiac implants and grafts Category: Medical Plan: See above Coding Level of Care Code Procedure Only Diagnoses Implantable loop recorder present Z95.818 CPT Codes Cardiac Device Check - Cardiac Device 16: [id number] Cardiac Interrogation, subcut cardiac rhythm monitor ([id number])
== END ==
PROVIDERS: PCP Internal Medicine; Visit Provider Internal Medicine Cardiovascular Disease
DX: I48.91 Unspecified atrial fibrillation (principal); Z95.818 Presence of other cardiac implants and grafts
CPT/HCPCS: 93298

== ENCOUNTER → 2024-06-25 23:59 | Outpatient (BNV) | payer MEDICARE, SELFPAY ==
--- NOTE | 2024-06-29 10:59 | A.OFFVIS_ITS ---
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 Brother HTN (hypertension) Sister HTN (hypertension) Son Mental health disorder Daughter No problems noted. Social History Housing: House Patient Tobacco Use Status: Never used Tobacco e-Cigarette/Vaping Use: Never Used Advance Directives Date on File: 07/09/19 service: No Current occupational status: employed and retired Cognitive needs: No Hearing needs: No Vision needs: Yes Female Reproductive History Menstrual Age of Menarche: 10 Office Procedures Cardiac Device Check Cardiac Device Check Details: Remote implantable loop recorder report generated 06/26/2024. No arrhythmias or pauses noted [id number] Cardiac Interrogation, subcut cardiac rhythm monitor Procedure code (CPT) selection complete Assessment & Plan Assessment & Plan (1) Implantable loop recorder present: Comment: Placed 07/27/[address] Hurley Code(s): Z95.818 - Presence of other cardiac implants and grafts Category: Medical Plan: See above Coding Level of Care Code Procedure Only Diagnoses Implantable loop recorder present Z95.818 CPT Codes Cardiac Device Check - Cardiac Device 16: [id number] Cardiac Interrogation, subcut cardiac rhythm monitor ([id number])
== END ==
PROVIDERS: PCP Internal Medicine; Visit Provider Internal Medicine Cardiovascular Disease
DX: Z45.09 Encounter for adjustment and management of other cardiac device (principal)
CPT/HCPCS: 93298

== ENCOUNTER → 2024-07-07 23:59 | Outpatient (BNV) | payer MEDICARE, SELFPAY ==
--- NOTE | 2024-07-13 15:49 | MHC.OFFVIS ---
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 Brother HTN (hypertension) Sister HTN (hypertension) Son Mental health disorder Daughter No problems noted. Social History Housing: House Patient Tobacco Use Status: Never used Tobacco e-Cigarette/Vaping Use: Never Used Advance Directives Date on File: 07/09/19 service: No Current occupational status: employed and retired Cognitive needs: No Hearing needs: No Vision needs: Yes Female Reproductive History Menstrual Age of Menarche: 10 Office Procedures Cardiac Device Check Cardiac Device Check Details: Remote implantable loop recorder report generated 07/01/2024. No episodes of pauses noted. Total burden of atrial fibrillation 5% [id number] Cardiac Interrogation, subcut cardiac rhythm monitor Procedure code (CPT) selection complete Assessment & Plan Assessment & Plan (1) Implantable loop recorder present: Comment: Placed 07/27/[address] Hurley Code(s): Z95.818 - Presence of other cardiac implants and grafts Category: Medical Plan: See above Coding Level of Care Code Procedure Only Diagnoses Implantable loop recorder present Z95.818 CPT Codes Cardiac Device Check - Cardiac Device 16: [id number] Cardiac Interrogation, subcut cardiac rhythm monitor ([id number])
== END ==
PROVIDERS: PCP Internal Medicine; Visit Provider Internal Medicine Cardiovascular Disease
DX: I48.91 Unspecified atrial fibrillation (principal); Z95.818 Presence of other cardiac implants and grafts
CPT/HCPCS: 93298

== ENCOUNTER → 2024-07-26 23:59 | Outpatient (BNV) | payer MEDICARE, SELFPAY ==
--- NOTE | 2024-07-29 15:00 | A.OFFVIS_ITS ---
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 Brother HTN (hypertension) Sister HTN (hypertension) Son Mental health disorder Daughter No problems noted. Social History Housing: House Patient Tobacco Use Status: Never used Tobacco e-Cigarette/Vaping Use: Never Used Advance Directives Date on File: 07/09/19 service: No Current occupational status: employed and retired Cognitive needs: No Hearing needs: No Vision needs: Yes Female Reproductive History Menstrual Age of Menarche: 10 Office Procedures Cardiac Device Check Cardiac Device Check Details: Remote implantable loop recorder report generated 07/26/2024. Total burden of atrial fibrillation at 1.8%. No pauses noted. [id number]-Blqkvz Cardiac Interrogation, subcut cardiac rhythm monitor Procedure code (CPT) selection complete Assessment & Plan Assessment & Plan (1) Implantable loop recorder present: Comment: Placed 07/27/[address] Hurley Code(s): Z95.818 - Presence of other cardiac implants and grafts Category: Medical Plan: See above Coding Level of Care Code Procedure Only Diagnoses Implantable loop recorder present Z95.818 CPT Codes Cardiac Device Check - Cardiac Device 16: [id number] Cardiac Interrogation, subcut cardiac rhythm monitor ([id number])
== END ==
PROVIDERS: PCP Internal Medicine; Visit Provider Internal Medicine Cardiovascular Disease
DX: I48.91 Unspecified atrial fibrillation (principal); Z95.818 Presence of other cardiac implants and grafts
CPT/HCPCS: 93298

== ENCOUNTER 2024-07-27 09:24 | Outpatient (REF) | payer MEDICARE, SELFPAY | END 2024-07-27 09:25 | disposition home or self-care (01) | LOC: HO.MAMMO 09:24 | PROVIDERS: PCP Internal Medicine; Visit Provider Internal Medicine | DX: Z12.31 Encounter for screening mammogram for malignant neoplasm of breast (principal) | CPT/HCPCS: 77063; 77067 ==

== ENCOUNTER → 2024-07-27 09:30 | Outpatient (BNV) | payer MEDICARE, SELFPAY | PROVIDERS: PCP Internal Medicine; Visit Provider Internal Medicine | DX: Z12.31 Encounter for screening mammogram for malignant neoplasm of breast (principal) | CPT/HCPCS: 77063; 77067 ==

== ENCOUNTER → 2024-09-09 23:59 | Outpatient (BNV) | payer MEDICARE, SELFPAY ==
--- NOTE | 2024-09-09 13:35 | MHC.OFFVIS ---
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 Brother HTN (hypertension) Sister HTN (hypertension) Son Mental health disorder Daughter No problems noted. Social History Housing: House Patient Tobacco Use Status: Never used Tobacco e-Cigarette/Vaping Use: Never Used Advance Directives Date on File: 07/09/19 service: No Current occupational status: employed and retired Cognitive needs: No Hearing needs: No Vision needs: Yes Female Reproductive History Menstrual Age of Menarche: 10 Office Procedures Cardiac Device Check Cardiac Device Check Details: Remote implantable loop recorder report generated 09/07/2024. No pauses noted. Total burden of atrial fibrillation 1.2% [id number] Cardiac Interrogation, subcut cardiac rhythm monitor Procedure code (CPT) selection complete Assessment & Plan Assessment & Plan (1) Implantable loop recorder present: Comment: Placed 07/27/[address] Hurley Code(s): Z95.818 - Presence of other cardiac implants and grafts Category: Medical Plan: See above Coding Level of Care Code Procedure Only Diagnoses Implantable loop recorder present Z95.818 CPT Codes Cardiac Device Check - Cardiac Device 16: [id number] Cardiac Interrogation, subcut cardiac rhythm monitor ([id number])
== END ==
PROVIDERS: PCP Internal Medicine; Visit Provider Internal Medicine Cardiovascular Disease
DX: I48.91 Unspecified atrial fibrillation (principal); Z95.818 Presence of other cardiac implants and grafts
CPT/HCPCS: 93298

== ENCOUNTER 2024-09-10 10:28 | Outpatient (AMB) | payer MEDICARE, SELFPAY ==
--- NOTE | 2024-09-10 10:33 | A.OFFVIS_ITS ---
Intake Visit Reasons: 6m/PVR Intake Note: Patient present today for a 6 month follow up/PVR Urology Meds: Estradiol, Progesterone Allergies to Antibiotic: No Known Allergies Blood Thinner: None PVR:0ml Director Of Advertising Sales Required: No Accompanied by: Self / Same As Patient Allergies No Known Allergies [No Known Allergies*] Allergy (Verified 03/17/24 11:01) HPI Comments Details: Sweetie is a pleasant female. She is seen for the following urologic conditions - bladder cancer - lichen sclerosis - hot flashes Last Botox February 2024 Six-month follow-up PVR 0 Continues to have good response Last time went 18 months between Botox injections Plan six-month follow-up check cysto Has managed lichen sclerosis with combination intermittent topical steroid + estradiol on alternate days Bladder cancer June 2018 low-grade recurrence Longstanding Last TURBT June 2018 with low-grade bladder cancer Longstanding smoking history Underwent BCG therapy Cystoscopy 02/07 NAD, 08/08 NAD, 08/09 NAD, 02/09 NAD, 08/10 NAD, 02/10 NAD Cytology NAD 02/10 Continue with bladder check every 6 months Urgency frequency Non responsive to oral medications Botox performed to bladder in August 2020, 08/08, 10/09, 03/12 Good effect with Botox Lichen sclerosis Vaginal introitus Good response to steroid therapy and estradiol cream on alternating days Continue with [id number] PFSH Medical History Paroxysmal atrial fibrillation New onset atrial fibrillation Obstructive sleep apnea hypopnea, severe Implantable loop recorder present Hx of atrial fibrillation, no current medication Lesion of skin of scalp Degenerative disc disease, lumbar Left foot drop Depression, major, in remission Menopause Vitamin D deficiency Lumbar disc herniation with radiculopathy Lumbar nerve root impingement 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 Brother HTN (hypertension) Sister HTN (hypertension) Son Mental health disorder Daughter No problems noted. Social History Housing: House Patient Tobacco Use Status: Never used Tobacco e-Cigarette/Vaping Use: Never Used Advance Directives Date on File: 07/09/19 service: No Current occupational status: employed and retired Cognitive needs: No Hearing needs: No Vision needs: Yes Female Reproductive History Menstrual Age of Menarche: 10 Review of Systems Const Denies chills and Denies fever(s) Card Reports no additional complaints and Denies syncope Resp Denies cough GI Denies abdominal pain and Denies heartburn Reports as per HPI and Denies change in libido Neuro Denies syncope Psych Denies change in libido Endo Denies change in libido Physical Exam Const General: cooperative, healthy appearing, comfortable and no acute distress Orientation/consciousness: patient oriented x3 HEENT Face and sinus: Yes normal facial exam Mouth: moist mucous membranes Neck Neck: Yes normal visual inspection, Yes full ROM and Yes trachea midline Chest Chest palpation & inspection: normal inspection of the chest Resp Effort & Inspection: normal respiratory effort, able to speak in complete sentences and no respiratory distress GI Inspection: Yes normal to inspection Back/Spine/Pelvis Cervical Spine: normal cervical lordosis Thoracic/Lumbar Spine: thoracic and lumbar spine normal to inspection Skin General skin exam: no rashes or lesions noted Neuro General: patient oriented x3, gait normal, tone normal and moves all extremities Extrem General: Yes normal to inspection and Yes capillary refill normal Assessment & Plan Assessment & Plan (1) Lichen sclerosus of female genitalia: Code(s): N90.4 - Leukoplakia of vulva Category: Medical (2) Overactive bladder: Comment: Botox 08/08 Code(s): N32.81 - Overactive bladder Category: Medical (3) Bladder cancer: Code(s): C67.9 - Malignant neoplasm of bladder, unspecified Category: Medical Plan Continue surveillance Check cysto next visit Patient Instructions: This note is constructed using voice recognition software. While every effort has been made to ensure accuracy home fire alarm installer errors may have been included. Imaging studies, laboratory and physical exam results were discussed and reviewed in detail. No major barriers to patient understanding were identified. An opportunity to ask questions regarding the treatment plan was provided. All questions were answered. The patient expressed understanding and agreement with the above treatment plan. The patient is aware they should contact our office by phone for worsening of th eir current condition or the appearance of new urologic symptoms. Compliance is encouraged with any medications and followup testing that is ordered. It is a privilege to participate in the urologic care of your patient. If you have any questions or concerns regarding treatment for the above conditions, or other urologic issues, please do not hesitate to contact me. The office telephone contact is [phone]. Sincerely, Dr Silverio Richards MD, [facility] - Urology Compassionate Specialist Care for the Genitourinary System Coding Level of Care Code Est Pt Level 3 (69324) Complex EM visit Add On G2211 Diagnoses Lichen sclerosus of female genitalia N90.4 Overactive bladder N32.81 Bladder cancer C67.9
== END 2024-09-10 11:04 | disposition home or self-care (01) ==
LOC: HO.HUSH 10:29
PROVIDERS: PCP Internal Medicine; Visit Provider Urology
DX: N90.4 Leukoplakia of vulva (principal); N32.81 Overactive bladder; C67.9 Malignant neoplasm of bladder, unspecified; Z13.9 Encounter for screening, unspecified
CPT/HCPCS: 99213; G2211

== ENCOUNTER → 2024-09-10 10:28 | Outpatient (BNVA) | payer MEDICARE, SELFPAY | PROVIDERS: PCP Internal Medicine; Visit Provider Urology | DX: C67.9 Malignant neoplasm of bladder, unspecified (principal); N90.4 Leukoplakia of vulva; N95.1 Menopausal and female climacteric states; R23.2 Flushing; N32.81 Overactive bladder | CPT/HCPCS: 51798; 81003; 99212 ==

== ENCOUNTER 2024-09-22 11:11 | Outpatient (AMB) | payer MEDICARE, SELFPAY ==
--- NOTE | 2024-09-22 11:25 | MHC.OFFVIS ---
Vital Signs 09/22/24 11:26 Height 5 ft 8 in Weight 176 lb 5.917 oz BMI 26.8 BP 120/74 Blood Pressure Location Lt brachial Position Sitting Pulse 54 Intake Visit Reasons: 6m follow up Intake Note: 6 month follow-up ekg feeling good Unit Support Representative Required: No Allergies No Known Allergies [No Known Allergies*] Allergy (Verified 03/17/24 11:01) Medication List - Last Reconciled 09/22/24 by Lee Hurley MD apixaban (Eliquis) 5 mg PO BID atorvastatin 40 mg PO DAILY cholecalciferol (vitamin D3) 50 mcg PO DAILY citalopram 40 mg PO DAILY clobetasol 0.05% 1 appl topical DAILY 30 weeks estradiol 0.01%(0.1mg/gram) pea-sized to urethra 2 times a week; alternate with clobetasol cream 30 days magnesium gluconate 250 mg PO BID metoprolol tartrate 50 mg PO BID [multivitamin 1 tab PO DAILY] progesterone micronized 100 mg PO BEDTIME 90 days HPI Comments Details: Sweetie comes for follow-up. Overall she feels well. She says she does still feel episodes of atrial fibrillation but she is not having as much symptoms as she was in the past. The symptoms and much more subtle as well as less frequent. Overall on the implantable loop recorder recording total burden of 1.2%. She denies any heart failure symptoms. Denies any chest pain. No bleeding issues or neurologic events. Takes all her medications. 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 Brother HTN (hypertension) Sister HTN (hypertension) Son Mental health disorder Daughter No problems noted. Social History Housing: House Patient Tobacco Use Status: Never used Tobacco e-Cigarette/Vaping Use: Never Used Advance Directives Date on File: 07/09/19 service: No Current occupational status: employed and retired Cognitive needs: No Hearing needs: No Vision needs: Yes Female Reproductive History Menstrual Age of Menarche: 10 Review of Systems Const Denies chills, Denies fatigue, Denies fever(s), Denies frequent falls, Denies weakness, Denies weight gain and Denies weight loss ENT Denies dizziness Card Denies chest pain, Denies leg edema, Denies lightheadedness, Denies palpitations, Denies dyspnea, Denies dyspnea on exertion, Denies orthopnea and Denies other (loss of consciousness) Resp Denies cough, Denies dyspnea and Denies dyspnea on exertion GI Denies hematochezia and Denies change in stool character Musc Denies abnormal gait, Denies muscle weakness, Denies numbness, Denies radiating pain into limb and Denies tingling Neuro Denies Abnormal speech present, Denies abnormal gait, Denies dizziness, Denies frequent falls, Denies numbness, Denies tingling and Denies weakness Endo Denies fatigue and Denies palpitations Physical Exam Vital Signs: Last Vital Signs Pulse 54 09/22/24 11:26 BP 120/74 09/22/24 11:26 BMI result Body Mass Index 26.8 Const General: cooperative, comfortable, no acute distress, alert and awake Nutritional Appearance: overweight Orientation/consciousness: patient oriented x3 Limitations: no limitations HEENT Head: Yes normocephalic and Yes atraumatic Neck Neck: Yes trachea midline, Yes supple and Yes no JVD Resp Effort & Inspection: normal respiratory effort Auscultation: clear to auscultation bilaterally Cardio Jugular venous distension: no JVD Palpation: normal PMI Rate: regular rate Rhythm: regular rhythm Heart sounds: S1 normal heart sound present, S2 normal heart sound present, no click, no gallops, no murmurs and no rubs GI Auscultation: normal bowel sounds Skin General skin exam: no rashes or lesions noted Neuro General: patient oriented x3 and no focal motor deficits Speech: No Abnormal speech present Extrem General: Yes no clubbing, cyanosis or edema Psych Appearance: grossly normal Office Procedures EKG Details: EKG shows sinus bradycardia with low-voltage QRS with nonspecific ST T wave changes suggestive of repolarization abnormality [id number], Complete Assessment & Plan Assessment & Plan (1) Paroxysmal atrial fibrillation: Code(s): I48.0 - Paroxysmal atrial fibrillation Category: Medical Plan: Highly symptomatic paroxysmal atrial fibrillation with much improved symptoms on current medical therapy with metoprolol with much subdued symptoms. She still having episodes of atrial fibrillation although these are not as bothersome. Continue metoprolol therapy. Continue rhythm control approach. Although burden is very small will avoid antiarrhythmic drug therapy unless she has increasing symptoms. Advised her to log her symptoms. Avoidance of stimulants was discussed. Continue full oral anticoagulation, currently on Eliquis 5 mg b.i.d.. Follow-up echocardiogram in 6 months time. (2) Implantable loop recorder present: Comment: Placed 07/27/[address] Hurley Code(s): Z95.818 - Presence of other cardiac implants and grafts Category: Medical Plan: Implantable loop recorder in place with improved burden of atrial fibrillation noted. No further indication to have the implantable loop recorder. Will schedule her for removal. Will stop Eliquis a day before the removal. Risks and benefits were discussed. Will follow up in the clinic in 6 months time with me. Thank you for allowing me to partake in her care Coding Level of Care Code Est Pt Level 4 (02846) Complex EM visit Add On G2211 Diagnoses Paroxysmal atrial fibrillation I48.0 Implantable loop recorder present Z95.818 CPT Codes EKG - CPT: 73494-Bnhroxiruiyobvfre, Complete ([id number])
[2024-09-22 11:26] VITALS: BP 120/74; PULSE 54; BMI 26.8
== END 2024-09-22 12:52 | disposition home or self-care (01) ==
LOC: HO.HCS 11:12
PROVIDERS: PCP Internal Medicine; Visit Provider Internal Medicine Cardiovascular Disease
DX: I48.0 Paroxysmal atrial fibrillation (principal); Z95.818 Presence of other cardiac implants and grafts
CPT/HCPCS: 93010; 99214; G2211

== ENCOUNTER → 2024-09-22 11:11 | Outpatient (BNVA) | payer MEDICARE, SELFPAY | PROVIDERS: PCP Internal Medicine; Visit Provider Internal Medicine Cardiovascular Disease | DX: I48.0 Paroxysmal atrial fibrillation (principal); Z95.818 Presence of other cardiac implants and grafts | CPT/HCPCS: 93005; 99212 ==

== ENCOUNTER 2024-09-25 13:58 | Outpatient (REF) | payer MEDICARE, SELFPAY ==
[2024-09-25 13:57] VITALS: BP 134/76; PULSE 59; RESP 16; TEMP 36.2; O2SAT 96; BMI 27.4
--- NOTE | 2024-09-25 14:47 | P.BOP_ITS ---
Brief Operative Note Date of Service: 09/25/24 Pre-op diagnosis: Implantable loop recorder in place Post-op diagnosis: same Procedure: Removal of implantable loop recorder Implants: After obtaining informed consent patient was in the minor surgery suite. Patient was laid in supine position on the operating table. Could not identified or palpate the implantable loop recorder. It was felt preoperative that the recorder at migrated. At that point time we made a informed guess to make a scar little insight her original scar. The area was infiltrative with 2% lidocaine with epinephrine. A small scar was then made. The subcutaneous area was then probed with a Mine forcep. However the implantable loop recorder could not be retrieved. Patient started having discomfort and the procedure was aborted. The wound was then closed with Steri-Strips and pressure dressing applied Surgeon: Lee Hurley MD Anesthesia: local Was an Hostess Cashier used for this Procedure?: No Estimated blood loss (mL): 10 Pathology: none sent Condition: stable Disposition: same day Complications (if any): No complications were noted however this procedure will need to be reperformed under fluoroscopy guidance
== END 2024-09-25 13:59 | disposition home or self-care (01) ==
LOC: HO.MS 13:58
PROVIDERS: PCP Internal Medicine; Visit Provider Internal Medicine Cardiovascular Disease
PROC: (CPT 33285; principal; 2024-09-25 14:00)
DX: Z45.09 Encounter for adjustment and management of other cardiac device (principal); Z95.818 Presence of other cardiac implants and grafts; Z53.8 Procedure and treatment not carried out for other reasons
CPT/HCPCS: 33286; J2004

== ENCOUNTER → 2024-09-25 13:58 | Outpatient (BNV) | payer MEDICARE, SELFPAY | PROVIDERS: PCP Internal Medicine; Visit Provider Internal Medicine Cardiovascular Disease | DX: Z45.09 Encounter for adjustment and management of other cardiac device (principal) | CPT/HCPCS: 33286 ==

== ENCOUNTER → 2024-09-26 23:59 | Outpatient (BNV) | payer MEDICARE, SELFPAY ==
--- NOTE | 2024-09-30 18:02 | A.OFFVIS_ITS ---
Intake Visit Reasons: Remote ILR- [employer] Allergies No Known Allergies [No Known Allergies*] Allergy (Verified 03/17/24 11:01) [facility] Medical History (Updated 09/22/24 @ 12:25 by Lee Hurley MD) Hx of atrial fibrillation, no current medication Paroxysmal atrial fibrillation New onset atrial fibrillation Obstructive sleep apnea hypopnea, severe Implantable loop recorder present Lesion of skin of scalp Degenerative disc disease, lumbar Left foot drop Depression, major, in remission Menopause Vitamin D deficiency Lumbar disc herniation with radiculopathy Lumbar nerve root impingement 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 Brother HTN (hypertension) Sister HTN (hypertension) Son Mental health disorder Daughter No problems noted. Social History Housing: House Patient Tobacco Use Status: Never used Tobacco e-Cigarette/Vaping Use: Never Used Advance Directives Date on File: 07/09/19 service: No Current occupational status: employed and retired Cognitive needs: No Hearing needs: No Vision needs: Yes Female Reproductive History Menstrual Age of Menarche: 10 Office Procedures EKG Details: Remote implantable loop recorder report generated 09/26/2024. No pauses noted. Total burden of atrial fibrillation at 2.4%, not significantly different [id number], Complete Assessment & Plan Assessment & Plan (1) Implantable loop recorder present: Comment: Placed 07/27/[address] Hurley Code(s): Z95.818 - Presence of other cardiac implants and grafts Category: Medical Plan: See above Coding Level of Care Code Procedure Only Diagnoses Implantable loop recorder present Z95.818 CPT Codes EKG - CPT: 31439-Rwugvzimzesyyitlj, Complete ([id number])
== END ==
PROVIDERS: PCP Internal Medicine; Visit Provider Internal Medicine Cardiovascular Disease
DX: I48.91 Unspecified atrial fibrillation (principal); Z95.818 Presence of other cardiac implants and grafts
CPT/HCPCS: 93298

== ENCOUNTER 2024-10-02 09:25 | Outpatient (AMB) | payer MEDICARE, SELFPAY ==
[2024-10-02 09:47] VITALS: BP 120/72; PULSE 56; BMI 26.7
--- NOTE | 2024-10-02 09:47 | A.OFFVIS_ITS ---
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: No Allergies No Known Allergies [No Known Allergies*] Allergy (Verified 10/02/24 09:49) Medication List - Last Reconciled 10/02/24 by Kayley De La Torre NP-C apixaban (Eliquis) 5 mg PO BID atorvastatin 40 mg PO DAILY cholecalciferol (vitamin D3) 50 mcg PO DAILY citalopram 40 mg PO DAILY clobetasol 0.05% 1 appl topical DAILY 30 weeks estradiol 0.01%(0.1mg/gram) pea-sized to urethra 2 times a week; alternate with clobetasol cream 30 days magnesium gluconate 250 mg PO BID metoprolol tartrate 50 mg PO BID [multivitamin 1 tab PO DAILY] progesterone micronized 100 mg PO BEDTIME 90 days HPI HPI wound check post ILR: Details: Marti is a 64-year-old female with past medical history of hyperlipidemia, impaired fasting glucose, sleep apnea, paroxysmal atrial fibrillation, implanted loop recorder who recently underwent attempted ILR removal which was unsuccessful. Today she reports that Dr. Hurley was not able to retrieve the ILR as it had migrated away from the original insertion site. She has minor soreness at the site. She tells me that the ILR will be removed in the OR in the near future. No concerning symptoms overall. She denies exertional chest discomfort, shortness of breath, or concerning heart palpitations. She reports compliance with all her medications. [facility] Medical History Hx of atrial fibrillation, no current medication Paroxysmal atrial fibrillation New onset atrial fibrillation Obstructive sleep apnea hypopnea, severe Implantable loop recorder present Lesion of skin of scalp Degenerative disc disease, lumbar Left foot drop Depression, major, in remission Menopause Vitamin D deficiency Lumbar disc herniation with radiculopathy Lumbar nerve root impingement 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 Brother HTN (hypertension) Sister HTN (hypertension) Son Mental health disorder Daughter No problems noted. Social History Housing: House Patient Tobacco Use Status: Never used Tobacco e-Cigarette/Vaping Use: Never Used Advance Directives Date on File: 07/09/19 service: No Current occupational status: employed and retired Cognitive needs: No Hearing needs: No Vision needs: Yes Female Reproductive History Menstrual Age of Menarche: 10 Review of Systems Const All systems reviewed & are unremarkable except as noted in HPI and below ENT Denies dizziness Card Details: minor soreness at ILR attempted removal site Denies chest pain, Denies chest pain at rest, Denies chest pain with activity, Denies rapid heart rate, Denies pedal edema, Denies edema, Denies leg edema, Denies lightheadedness, Denies palpitations, Denies dyspnea, Denies dyspnea on exertion and Denies orthopnea Resp Denies cough, Denies dyspnea and Denies dyspnea on exertion GI Denies hematochezia and Denies change in stool character Musc Denies abnormal gait, Denies limited range of motion, Denies muscle cramps, Denies muscle weakness, Denies numbness, Denies radiating pain into limb, Denies stiffness and Denies tingling Neuro Denies abnormal gait, Denies dizziness, Denies numbness and Denies tingling Endo Denies palpitations Physical Exam Vital Signs: Last Vital Signs Pulse 56 10/02/24 09:47 BP 120/72 10/02/24 09:47 BMI result Body Mass Index 26.7 Const General: cooperative, healthy appearing, comfortable and no acute distress Orientation/consciousness: patient oriented x3 Chest Other: ILR attempted removal site left chest, dressing and steri strips removed. Site intact without redness, swelling drainage, wound edges slightly . Area cleaned with antibacterial agent, dried and 2 new steri strips applied. site care reviewed with her. Resp Effort & Inspection: normal respiratory effort Auscultation: clear to auscultation bilaterally, no rales, no rhonchi and no wheezes Cardio Rate: regular rate Rhythm: regular rhythm Heart sounds: S1 normal heart sound present, S2 normal heart sound present, no gallops, no murmurs and no rubs Neuro General: patient oriented x3 Extrem General: Yes normal to inspection Psych Appearance: grossly normal Mental Status: mental status grossly normal Speech and movement: Normal speech and movement present Assessment & Plan Assessment & Plan (1) Implantable loop recorder present: Comment: Placed 07/27/[address] Hurley Code(s): Z95.818 - Presence of other cardiac implants and grafts Category: Medical Plan: ILR remains in place after failed removal removal attempt. Wound site is healing well with no signs of infection or excess bruising.. A further plan for extraction with minimal discomfort and risk will be advanced with Dr. Hurley's input. The patient remains monitored for atrial fibrillation symptoms, with bleeding controlled under anticoagulant precautions. Future device removal and follow-up to be coordinated (2) Paroxysmal atrial fibrillation: Code(s): I48.0 - Paroxysmal atrial fibrillation Category: Medical Plan: History of paroxysmal atrial fibrillation treated with rate control using metoprolol. She is on Eliquis for anticoagulation. No recent palpitations. No med changes made. (3) LVH (left ventricular hypertrophy): Code(s): I51.7 - Cardiomegaly Category: Medical Plan: Last echocardiogram 06/14/2023 shows EF 55-60%, normal RV size and function, moderate LVH, left atrium mildly dilated. Blood pressure currently well controlled. Plan Patient was informed and verbally consented to the use of an ambient scribe for clinic note documentation during this visit. Time spent on chart review, documentation, interview and assessment I discussed with the patient the events leading to the current status of her ILR, including the unsuccessful removal due to migration. We reviewed the possibility of requiring an additional procedure to retrieve the device, outlining the need for patience as plans are refined with Dr. Conley. I assured her of monitoring her condition concerning both the device and atrial fibrillation symptoms. Clarification on the continuation of her current medication and post-operative care measures was reiterated, adding necessary precautions due to her blood thinner usage. The anticipated steps include a collaborative approach to determine the optimal strategy for ILR management, with communication promised upon decisions. Patient Instructions: - Keep the wound site dry; avoid showering directly on it for two days. - Monitor for any signs of increased bleeding from the site. - Maintain caution with bending or physical exertion to prevent wound disruption. - Continue anticoagulation medication as prescribed. - Report any changes in heart palpitations or chest discomfort immediately. - Await communication from our office regarding a plan for ILR removal. - Attend all scheduled follow-ups as advised. Coding Level of Care Code Est Pt Level 3 (71644) Complex EM visit Add On G2211 Diagnoses Implantable loop recorder present Z95.818 Paroxysmal atrial fibrillation I48.0 LVH (left ventricular hypertrophy) I51.7 Time Spent (min) 24
== END 2024-10-02 10:15 | disposition home or self-care (01) ==
LOC: HO.HCS 09:31
PROVIDERS: PCP Internal Medicine; Visit Provider Nurse Practitioner Family
DX: Z95.818 Presence of other cardiac implants and grafts (principal); I48.0 Paroxysmal atrial fibrillation; I51.7 Cardiomegaly
CPT/HCPCS: 99213; G2211

== ENCOUNTER → 2024-10-02 09:25 | Outpatient (BNVA) | payer MEDICARE, SELFPAY | PROVIDERS: PCP Internal Medicine; Visit Provider Nurse Practitioner Family | DX: I48.0 Paroxysmal atrial fibrillation (principal); I51.7 Cardiomegaly; Z95.818 Presence of other cardiac implants and grafts | CPT/HCPCS: 99212 ==

== ENCOUNTER → 2024-10-27 23:59 | Outpatient (BNV) | payer MEDICARE, SELFPAY ==
--- NOTE | 2024-10-30 16:15 | A.OFFVIS_ITS ---
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 Brother HTN (hypertension) Sister HTN (hypertension) Son Mental health disorder Daughter No problems noted. Social History Housing: House Patient Tobacco Use Status: Never used Tobacco e-Cigarette/Vaping Use: Never Used Advance Directives: No Advance Directives Information Provided: Yes Advance Directives Date on File: 07/09/19 service: No Current occupational status: employed and retired Cognitive needs: No Hearing needs: No Vision needs: Yes Female Reproductive History Menstrual Age of Menarche: 10 Office Procedures Cardiac Device Check Cardiac Device Check Details: Remote implantable loop recorder report generated 10/27/2024. One episode of atrial fibrillation with a burden of 1.2% noted [id number] Cardiac Interrogation, subcut cardiac rhythm monitor Procedure code (CPT) selection complete Assessment & Plan Assessment & Plan (1) Implantable loop recorder present: Comment: Placed 07/27/[address] Hurley Code(s): Z95.818 - Presence of other cardiac implants and grafts Category: Medical Plan: See above Coding Level of Care Code Procedure Only Diagnoses Implantable loop recorder present Z95.818 CPT Codes Cardiac Device Check - Cardiac Device 16: [id number] Cardiac Interrogation, subcut cardiac rhythm monitor ([id number])
== END ==
PROVIDERS: PCP Internal Medicine; Visit Provider Internal Medicine Cardiovascular Disease
DX: I48.91 Unspecified atrial fibrillation (principal); Z95.818 Presence of other cardiac implants and grafts
CPT/HCPCS: 93298

== ENCOUNTER → 2024-10-28 12:30 | Outpatient (BNV) | payer MEDICARE, SELFPAY | PROVIDERS: PCP Internal Medicine; Visit Provider Internal Medicine Cardiovascular Disease | DX: Z45.09 Encounter for adjustment and management of other cardiac device (principal) | CPT/HCPCS: 33286 ==

== ENCOUNTER → 2024-10-28 12:30 | Day surgery (SDC) | payer MEDICARE, SELFPAY ==
[2024-10-28 12:41] VITALS: BP 136/89; PULSE 62; RESP 16; TEMP 36.6; O2SAT 96; BMI 26.5
--- NOTE | 2024-10-28 13:32 | MHC.SHP ---
Pre-Procedural Eval Section A - 24 Hr Update-Section A only Date of Service: 10/28/24 The patient is an INPATIENT: No Changes since office visit: Yes Patient answered all questions; No Cold of Flu in the past 2 weeks, No New Medical Problems and No Changes in Medication The patient has been examined within 24 hours of the surgical procedure. The History & Physical has been completed within 30 days and I have reviewed it.: Yes Section B - Complete if H&P > 30 days Chief Complaint: Presence of other cardiac implants and grafts Allergies: Allergies Allergy/AdvReac Type Severity Reaction Status Date / Time No Known Allergies Allergy Verified 10/02/24 09:49 [No Known Allergies*] Plan I have reviewed the history and physical and performed a pertinent physical examination on my patient. No changes have occurred unless specified. Time Spent With Patient Time: Total time managing care of this patient today ____ minutes.
--- NOTE | 2024-10-28 14:01 | P.BOP_ITS ---
Brief Operative Note Date of Service: 10/28/24 Pre-op diagnosis: Implantable loop recorder in place Post-op diagnosis: same Procedure: Removal of implantable loop recorder Implants: After obtaining consent patient was brought to the IR suite and laid on supine on the table. With the help of fluoroscopy the device was then identified in the precordial area. Patient is precordial area was then prepped and draped in a sterile fashion. Patient was then given 1% lidocaine intradermally and subcutaneously around the head of the device. A small incision was then made at the head of the device. The device was then removed with help of a Mine forceps after some blunt dissection. The wound was then closed with Steri- Strips and pressure dressing was then applied. Patient tolerated the procedure well Surgeon: Lee Hurley MD Anesthesia: local Was an Dental Billing Specialist used for this Procedure?: No Estimated blood loss (mL): 5 Pathology: none sent Condition: stable Disposition: same day
== END | disposition home or self-care (01) ==
PROVIDERS: PCP Internal Medicine; Visit Provider Internal Medicine Cardiovascular Disease
DX: Z95.818 Presence of other cardiac implants and grafts (principal)
CPT/HCPCS: 33286; 76000; J2003

== ENCOUNTER 2024-11-02 08:58 | Outpatient (AMB) | payer MEDICARE, SELFPAY ==
[2024-11-02 09:04] VITALS: BP 132/80; PULSE 64; BMI 26.7
--- NOTE | 2024-11-02 09:04 | A.OFFVIS_ITS ---
Vital Signs 11/02/24 09:04 Height 5 ft 8 in Weight 175 lb 14.862 oz BMI 26.7 BP 132/80 Blood Pressure Location Lt brachial Position Sitting Pulse 64 Pulse Source Pulse Oximeter Intake Visit Reasons: Wound check post ilr removal (NS) Medical Data Analyst Required: No Allergies No Known Allergies [No Known Allergies*] Allergy (Verified 11/02/24 09:06) Medication List - Last Reconciled 11/02/24 by Kayley De La Torre NP-C apixaban (Eliquis) 5 mg PO BID atorvastatin 40 mg PO DAILY cholecalciferol (vitamin D3) 50 mcg PO DAILY citalopram 40 mg PO DAILY clobetasol 0.05% 1 appl topical DAILY 30 weeks estradiol 0.01%(0.1mg/gram) pea-sized to urethra 2 times a week; alternate with clobetasol cream 30 days magnesium gluconate 250 mg PO BID metoprolol tartrate 50 mg PO BID [multivitamin 1 tab PO DAILY] progesterone micronized 100 mg PO BEDTIME 90 days HPI HPI Wound check post ilr removal (NS): Details: Marti is a 64-year-old female with past medical history of hyperlipidemia, impaired fasting glucose, sleep apnea, paroxysmal atrial fibrillation, implanted loop recorder who recently underwent ILR removal and now presents for follow up. Today she reports that she has been feeling well since her ILR removal. She says she is relieved to have it out. She states this 2nd procedure was much better for her and did not cause any bruising. She denies having any pain, fevers, drainage from site. No concerning symptoms overall. She denies exertional chest discomfort, shortness of breath, or concerning heart palpitations. She reports compliance with all her medications. 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 Brother HTN (hypertension) Sister HTN (hypertension) Son Mental health disorder Daughter No problems noted. Social History Housing: House Patient Tobacco Use Status: Never used Tobacco e-Cigarette/Vaping Use: Never Used Advance Directives Date on File: 07/09/19 service: No Current occupational status: employed and retired Cognitive needs: No Hearing needs: No Vision needs: Yes Female Reproductive History Menstrual Age of Menarche: 10 Review of Systems Const All systems reviewed & are unremarkable except as noted in HPI and below ENT Denies dizziness Card Denies chest pain, Denies chest pain at rest, Denies chest pain with activity, Denies rapid heart rate, Denies pedal edema, Denies edema, Denies leg edema, Denies lightheadedness, Denies palpitations, Denies dyspnea, Denies dyspnea on exertion and Denies orthopnea Resp Denies cough, Denies dyspnea and Denies dyspnea on exertion GI Denies hematochezia and Denies change in stool character Musc Denies abnormal gait, Reports limited range of motion, Reports muscle cramps, Denies muscle weakness, Denies numbness, Denies radiating pain into limb, Denies stiffness and Denies tingling Neuro Denies abnormal gait, Denies dizziness, Denies numbness and Denies tingling Endo Denies palpitations Physical Exam Vital Signs: Last Vital Signs Pulse 64 11/02/24 09:04 BP 132/80 11/02/24 09:04 BMI result Body Mass Index 26.7 Const General: cooperative, healthy appearing, comfortable and no acute distress Orientation/consciousness: patient oriented x3 Chest Other: ILR attempted removal site left chest, dressing and steri strips removed. Site intact without redness, swelling drainage, wound edges intact. Area cleaned with antibacterial agent, dried and 2 new steri strips applied. site care reviewed with her. Resp Effort & Inspection: normal respiratory effort Auscultation: clear to auscultation bilaterally, no rales, no rhonchi and no wheezes Cardio Rate: regular rate Rhythm: regular rhythm Heart sounds: S1 normal heart sound present, S2 normal heart sound present, no gallops, no murmurs and no rubs Neuro General: patient oriented x3 Extrem General: Yes normal to inspection Psych Appearance: grossly normal Mental Status: mental status grossly normal Speech and movement: Normal speech and movement present Assessment & Plan Assessment & Plan (1) Visit for wound check: Code(s): Z51.89 - Encounter for other specified aftercare Category: Medical Plan: ILR removed 10/28/24. Site healing well without noted complications. Site care reviewed with her. (2) Paroxysmal atrial fibrillation: Code(s): I48.0 - Paroxysmal atrial fibrillation Category: Medical Plan: History of paroxysmal atrial fibrillation treated with rate control using metoprolol. She is on Eliquis for anticoagulation. No recent palpitations. No med changes made. (3) LVH (left ventricular hypertrophy): Code(s): I51.7 - Cardiomegaly Category: Medical Plan: Last echocardiogram 06/14/2023 shows EF 55-60%, normal RV size and function, moderate LVH, left atrium mildly dilated. Blood pressure currently well controlled. Plan During the visit, I discussed with the patient her current condition and the successful removal of the loop recorder. I informed her that the ILR removal procedure had minimal impact, noting the absence of significant bruising or bleeding, which positively affected her comfort and recovery. We reviewed the benefits of her current management plan for atrial fibrillation and hypertension. I highlighted the stable nature of her blood pressure and moderate LVH, emphasizing the importance of adherence to her prescribed antihypertensive regimen to mitigate cardiac remodeling risks.We agreed on the continuation of her current treatment plan and regular follow-ups to ensure sustained management of her conditions. Patient Instructions: - Continue taking prescribed medications for hypertension. - Monitor for any new symptoms or changes in condition. - Attend scheduled follow-up appointments. - Report significant changes or concerns immediately. - Maintain a heart-healthy lifestyle, including dietary and exercise recommendations. Patient was informed and verbally consented to the use of an ambient scribe for clinic note documentation during this visit. Visit time spent on chart review, interview, assessment, orders, documentation. Coding Level of Care Code Est Pt Level 3 (61778) Complex EM visit Add On G2211 Diagnoses Visit for wound check Z51.89 Paroxysmal atrial fibrillation I48.0 LVH (left ventricular hypertrophy) I51.7 Time Spent (min) 22
== END 2024-11-02 09:25 | disposition home or self-care (01) ==
LOC: HO.HCS 08:58
PROVIDERS: PCP Internal Medicine; Visit Provider Nurse Practitioner Family
DX: Z51.89 Encounter for other specified aftercare (principal); I48.0 Paroxysmal atrial fibrillation; I51.7 Cardiomegaly
CPT/HCPCS: 99213; G2211

== ENCOUNTER → 2024-11-02 08:58 | Outpatient (BNVA) | payer MEDICARE, SELFPAY | PROVIDERS: PCP Internal Medicine; Visit Provider Nurse Practitioner Family | DX: Z51.89 Encounter for other specified aftercare (principal); I48.0 Paroxysmal atrial fibrillation; I51.7 Cardiomegaly | CPT/HCPCS: 99212 ==

== ENCOUNTER 2024-11-13 10:38 | Outpatient (REF) | payer MEDICARE, SELFPAY ==
--- OUTSIDE RECORDS SUMMARY | 2024-11-13 11:31 | XMS_ITS | Patient Health Record ---
Author Organization [facility] Address [address] [place] [address] Care Team Providers Care Humidifier Operator Name Role Phone Vamsi DE SANTIAGO, Keesha Primary Care Provider Joe [facility] [phone] Reason For Referral No Information Medications Medication SIG (Take, Route, Frequency, Duration) Notes Start Date End Date Status Multivitamin Active Fish Oil Active Citalopram Hydrobromide 40 MG TAKE 1 TABLET BY MOUTH EVERY DAY Oral for 30 Active Calcium Active Vitamin D Active Atorvastatin Calcium 20 MG TAKE 1 TABLET BY MOUTH EVERY DAY Oral for 30 Active Immunizations Vaccine Route Administration Date Status Comme nts Influenza Unknown 02/17/2019 Administered Problems Problem Type SNOMED Code ICD Code Onset Dates Problem Status W/U Status Risk Notes Problem 472260610 Encounter for screening for malignant neoplasm of colon (Z12.11) Active confirmed Problem 387628370 History of adenomatous polyp of colon (Z86.010) Active confirmed Problem [id number] Preprocedural examination (Z01.818) Active confirmed Plan Of Treatment Future Test Test Name Order Date COLONOSCOPY 04/30/2014 COLONOSCOPY 07/28/2019 Insurance Providers Payer Name Payer Address Payer Phone Subscriber Number Group Number Insured Name Patient Relationship to Insured Coverage Start Date Coverage End Date [employer] [address] [address] [place] [address] [id number] HAZEL FREIRE Self - patient is the insured Medical (General) History Medical History History ICD Code Colonoscopy 03/07/2010--2 cm tubular adenoma removed at that time from the sigmoid colon-she was also noted to have some diverticulosis and internal hemorrhoids Depression Hyperlipidemia Cystoscopy with Dr. Mir, III in 04/2014--precancerous lesions Denies [place],DM,CVA,Lung disease,renal dise ase Renal cysts Bladder cancer 08/2018-cystoscopy Colonoscopy June 2014 with removal o f a small tubular adenoma. Surgical History Surgery Date(Month/Year)
[2024-11-13 11:45] LABS: Estimated Average Glucose 134 mg/dL; Hemoglobin A1c % 6.3 % (<6.0)
[2024-11-13 11:52] LABS: Alanine Aminotransferase 27 U/L (0-31); Anion Gap 11 (12-20); Aspartate Amino Transferase 26 U/L (5-31); Blood Urea Nitrogen 10 mg/dL (9-16); Calcium 9.1 mg/dL (8.4-10.2); Carbon Dioxide 27 mmol/L (22-29); Chloride 105 mmol/L (96-108); Cholesterol 151 mg/dL (<200); Estimated Glomerular Filt Rate > 60; Glucose Fasting 103 mg/dL (60-99); HDL Cholesterol 37 mg/dL (>40); LDL Cholesterol Calculated 83 mg/dL (<100); Potassium 4.2 mmol/L (3.3-5.1); Sodium 139 mmol/L (135-145); Triglycerides 157 mg/dL (<150)
[2024-11-13 12:15] LABS: Vitamin D 25-OH Total 62.9 ng/mL (>30)
== END 2024-11-13 10:39 | disposition home or self-care (01) ==
LOC: HO.LAB 10:38
PROVIDERS: PCP Internal Medicine; Visit Provider Internal Medicine
DX: R73.01 Impaired fasting glucose (principal); E78.00 Pure hypercholesterolemia, unspecified; Z78.0 Asymptomatic menopausal state
CPT/HCPCS: 36415; 80048; 80061; 82306; 83036; 84450; 84460

== ENCOUNTER 2024-11-17 10:56 | Outpatient (AMB) | payer MEDICARE, SELFPAY ==
--- NOTE | 2024-11-17 11:03 | A.OFFPC_ITS ---
Vital Signs 11/17/24 11:10 Height 5 ft 8 in Weight 176 lb BMI 26.8 BP 124/64 Blood Pressure Location Lt brachial Position Sitting Respiration 15 Pulse 62 Pulse Source Pulse Oximeter Temp 98.1 F Temp Source Oral Pulse Oximetry (%) 96 Oxygen Delivery Method Room Air Intake Visit Reasons: PE Intake Note: Pt is here today for her PE: last mammgram 07/27/24, bone density scan 07/17/22, colonoscopy 10/19/2019 Allergies No Known Allergies (No Known Allergies*) Allergy (Verified 11/17/24 11:23) Medication List - Last Reconciled 11/17/24 by Keesha Agustin MD apixaban (Eliquis) 5 mg PO BID atorvastatin 40 mg PO DAILY cholecalciferol (vitamin D3) 50 mcg PO DAILY citalopram 40 mg PO DAILY clobetasol 0.05% 1 appl topical DAILY 30 weeks estradiol 0.01%(0.1mg/gram) pea-sized to urethra 2 times a week; alternate with clobetasol cream 30 days magnesium gluconate 250 mg PO BID metoprolol tartrate 50 mg PO BID [multivitamin 1 tab PO DAILY] progesterone micronized 100 mg PO BEDTIME 90 days Tobacco use date assessed: 11/17/24 Fall risk assessment: No Falls in past year Last assessed Fall Risk: 11/17/24 Dental Screening Dental Screen Date: 11/17/24 Did you have a dental visit in the last 12 months?: No Did you have a dental problem in the last 6 months where you did not have access to dental care?: No Was dental information given to patient?: Patient declined HPI PE HPI Details 64-year-old female with past medical his tory of hyperlipidemia, impaired fasting glucose, sleep apnea, paroxysmal atrial fibrillation, implanted loop recorder who recently underwent ILR removal and now presents for her physical exam. She has been feeling well, denies any pain over surgical site, denies exertional chest discomfort, shortness of breath, or heart palpitations. She reports compliance with all her medications. She is up-to-date with her breast cancer screening with last mammgram 07/27/24 . She had a bone density scan 07/17/22 which showed osteopenia in left femur and lumbar spine normal in left femoral neck, due for repeat DEXA scan this year. She had a colon cancer screening done with colonoscopy 10/19/2019, due again this year, patient states that she received a letter from Dr. Vergara reminding her that she is due for her screening colonoscopy, will make own appointment. She is up-to-date with her Prevnar 20 gets yearly flu shots, and up-to-date with her Tdap, has had 1 shingles vaccine in 2020, reminded to get her 2nd dose, might need to redo the whole vaccine series [facility] Medical History (Updated 11/17/24 @ 12:03 by Keesha Agustin MD) Osteopenia of multiple sites Hx of atrial fibrillation, no current medication Paroxysmal atrial fibrillation New onset atrial fibrillation Obstructive sleep apnea hypopnea, severe Implantable loop recorder present Lesion of skin of scalp Degenerative disc disease, lumbar Left foot drop Depression, major, in remission Menopause Vitamin D deficiency Lumbar disc herniation with radiculopathy Lumbar nerve root impingement 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 Brother HTN (hypertension) Sister HTN (hypertension) Son Mental health disorder Daughter No problems noted. Social History Housing: House Patient Tobacco Use Status: Never used Tobacco e-Cigarette/Vaping Use: Never Used Advance Directives Date on File: 07/09/19 service: No Current occupational status: employed and retired Cognitive needs: No Hearing needs: No Vision needs: Yes Female Reproductive History Menstrual Age of Menarche: 10 Questionnaire PHQ-9 Over the last 2 weeks, how often have you been bothered by any of the following problems? 1. Little interest or pleasure in doing things: several days 2. Feeling down, depressed, or hopeless: not at all 3. Trouble falling or staying asleep, or sleeping too much: several days 4. Feeling tired or having little energy: several days 5. Poor appetite or overeating: not at all 6. Feeling bad about yourself - or that you are a failure or have let yourself or your family down: not at all 7. Trouble concentrating on things, such as reading the newspaper or watching television: not at all 8. Moving or speaking so slowly that other people could have noticed. Or the opposite - being so fidgety or restless that you have been moving around a lot more than usual: not at all 9. Thoughts that you would be better off or of hurting yourself in some way: not at all Total score: 3 Depression Screening Interpretation: Positive (Stable and controlled on citalopram) Depression Screening Follow-up: Existing condition and In treatment Depression Screening Done: Yes 57963 - PHQ-9 Billing: Yes Source: Developed by Drs. Joe Randolph, Shayna Chamberlain, Feliberto Velasquez and colleagues, with an educational tiffany from [employer]. Thrive Questionnaire Date Thrive assessed: 11/17/24 I am a: Patient What is your living situation today?: I have a steady place to live Within the past 12 months, did the food you bought not last and you didn't have the money to get more?: Never true Within the past 12 months, did you worry whether your food would run out before you got money to buy more?: Never true Do you have trouble paying for medicines?: No Do you have trouble getting transportation to medical appointments?: No Do you have trouble paying your heating and electricity bill?: No Do you have trouble taking care of your child, family member or friend?: No Do you have trouble with day-to-day activities such as bathing, preparing meals, shopping, managing finances, etc.?: No Are you currently unemployed and looking for a job?: No Are you interested in more education?: No Please select the resources that you would like help with: None Currently or been in a relationship where the following occur: No concerns reported THRIVE Score: 0 AUDIT C Alcohol Use Questionnaire (AUDIT-C) 1. How often do you have a drink containing alcohol?: Monthly or less 2. How many drinks containing alcohol do you have on a typical day when you are drinking?: 1 or 2 3. How often do you have six or more drinks on one occasion?: Never Total Score: 1 JEREMY-7 AMB Questionnaire JEREMY-7 Date JEREMY - 7 assessed: 11/17/24 Feeling nervous, anxious, or on edge: 0 = Not at all Not being able to stop or control worryin = Not at all Worrying too much about different things: 0 = Not at all Trouble relaxin = Not at all Being so restless that it is hard to sit still: 0 = Not at all Becoming easily annoyed or irritable: 0 = Not at all Feeling afraid as if something awful might happen: 0 = Not at all Total JEREMY-7 score (0-4 normal; 5-9 mild; 10-14 moderate; 15-21 severe): 0 Source: Developed by Drs. Joe Randolph, Shayna Chamberlain, Feliberto Velasquez and colleagues, with an educational tiffany from [employer]. JEREMY-7 Assessment Billing JEREMY-7 Assessment Tool: JEREMY-7 Assessment 36122 Review of Systems Const All systems reviewed & are unremarkable except as noted in HPI and below Eyes Details: sees Dr Brewer ENT Denies dizziness Card Denies chest pain, Denies chest pain at rest, Denies chest pain with activity, Denies rapid heart rate, Denies pedal edema, Denies edema, Denies leg edema, Denies lightheadedness, Denies palpitations, Denies dyspnea, Denies dyspnea on exertion and Denies orthopnea Resp Denies cough, Denies dyspnea and Denies dyspnea on exertion GI Denies hematochezia and Denies change in stool character Details: Currently followed by Dr. Richards for her bladder cancer on topical estradiol and progesterone Musc Denies abnormal gait, Reports limited range of motion, Reports muscle cramps, Denies muscle weakness, Denies numbness, Denies radiating pain into limb, Denies stiffness and Denies tingling Skin/Breast Denies breast pain, Denies pruritus, Denies lesions and Denies rash Neuro Denies abnormal gait, Denies dizziness, Denies numbness and Denies tingling Psych Reports no additional complaints Endo Denies palpitations Leonidas/Lymph Reports no additional complaints Aller/Immun Reports no additional complaints Physical exam (Primary Care) Vital Signs: Last Vital Signs Temp 98.1 F 11/17/24 11:10 Pulse 62 11/17/24 11:10 Resp 15 11/17/24 11:10 BP 124/64 11/17/24 11:10 Pulse Ox 96 11/17/24 11:10 Oxygen Delivery Method Room Air 11/17/24 11:10 BMI result Body Mass Index 26.8 Tobacco/Smoking Status: Tobacco use Status Tobacco use date assessed 11/17/24 11/17/24 11:08 Patient Tobacco Use Status Never used Tobacco 11/17/24 11:05 e-Cigarette/Vaping Use Never Used 11/17/24 11:05 PHQ-9: PHQ-9 Score PHQ-9: Total score 3 11/17/24 11:59 Depression Screening Interpretation: Positive (Stable and controlled on citalopram) Depression Screening Follow-up: Existing condition and In treatment Thrive Assessment: Date of Thrive Assessment Date Thrive assessed 11/17/24 11/17/24 11:08 Currently or been in a relationship where the following occur: No concerns reported Const General: cooperative, comfortable and no acute distress Orientation/consciousness: patient oriented x3 HENMT Head: Yes normocephalic and Yes atraumatic Ears: external ears normal, TM's normal bilaterally, EAC's normal and hearing grossly impaired (Has bilateral hearing aids) General nose exam: Normal external nose present Face and sinus: Yes face symmetric Mouth: Normal oral and palatal mucosa present, oropharynx normal and moist mucous membranes Eyes General: appearance normal, both eyes and all related structures Neck Neck: Yes full ROM, Yes no lymphadenopathy and Yes supple Chest Breast/axilla palpation: normal palpation of the breasts Resp Effort & Inspection: normal respiratory effort and able to speak in complete sentences Auscultation: clear to auscultation bilaterally Cardio Rate: regular rate Rhythm: regular rhythm Heart sounds: S1 normal heart sound present and S2 normal heart sound present GI Inspection: Yes normal to inspection Palpation (GI): Soft to palpation, nontender and no masses Auscultation: normal bowel sounds Other: Followed by Dr. Pichardo for her routine Pap and pelvic exam General: Yes no CVA tenderness Back/Spine/Pelvis Back: no CVA tenderness and No back tenderness Skin General skin exam: no rashes or lesions noted Neuro General: patient oriented x3, tone normal, moves all extremities and Normal light touch and pain sensation Cognition (Neuro): normal cognition Motor exam (neuro): 5/5 motor strength present throughout Extrem General: Yes normal to inspection, Yes full ROM, Yes no joint enlargement and Yes no calf tenderness Psych Appearance: grossly normal and well kempt Mental Status: mental status grossly normal Speech and movement: Normal speech and movement present Affect: normal affect Thought process: Normal thought process present Results Reviewed Results Reviewed: Laboratory Tests 11/13/24 10:50 Estimat Average Glucose 134 Hemoglobin A1c % 6.3 H Name: Sweetie Aponte Age/Sex: 64/F : 1960 Unit#: [id number] Attend Dr: Keesha Agustin MD Re11/13/24 Status: DEP [facility] Dis[facility]: SPEC : [id number] MICK: 11/13/24 STATUS: COMP REQ : [id number] RECD: 11/13/24-[address]: Keesha Agustin MD COMP: 11/13/24-1215 ENTERED: 11/13/24-[address]: ORDERED: Met Prof Fast, AST, ALT, Lipid Panel, Vitamin D 25-OH Test Result Flag Reference Sodium 139 135-145 mmol/L Potassium 4.2 3.3-5.1 mmol/L CL 105 96-108 mmol/L CO2 27 22-29 mmol/L Gap 11 L 12-20 BUN 10 9-16 mg/dL Creat 0.80 0.5-1.4 mg/dL eGFR > 60 Chronic Kidney Disease: Estimated GFR < 60 mL/min/1.73m2 Severe Kidney Disease: Estimated GFR < 15 mL/min/1.73m2 FBS 103 H 60-99 mg/dL A fasting glucose from 100-125 mg/dl is considered impaired (pre-diabetes). CA 9.1 8.4-10.2 mg/dL AST (GOT) 26 5-31 U/L ALT (GPT) 27 0-31 U/L Triglyceride 157 H <150 mg/dL Desirable Triglyceride: less than 150 mg/dL Borderline High Triglyceride 150-199 mg/dL High Triglyceride: 200-499 mg/dL Very High Triglyceride: greater than or equal to 5OO mg/dL Cholesterol 151 <200 mg/dL Desirable Cholesterol: less than 200 mg/dL Borderline High Cholesterol: 200-239 mg/dL High Cholesterol: greater than 239 mg/dL LDL Calculated 83 <100 mg/dL Desirable LDL: less than 100 mg/dL Near Optimal/Above Optimal LDL: 110-129 mg/dL Borderline High LDL: 130-159 mg/dL High LDL: 160-189 mg/dL Very High LDL: greater than or equal to 190 mg/dL HDL 37 L >40 mg/dL Desirable HDL: greater than 40 mg/dL Note: This HDL assay may give artificially low results in patients with liver disease. Vitamin D 25-OH 62.9 >30 ng/mL Health Based Reference Values* < 20 ng/mL Deficient 20-30 ng/mL Insufficient > 30 ng/mL Sufficient Coding Level of Care Code Est Pt Prev Care >65y(12150) Diagnoses Annual visit for general adult medical examination with abnormal findings Z00.01 Osteopenia of multiple sites M85.89 Depression, major, in remission F32.5 Impaired fasting glucose R73.01 Paroxysmal atrial fibrillation I48.0 Lichen sclerosus of female genitalia N90.4 Hx of bladder cancer Z85.51 Obstructive sleep apnea hypopnea, severe G47.33 Hypercholesteremia E78.00 Additional Codes JEREMY-7 Assessment Billing - JEREMY-7 Assessment Tool: JEREMY-7 Assessment 09170 ([id number]) PHQ-9 - 06453 - PHQ-9 Billing: Yes ([id number]) Assessment & Plan Assessment & Plan (1) Annual visit for general adult medical examination with abnormal findings: Code(s): Z00.01 - Encounter for general adult medical examination with abnormal findings Plan: Reviewed recent fasting lab results with patient. Reminded to do regular weight-bearing exercise to improve HDL cholesterol. Recommended dental visit every 6 months and regular eye exams, at least every 2 years. Take adequate calcium in diet and vitamin-D 3 at 2000 IU per cap once a day, in addition to weight-bearing exercises to help maintain good muscle tone and weight control. Instructed to do self-breast exam, and continue to get yearly mammogram, repeat bone density scan ordered. Patient will contact Dr. Vergara to schedule her screening colonoscopy due again this year. Up-to-date with her flu vaccine, and Prevnar 20 vaccination, reminded to get her shingles vaccine you need to repeat series as her last 1 was given in 2020. Up-to-date with Tdap (2) Osteopenia of multiple sites: Code(s): M85.89 - Other specified disorders of bone density and structure, multiple sites Category: Medical Plan: Ordered repeat bone density scan. Reinforced importance of doing regular weight-bearing exercise, continue taking calcium of done from dietary sources and continue with cholecalciferol 50 mcg daily (3) Depression, major, in remission: Code(s): F32.5 - Major depressive disorder, single episode, in full remission Category: Medical Plan: Stable and controlled on citalopram 40 mg daily (4) Impaired fasting glucose: Code(s): R73.01 - Impaired fasting glucose Category: Medical Plan: Your previous fasting blood sugars were elevated above 100 mg/dL. Impaired glucose metabolism increases the risk for developing diabetes mellitus type 2, as well as heart attack and stroke later on. Lifestyle changes that promotes weight loss, healthy eating habits, and regular exercise are important, and can prevent the progression to diabetes (5) Paroxysmal atrial fibrillation: Code(s): I48.0 - Paroxysmal atrial fibrillation Category: Medical Plan: Followed by cardiology currently on apixaban 5 mg 1 tablet twice a day and metoprolol tartrate 50 mg 1 tablet twice a day (6) Lichen sclerosus of female genitalia: Code(s): N90.4 - Leukoplakia of vulva Category: Medical Plan: Followed by Urology currently on estradiol 0.01% and progesterone micronized (7) Hx of bladder cancer: Code(s): Z85.51 - Personal history of malignant neoplasm of bladder Category: Medical Plan: Followed by Urology (8) Obstructive sleep apnea hypopnea, severe: Code(s): G47.33 - Obstructive sleep apnea (adult) (pediatric) Category: Medical Plan: On CPAP (9) Hypercholesteremia: Code(s): E78.00 - Pure hypercholesterolemia, unspecified Category: Medical Plan: Latest fasting labs showed normal LDL cholesterol was slightly elevated triglycerides and low HDL cholesterol. Will continue on atorvastatin 40 mg daily, reinforced importance of doing regular weight-bearing exercise to raise good cholesterol, and adherence to healthy eating habits Orders: Orders Hemoglobin A1c 6 Months E78.00 - Pure hypercholesterolemia, unspecified, R73.01 - Impaired fasting glucose XR DEXA axial skeleton 11/17/24 M85.89 - Other specified disorders of bone density and structure, multiple sites Lipid Panel 6 Months E78.00 - Pure hypercholesterolemia, unspecified, R73.01 - Impaired fasting glucose Glucose Fasting 6 Months E78.00 - Pure hypercholesterolemia, unspecified, R73.01 - Impaired fasting glucose Medications: Refilled atorvastatin 40 mg PO DAILY 90 tabs 4RF E78.00 - Pure hypercholesterolemia, unspecified
[2024-11-17 11:10] VITALS: BP 124/64; PULSE 62; RESP 15; TEMP 36.7; O2SAT 96; BMI 26.8
--- OUTSIDE RECORDS SUMMARY | 2024-11-17 12:10 | XMS_ITS | Patient Health Record ---
Author Organization [facility] Address [address] [place] [address] Care Team Providers Care Purchase Price Analyst Name Role Phone Vamsi DE SANTIAGO, Keesha Primary Care Provider Joe Barnes [facility] [phone] Reason For Referral No Information Medications Medication [...] Problem Status W/U Status Risk Notes Problem [id number] Encounter for screening for malignant neoplasm of colon (Z12.11) Active confirmed Problem 842003578 History of adenomatous polyp of colon (Z86.010) Active confirmed Problem [id number] Preprocedural examination (Z01.818) Active confirmed Plan Of Treatment Future Test Test Name Order Date COLONOSCOPY 04/30/2014 COLONOSCOPY 07/28/2019 Insurance Providers Payer Name Payer Address Payer Phone Subscriber Number Group Number Insured Name Patient Relationship to Insured Coverage Start Date Coverage End Date [employer] [address] [address] [place] [address] [id number] HAZEL FREIRE Self - patient is [...]
== END 2024-11-17 11:54 | disposition home or self-care (01) ==
LOC: HO.HMCC 10:57
PROVIDERS: PCP Internal Medicine; Visit Provider Internal Medicine
DX: Z00.01 Encounter for general adult medical examination with abnormal findings (principal); I48.0 Paroxysmal atrial fibrillation; M85.89 Other specified disorders of bone density and structure, multiple sites; F32.5 Major depressive disorder, single episode, in full remission; R73.01 Impaired fasting glucose; N90.4 Leukoplakia of vulva; Z85.51 Personal history of malignant neoplasm of bladder; G47.33 Obstructive sleep apnea (adult) (pediatric); E78.00 Pure hypercholesterolemia, unspecified

== ENCOUNTER → 2024-11-17 10:56 | Outpatient (BNVA) | payer MEDICARE, SELFPAY | PROVIDERS: PCP Internal Medicine; Visit Provider Internal Medicine | DX: Z00.01 Encounter for general adult medical examination with abnormal findings (principal); F32.5 Major depressive disorder, single episode, in full remission; R73.01 Impaired fasting glucose; M85.89 Other specified disorders of bone density and structure, multiple sites; I48.0 Paroxysmal atrial fibrillation; N90.4 Leukoplakia of vulva; E78.00 Pure hypercholesterolemia, unspecified; G47.33 Obstructive sleep apnea (adult) (pediatric); Z85.51 Personal history of malignant neoplasm of bladder | CPT/HCPCS: 96127; 99397 ==

== ENCOUNTER 2025-01-25 10:51 | Outpatient (REF) | payer MEDICARE, SELFPAY ==
--- NOTE | ~2025-01-25 | MM_ITS ---
EXAMINATION: DXA BONE DENSITY AXIAL HISTORY: M85.89 - Other specified disorders of bone density and structure, multiple... TECHNIQUE: Shhmooze Dual energy absorptiometry (DEXA) of the lumbar spine, total left hip, and femoral neck was performed. COMPARISON: Comparison is made with the prior examination dated 07/17/2022. FINDINGS: The bone mineral density of the lumbar spine is 1.094 g/cm2, corresponding to a T-score of -0.9, and a Z-score of 0.3. This is indicative of normal bone mineral density. This represents a BMD change of 6.1% compared to the prior exam. This is statistically significant. The bone mineral density of the left total hip is 0.851 g/cm2, corresponding to a T-score of -1.2, and a Z-score of -0.3. This is indicative of osteopenia. This represents a BMD change of 5.2% compared to the prior exam. This is statistically significant. The bone mineral density of the left femoral neck is 0.900 g/cm2, corresponding to a T-score of -1.0, and a Z-score of 0.2. This is indicative of normal bone mineral density. This represents a BMD change of -0.6% compared to the prior exam. FRACTURE RISK: The FRAX index suggests a ten year probability of major osteoporotic fracture of 8.4%, and of hip fracture 0.7%. MM/XR DEXA axial skeleton IMPRESSION: Based on bone mineral density, and according to World Health Organization (WHO) criteria, the diagnosis is consistent with osteopenia. Statistically, 68% of repeat scans fall within 1 SD (+/- 0.010 g/cm2 for AP spine L1-L4) and 1 SD (+/- 0.012 g/cm2 for femur total) FRAX is a trademark of the [employer] [place] [facility] Met[employer] Bone Disease, a World Health Organization (WHO) Collaborating Center. Electronically signed by: Joe Brooks MD 01/25/2025 11:53 AM EDT
--- OUTSIDE RECORDS SUMMARY | 2025-01-25 13:11 | XMS_ITS | Patient Health Record ---
Author Organization [facility] Address [address] [place] [address] Care Team Providers Care Pasteurizing Supervisor Name Role Phone Vamsi DE SANTIAGO, Keesha Primary Care Provider Joe Barnes [facility] [phone] Reason For Referral No Information Medications Medication [...] Problem Status W/U Status Risk Notes Problem [id number] Encounter for screening for malignant neoplasm of colon (Z12.11) Active confirmed Problem 415942192 History of adenomatous polyp of colon (Z86.010) Active confirmed Problem [id number] Preprocedural examination (Z01.818) Active confirmed Plan Of Treatment Future Test Test Name Order Date COLONOSCOPY 04/30/2014 COLONOSCOPY 07/28/2019 Next Appt Details Provider Name:Joe Mathew , 04/20/2025 10:50:00 AM, [address], [address], [place], [address], Insurance Providers Payer Name Payer Address Payer Phone Subscriber Number Group Number Insured Name Patient Relationship to Insured Coverage Start Date Coverage End Date [facility] [address] [place] [address] [phone] [id number] HAZEL MARVIN Self - patient is the insured Medical (General) History Medical History History ICD Code Colonoscopy 03/07/2010--2 cm tubular adenoma removed at that time from the sigmoid colon-she was also noted to have some diverticulosis and internal hemorrhoids Depression Hyperlipidemia Cystoscopy with Dr. Mir, III in 04/2014--precancerous lesions Denies MT,DM,CVA,Lung disease,renal dise ase Renal cysts Bladder cancer 08/2018-cystoscopy Colonoscopy June 2014 with removal o f a small tubular adenoma. Surgical History Surgery Date(Month/Year)
== END 2025-01-25 10:52 | disposition home or self-care (01) ==
LOC: HO.MAMMO 10:51
PROVIDERS: PCP Internal Medicine; Visit Provider Internal Medicine
DX: Z13.820 Encounter for screening for osteoporosis (principal); M85.89 Other specified disorders of bone density and structure, multiple sites
CPT/HCPCS: 77080

== ENCOUNTER → 2025-01-25 11:00 | Outpatient (BNV) | payer MEDICARE, SELFPAY | PROVIDERS: PCP Internal Medicine; Visit Provider Radiology Diagnostic Radiology | DX: E28.39 Other primary ovarian failure (principal) | CPT/HCPCS: 77080 ==

== ENCOUNTER 2025-03-11 13:21 | Outpatient (AMB) | payer MEDICARE, SELFPAY ==
--- NOTE | 2025-03-11 13:48 | MHC.OFFVIS ---
Intake Visit Reasons: cysto Intake Note: Patient present today for a 6 month follow up/PVR Urology Meds: Estradiol, Progesterone Blood Thinner: eliquis Logistic Specialist Required: No Accompanied by: Self / Same As Patient Allergies No Known Allergies (No Known Allergies*) Allergy (Verified 03/11/25 13:49) HPI Comments Details: Sweetie is a pleasant female. She is seen for the following urologic conditions - bladder cancer - lichen sclerosis - hot flashes Last Botox February 2024 Six-month follow-up PVR 0 Continues to have good response Last time went 18 months between Botox injections Here for check cysto for bladder cancer Would like to get repeat Botox in May Has managed lichen sclerosis with combination intermittent topical steroid + estradiol on alternate days Bladder cancer June 2018 low-grade recurrence Longstanding Last TURBT June 2018 with low-grade bladder cancer Longstanding smoking history Underwent BCG therapy Cystoscopy 02/07 NAD, 08/08 NAD, 08/09 NAD, 02/09 NAD, 08/10 NAD, 02/10 NAD Cytology NAD 02/10 Continue with bladder check every 6 months Urgency frequency Non responsive to oral medications Botox performed to bladder in August 2020, 08/08, 10/09, 03/12 Good effect with Botox Lichen sclerosis Vaginal introitus Good response to steroid therapy and estradiol cream on alternating days Continue with [id number] COUNTS INCLUDE 234 BEDS AT THE [facility] Medical History (Updated 11/17/24 @ 12:03 by Keesha Agustin MD) Osteopenia of multiple sites Hx of atrial fibrillation, no current medication Paroxysmal atrial fibrillation New onset atrial fibrillation Obstructive sleep apnea hypopnea, severe Implantable loop recorder present Lesion of skin of scalp Degenerative disc disease, lumbar Left foot drop Depression, major, in remission Menopause Vitamin D deficiency Lumbar disc herniation with radiculopathy Lumbar nerve root impingement 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 Brother HTN (hypertension) Sister HTN (hypertension) Son Mental health disorder Daughter No problems noted. Social History Housing: House Patient Tobacco Use Status: Never used Tobacco e-Cigarette/Vaping Use: Never Used Advance Directives Date on File: 07/09/19 service: No Current occupational status: employed and retired Cognitive needs: No Hearing needs: No Vision needs: Yes Female Reproductive History Menstrual Age of Menarche: 10 Review of Systems Const Denies chills and Denies fever(s) Card Reports no additional complaints and Denies syncope Resp Denies cough GI Denies abdominal pain and Denies heartburn Reports as per HPI and Denies change in libido Neuro Denies syncope Psych Denies change in libido Endo Denies change in libido Physical Exam Const General: cooperative, healthy appearing, comfortable and no acute distress Orientation/consciousness: patient oriented x3 HEENT Face and sinus: Yes normal facial exam Mouth: moist mucous membranes Neck Neck: Yes normal visual inspection, Yes full ROM and Yes trachea midline Chest Chest palpation & inspection: normal inspection of the chest Resp Effort & Inspection: normal respiratory effort, able to speak in complete sentences and no respiratory distress GI Inspection: Yes normal to inspection Back/Spine/Pelvis Cervical Spine: normal cervical lordosis Thoracic/Lumbar Spine: thoracic and lumbar spine normal to inspection Skin General skin exam: no rashes or lesions noted Neuro General: patient oriented x3, gait normal, tone normal and moves all extremities Extrem General: Yes normal to inspection and Yes capillary refill normal Office Procedures Cystoscopy Consent Discussed risk and benefit or proposed procedure with the patient. Information consent for procedure given to the patient. Discussed technical aspects, risks, benefits and alternatives in full. Addressed all of the patient's questions and concerns regarding the procedure. The patient demonstrated knowledge and understanding. They wish to proceed with this procedure. Preparation The patient was prepped in the usual manner. A lumber sorter was present and in the room. Genitalia was prepped with betadine solution in a sterile manner. Lidocaine Jelly 2% was placed into the urethra and 16Fr flexible Olympus cystoscope was inserted into the meatus after adequate lubrication. Procedure Meatus GSM Urethra above Bladder examination with retroflexion of cystoscope Bladder Orifices normal shape and position Trigone normal Bladder Capacity Normal Trabeculations Grade 0 Cellule Formation None Diverticulum Formation None Mucosal Erythema None Bladder Tumor none [id number] DISPOSABLE SCOPE URO-G FLEXIBLE SCOPE Procedure code (CPT) selection complete Office Meds lidocaine HCl 2 % mucosal jelly in applicator Performing Provider: Silverio Richards MD Performing Location: [facility] Administered by: Edson Cid LPN on 03/11/25 14:06 Dose Route Admin Location Dispensed Lot Number Expiration Date NDC Underground Repairer 10 mL intra-urethral 10 mL nitrofurantoin monohydrate/macrocrystals 100 mg capsule Performing Provider: Silverio Richards MD Performing Location: [facility] Administered by: Edson Cid LPN on 03/11/25 14:06 Dose Route Admin Location Dispensed Lot Number Expiration Date ND Underground Repairer 100 mg PO 1 cap Results AMB Urinalysis, Automated UA Leukoctes 0 Nora/uL Last Edit by AMRIAMA Smith on 03/11/25 14:01 UA Nitrite Negative Last Edit by MARIAMA Smith on 03/11/25 14:01 UA Urobilinogen 0.2 mg/dL Last Edit by MARIAMA Smith on 03/11/25 14:01 UA Protein 15 mg/dL Last Edit by MARIAMA Smith on 03/11/25 14:01 UA pH 6.0 Last Edit by MARIAMA Smith on 03/11/25 14:01 UA Blood 80 Papo/uL Last Edit by MARIAMA Smith on 03/11/25 14:01 UA Specific [place] 1.015 Last Edit by MARIAMA Smith on 03/11/25 14:01 UA Ketone Negative Last Edit by MARIAMA Smith on 03/11/25 14:01 UA Bilirubin 0 mg/dL Last Edit by MARIAMA Smith on 03/11/25 14:01 UA Glucose 0 mg/dL Last Edit by MARIAMA Smith on 03/11/25 14:01 Results Reviewed Results Reviewed: Laboratory Last Values Urine pH (Auto) 6.0 03/11/25 13:59 Specific [place] (Auto) 1.015 03/11/25 13:59 Urine Protein (Auto) 15 mg/dL 03/11/25 13:59 Glucose (UA)(Auto) 0 mg/dL 03/11/25 13:59 Urine Ketones (Auto) Negative 03/11/25 13:59 Urine Blood (Auto) 80 Papo/uL 03/11/25 13:59 Urine Nitrite (Auto) Negative 03/11/25 13:59 Urine Bilirubin (Auto) 0 mg/dL 03/11/25 13:59 Urine Urobilinogen (Auto) 0.2 mg/dL 03/11/25 13:59 Leukocyte Esterase (Auto) 0 Nora/uL 03/11/25 13:59 Assessment & Plan Assessment & Plan (1) Bladder cancer: Code(s): C67.9 - Malignant neoplasm of bladder, unspecified Category: Medical (2) Overactive bladder: Comment: Botox 08/08 Code(s): N32.81 - Overactive bladder Category: Medical (3) Lichen sclerosus of female genitalia: 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 While every effort has been made to ensure accuracy emergency medical service coordinator errors may have been included. Imaging studies, laboratory and physical exam results were discussed and reviewed in detail. No major barriers to patient understanding were identified. An opportunity to ask questions regarding the treatment plan was provided. All questions were answered. The patient expressed understanding and agreement with the above treatment plan. The patient is aware they should contact our office by phone for worsening of their current condition or the appearance of new urologic symptoms. Compliance is encouraged with any medications and followup testing that is ordered. It is a privilege to participate in the urologic care of your patient. If you have any questions or concerns regarding treatment for the above conditions, or other urologic issues, please do not hesitate to contact me. The office telephone contact is [phone]. Sincerely, Dr Silverio Richards MD, [facility] - Urology Compassionate Specialist Care for the Genitourinary System Coding Level of Care Code Complex visit Add On G2211 Diagnoses Bladder cancer C67.9 Overactive bladder N32.81 Lichen sclerosus of female genitalia N90.4 CPT Codes Cystoscopy - CPT: 95529-[id number] ([id number])
--- OUTSIDE RECORDS SUMMARY | 2025-03-11 16:54 | XMS_ITS | Patient Health Record ---
Author Organization [facility] Address [address] [place] [address] Care Team Providers Care Cow Tender Name Role Phone Vamsi DE SANTIAGO, Keesha Primary Care Provider Joe Barnes [facility] [phone] Reason For Referral No Information Medications Medication SIG (Take, Route, Frequency, Duration) Notes Start Date End Date Status Multivitamin Active Fish Oil Active Citalopram Hydrobromide 40 MG TAKE 1 TABLET BY MOUTH EVERY DAY Oral; Duration: 30 Active Calcium Active Vitamin D Active Atorvastatin Calcium 20 MG TAKE 1 TABLET BY MOUTH EVERY DAY Oral; Duration: 30 Active Immunizations Vaccine Route Administration Date Status Comme nts Influenza Unknown 02/17/2019 Administered Problems Problem Type SNOMED Code ICD Code Onset Dates Problem Status W/U Status Risk Notes Problem Screening for malignant neoplasm of colon (470463880) Encounter for screening for malignant neoplasm of colon (Z12.11) Active confirmed Problem History of adenomatous polyp of colon (315512704) History of adenomatous polyp of colon (Z86.010) Active confirmed Problem Preprocedural examination (360121799114642) Preprocedural examination (Z01.818) Active confirmed Plan Of Treatment Future Test Test Name Order Date COLONOSCOPY 04/30/2014 COLONOSCOPY 07/28/2019 Next Appt Details Provider Name:Joe Cid Mathew , 04/20/2025 10:50:00 AM, [address], [address], [place], [address], Insurance Providers Payer Name Payer Address Payer Phone Subscriber Number Group Number Insured Name Patient Relationship to Insured Coverage Start Date Coverage End Date [facility] [address] [place] [address] [id number] HAZEL MARVIN Self - patient is the insured Medical (General) History Medical History History ICD Code Colonoscopy 03/07/2010--2 cm tubular adenoma removed at that time from the sigmoid colon-she was also noted to have some diverticulosis and internal hemorrhoids Depression Hyperlipidemia Cystoscopy with Dr. Mir, III in 04/2014--precancerous lesions Denies ND,DM,CVA,Lung disease,renal dise ase Renal cysts Bladder cancer 08/2018-cystoscopy Colonoscopy June 2014 with removal o f a small tubular adenoma. Surgical History Surgery Date(Month/Year)
== END 2025-03-11 14:25 | disposition home or self-care (01) ==
LOC: HO.HUSH 13:22
PROVIDERS: PCP Internal Medicine; Visit Provider Urology
DX: C67.9 Malignant neoplasm of bladder, unspecified (principal); N32.81 Overactive bladder; N90.4 Leukoplakia of vulva
CPT/HCPCS: 52000; G2211

== ENCOUNTER → 2025-03-11 13:21 | Outpatient (BNVA) | payer MEDICARE, SELFPAY | PROVIDERS: PCP Internal Medicine; Visit Provider Urology | DX: N39.41 Urge incontinence (principal); N32.81 Overactive bladder; Z13.9 Encounter for screening, unspecified | CPT/HCPCS: 52000; 81003 ==

== ENCOUNTER → 2025-03-25 09:57 | Outpatient (REF) | payer MEDICARE, SELFPAY ==
--- NOTE | 2025-03-25 10:01 | CA_ITS ---
Transthoracic Echocardiogram Patient (Last, First, Middle): Sweetie Aponte M Gender: Female Date of : 1960 Age: 65 Procedure Date: 03/25/2025 Procedure Type: Transthoracic Echocardiogram Location: OP Height: 172.72 cm Weight: 79.83 kg BSA: 1.94 m2 Heart Rate: bpm BP: 124 / 64 mmHg Commercial Appraiser: MAYRA Referring MD: Lee Hurley MD Spouting Installer: Lee Hurley MD Symptoms: I48.0 - Paroxysmal atrial fibrillation Study Quality: Adequate ECG Rhythm: Sinus Conclusions: - 1. Normal LV ejection fraction 55-60% with mild LVH with impaired relaxation filling pattern with moderate asymmetric septal hypertrophy 2. Mildly dilated left atrium 3. Normal cardiac valvular Dopplers 4. Upper limits of normal RV systolic pressure 5. Upper limits of normal ascending aortic size 6. No gross pericardial effusion Findings Left Ventricle Normal left ventricular size and systolic function. There is mildly increased left ventricular wall thickness. The visually estimated ejection fraction is between 55-60%. There is no dynamic left ventricular outflow tract obstruction. Spectral Doppler is indicative of an impaired relaxation filling pattern. E/E prime ratio is between 8 and 15 consistent with indeterminate filling pressures. There is moderate septal asymmetric hypertrophy. Right Ventricle Normal right ventricular cavity size and systolic function. Atria The left atrium is mildly dilated. There is no evidence of interatrial shunt. The right atrium is normal in size. Aortic Valve Normal aortic valve structure and function. There is no aortic valve stenosis. There is no aortic valve regurgitation. Mitral Valve Normal mitral valve structure and function. There is trace mitral valve regurgitation. There is no mitral valve stenosis. Pulmonic Valve The pulmonic valve is likely normal. There is trace pulmonic valve regurgitation. Tricuspid Valve Normal tricuspid valve structure. There is trace tricuspid valve regurgitation. The right ventricular systolic pressure is normal. The right ventricular systolic pressure is 35 mmHg. Normal right atrial pressure. There is no evidence of pulmonary hypertension. Great Vessels The pulmonary artery was not well visualized. There is no dilatation of the ascending aorta measuring 3.50 cm. Venous The inferior vena cava is normal in size and collapses greater than 50% with inspiration. Pericardium/Pleural There is no evidence of pericardial effusion. Prior Study Comparison No significant change compared to prior study dated: 06/14/2023. Measurements 2D Linear Measurements IVSd: 1.27 0.6-0.9/0.6-1.0 cm LVIDd: 4.80 3.9-5.3/4.2-5.9 cm LVIDd Index: 2.47 2.4-3.2/2.2-3.1 cm/m2 LVIDs: 3.08 2.0-3.6 cm LVPWd: 1.18 0.7-1.1 cm LV Mass: 281.31 67-162/88-224 g LV Mass Index: 145.00 43-95/49-115 g/m2 LVOT Diam: 2.30 3.0+(-)1.3 cm 2D Systolic Function EF 4C: 61.90 >55% EF 2C: 59.40 >55% EF BiP: 58.90 >55% Mitral Valve MV Pk E: 0.72 MV PK A: 0.88 MV Decel Time: 283.00 E/A: 0.80 E'Lateral: 5.44 E'Medial: 5.33 E/E' Med: 13.50 E/E' Lat: 13.20 PHT: 83.00 MVA PHT: 2.65 Decel Scott: 2.54 Aortic Valve AoV Pk Andrew: 1.55 AoV Mn Andrew: 1.05 AoV VTI: 0.35 AoV Pk Grad: 10.00 Aov Mn Grad: 5.00 RAHEL Cont.VTI: 2.68 LVOT LVOT Pk Andrew: 0.90 LVOT Mn Andrew: 0.66 LVOT VTI: 0.23 LVOT Pk Grad: 3.00 LVOT Mn Grad: 2.00 LVOT Diam: 2.30 LVOT Area: 4.15 Diastolic Function MV Pk E: 0.72 MV Pk A: 0.88 E/A: 0.80 E'Medial: 5.33 E/E' Med: 13.50 E' Laterial: 5.44 E/E' Lat: 13.20 Right Ventricle TAPSE (mm): 25.70 TVS' Andrew: 10.80 Tricuspid Valve TR Pk Andrew: 2.85 TR Pk Grad: 32.00 RA Press: 3.00 RVSP: 35.00 Great Vessels Aorta Sinus of Valsalva: 3.46 2.0-3.5 cm Ao Asc: 3.50 2.1-3.4 cm Ao Arch: 3.20 Pulmonary Veins Pulm Vein S/D 1.90 Updated in Other Vendor System with Status of Final Lee Hurley MD electronically signed on 03/25/2025 12:07:09 PM with status of Final
--- OUTSIDE RECORDS SUMMARY | 2025-03-25 11:25 | XMS_ITS | Patient Health Record ---
Author Organization [facility] Address [address] [place] [address] Care Team Providers Care Shingle Inspector Name Role Phone Vamsi DE SANTIAGO, Keesha Primary Care Provider Joe Barnes [facility] [phone] Reason For Referral No Information Medications Medication [...] Problem Screening for malignant neoplasm of colon (179608762) Encounter for screening for malignant neoplasm of colon (Z12.11) Active confirmed Problem History of adenomatous polyp of colon (918117734) History of adenomatous polyp of colon (Z86.010) Active confirmed Problem Preprocedural examination (930163341333306) Preprocedural examination (Z01.818) Active confirmed Plan Of Treatment Future Test Test Name Order Date COLONOSCOPY 04/30/2014 COLONOSCOPY 07/28/2019 Next Appt Details Provider Name:Joe Cid Mathew , 04/20/2025 10:50:00 AM, [address], [address], [place], [address], Insurance Providers Payer Name Payer Address Payer Phone Subscriber Number Group Number Insured Name Patient Relationship to Insured Coverage Start Date Coverage End Date [facility] [address] [place] [address] [phone] [id number] HAZEL MARVIN Self - patient is the insured Medical (General) History Medical History History ICD Code Colonoscopy 03/07/2010--2 cm tubular adenoma removed at that time from the sigmoid colon-she was also noted to have some diverticulosis and internal hemorrhoids Depression Hyperlipidemia Cystoscopy with Dr. Mir, III in 04/2014--precancerous lesions Denies PA,DM,CVA,Lung disease,renal dise ase Renal cysts Bladder cancer 08/2018-cystoscopy Colonoscopy June 2014 with removal o f a small tubular adenoma. Surgical History Surgery Date(Month/Year)
== END ==
LOC: HO.CARD 09:57
PROVIDERS: PCP Internal Medicine; Visit Provider Internal Medicine Cardiovascular Disease
DX: I48.0 Paroxysmal atrial fibrillation (principal)
CPT/HCPCS: 93306

== ENCOUNTER → 2025-03-25 10:01 | Outpatient (BNV) | payer MEDICARE, SELFPAY | PROVIDERS: PCP Internal Medicine; Visit Provider Internal Medicine Cardiovascular Disease | DX: I42.2 Other hypertrophic cardiomyopathy (principal); I51.7 Cardiomegaly | CPT/HCPCS: 93306 ==

== ENCOUNTER 2025-05-04 09:40 | Outpatient (AMB) | payer MEDICARE, SELFPAY ==
--- NOTE | 2025-05-04 09:44 | MHC.OFFVIS ---
Vital Signs 05/04/25 09:45 Height 5 ft 8 in Weight 175 lb 7.807 oz BMI 26.7 BP 124/72 Blood Pressure Location Lt brachial Position Sitting Pulse 72 Pulse Source Pulse Oximeter Intake Visit Reasons: 6 mth f/up Spinner Frame Required: No Allergies No Known Allergies (No Known Allergies*) Allergy (Verified 05/04/25 09:48) Medication List - Last Reconciled 05/04/25 by RAYA CardozaC apixaban (Eliquis) 5 mg PO BID atorvastatin 40 mg PO DAILY cholecalciferol (vitamin D3) 50 mcg PO DAILY ciprofloxacin HCl 250 mg PO BID 5 days citalopram 40 mg PO DAILY clobetasol 0.05% 1 appl topical DAILY 30 weeks estradiol 0.01%(0.1mg/gram) pea-sized to urethra 2 times a week; alternate with clobetasol cream 30 days magnesium gluconate 250 mg PO BID metoprolol tartrate 50 mg PO BID [multivitamin 1 tab PO DAILY] progesterone micronized 100 mg PO BEDTIME 90 days HPI HPI 6 mth f/up: Details: Marti is a 65-year-old female with past medical history of hyperlipidemia, impaired fasting glucose, sleep apnea, paroxysmal atrial fibrillation, prior implanted loop recorder, who presents for follow up. Today she reports that she has been noticing increasing heart palpitations in the last 2-3 months. She feels that her heart may be beating differently at random times. She feels it most days then not. At times she will notice a burning discomfort in her mid chest which occurs mostly at rest. She is not having symptoms clearly brought on by exertional activities. No shortness of breath, PND, orthopnea or edema. No lightheadedness, presyncope, syncope, falls. Taking all meds as directed. 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 Brother HTN (hypertension) Sister HTN (hypertension) Son Mental health disorder Daughter No problems noted. Social History Housing: House Patient Tobacco Use Status: Never used Tobacco e-Cigarette/Vaping Use: Never Used Advance Directives Date on File: 07/09/19 service: No Current occupational status: employed and retired Cognitive needs: No Hearing needs: No Vision needs: Yes Female Reproductive History Menstrual Age of Menarche: 10 Review of Systems Const All systems reviewed & are unremarkable except as noted in HPI and below ENT Denies dizziness Card Details: heart palpitations, burning in chest, random occurrences - not brought on by activity Reports chest pain, Denies chest pain at rest, Denies chest pain with activity, Denies rapid heart rate, Denies pedal edema, Denies edema, Denies leg edema, Denies lightheadedness, Reports palpitations, Denies dyspnea, Denies dyspnea on exertion and Denies orthopnea Resp Denies cough, Denies dyspnea and Denies dyspnea on exertion GI Denies hematochezia and Denies change in stool character Musc Denies abnormal gait, Denies limited range of motion, Denies muscle cramps, Denies muscle weakness, Denies numbness, Denies radiating pain into limb, Denies stiffness and Denies tingling Neuro Denies abnormal gait, Denies dizziness, Denies numbness and Denies tingling Endo Reports palpitations Physical Exam Vital Signs: Last Vital Signs Pulse 72 05/04/25 09:45 BP 124/72 05/04/25 09:45 BMI result Body Mass Index 26.7 Const General: cooperative, healthy appearing, comfortable and no acute distress Orientation/consciousness: patient oriented x3 Resp Effort & Inspection: normal respiratory effort Auscultation: clear to auscultation bilaterally, no rales, no rhonchi and no wheezes Cardio Rate: regular rate Rhythm: regular rhythm Heart sounds: S1 normal heart sound present, S2 normal heart sound present, no gallops, no murmurs and no rubs Neuro General: patient oriented x3 Extrem General: Yes normal to inspection Psych Appearance: grossly normal Mental Status: mental status grossly normal Speech and movement: Normal speech and movement present Assessment & Plan Assessment & Plan (1) Paroxysmal atrial fibrillation: Code(s): I48.0 - Paroxysmal atrial fibrillation Category: Medical Plan: History of paroxysmal atrial fibrillation treated with rate control using metoprolol. She is on Eliquis for anticoagulation. Recent reports of palpitations not quite as bothersome as prior palpitations with AFib, but occurring most days. Will check Holter monitor to assess for arrhythmia. Plan to call her with results. No med changes at this time. (2) Chest discomfort: Code(s): R07.89 - Other chest pain Category: Medical Plan: Reports of burning type sensation in the mid chest up to her throat which occurs randomly. Symptoms not brought on with exertional activities. Echocardiogram 03/25/2025 showed EF 55-60%, mild LVH, moderate asymmetric septal hypertrophy, mildly dilated left atrium, normal valves. Nuclear stress test done 08/30/2023 had shown no clear evidence of infarct or ischemia. Due to her new symptoms will update a pharmacological nuclear stress test to evaluate for ischemia. (3) LVH (left ventricular hypertrophy): Code(s): I51.7 - Cardiomegaly Category: Medical Plan: Last echocardiogram 06/14/2023 shows EF 55-60%, normal RV size and function, moderate LVH, left atrium mildly dilated. Cardiac MRI 10/04/2023 showed normal-sized LV with EF 50%, thickening of the basal to mid septum 1.6 cm anteriorly remainder of myocardium thickness is normal. Mild size intramural delayed enhancement signal at the basal lateral wall suspicious for fibrosis, less likely myocarditis or sarcoid, pattern is atypical for amyloid. Blood pressure currently well controlled. (4) Preop cardiovascular exam: Code(s): Z01.810 - Encounter for preprocedural cardiovascular examination Category: Medical Plan: Patient reports having colonoscopy on 06/21/2025. At this time cardiac testing is being done and preop clearance will be addressed once results are known Plan I explained to the patient that the change in her symptoms?feeling that her heart is out of sync without the previous racing sensation?could be due to the metoprolol controlling her heart rate during episodes of atrial fibrillation. I noted that the new burning sensation in her chest and throat is concerning, as it could be a form of chest discomfort related to heart artery blood flow. Therefore, I have ordered an external heart monitor and a stress test. We discussed that a medicine-based stress test would be more appropriate for her, given her peripheral neuropathy and difficulty with an inclined treadmill. I advised her that we will continue her current medications for now but may adjust them based on the test results. Regarding her upcoming colonoscopy, I recommended completing this cardiac evaluation first, after which we will provide clearance and instructions for managing her Eliquis. I informed her that centralized scheduling will contact her for the tests, we will call her with the results, and a follow-up visit is scheduled in 2-3 months to review everything. Orders: Orders CA lexiscan stress w marjorie Today I48.0 - Paroxysmal atrial fibrillation, R07.89 - Other chest pain, Z01.810 - Encounter for preprocedural cardiovascular examination NM cardiolite stress test Today I48.0 - Paroxysmal atrial fibrillation, R07.89 - Other chest pain, Z01.810 - Encounter for preprocedural cardiovascular examination ECG 3 day holter monitor Today I48.0 - Paroxysmal atrial fibrillation Patient Instructions: - Continue taking your current medications, including metoprolol and Eliquis, exactly as prescribed. - You will receive a phone call from our scheduling department to set up appointments for a heart monitor and a stress test. - The stress test will be done using medication to stimulate your heart, so you will not need to walk on a treadmill. - We will call you with the results of your tests once they are available. - Please keep your follow-up appointment in 2-3 months to discuss the test results in detail. - Clearance for the colonoscopy will be determined once the test results are known. Patient was informed and verbally consented to the use of an ambient scribe for clinic note documentation during this visit. Visit time spent on chart review, interview, assessment, orders, documentation. Coding Level of Care Code Est Pt Level 4 (24270) Add On Problem Visit Only Diagnoses Paroxysmal atrial fibrillation I48.0 Chest discomfort R07.89 LVH (left ventricular hypertrophy) I51.7 Preop cardiovascular exam Z01.810 Time Spent (min) 30
[2025-05-04 09:45] VITALS: BP 124/72; PULSE 72; BMI 26.7
--- OUTSIDE RECORDS SUMMARY | 2025-05-04 11:27 | XMS_ITS | Patient Health Record ---
Author Organization [facility] Address [address] [place] [address] Care Team Providers Care Transportation Job Titles Name Role Phone Vamsi DE SANTIAGO, Keesha Primary Care Provider Joe Barnes Unavailable [phone] Allergies No Known Allergies Reason For Referral No Information Medications Medication SIG (Take, Route, Frequency, Duration) Notes Start Date End Date Status Vitamin D Active Citalopram Hydrobromide 40 MG Tablet TAKE 1 TABLET BY MOUTH EVERY DAY Oral; Duration: 30 Active Atorvastatin Calcium 20 MG Tablet TAKE 1 TABLET BY MOUTH EVERY DAY Oral; Duration: 30 Active Multivitamin Not-[place] ing/PRN Fish Oil Not-Taking /PRN Calcium Not-Taking /PRN Magnesium Glycinate 04/20/2025 Active Progesterone 100 MG Capsule Oral; Duration: 90 Days Active Clobetasol Propionate 0.05 % Cream USE 1 APPL TOPICALLY DAILY FOR 30 WEEKS APPLY 0.5 FINGER TIP EVERY OTHER DAY External; Duration: 30 Days Active Estradiol 0.01 % Cream Vaginal; Duration : 30 Days Active Eliquis 5 MG Tablet TAKE 1 TABLET BY MOUTH TWICE A DAY Oral; Duration: 90 Days Active Metoprolol Tartrate 50 MG Tablet Oral; Duration: 90 Days Active Immunizations Vaccine Route Administration Date Status Comme nts Influenza Unknown 02/17/2019 Administered Influenza Unknown 04/20/2024 Administered Social History Social History Drug/Alcohol: Social Info Question Answer Notes AUDIT-C (Standard) Did you have a drink containing alcohol in the past year? 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 Section Notes: Nonsmoker; no sig alcohol Nonsmoker; no sig alcohol Nonsmoker; no sig alcohol Problems Problem Type SNOMED Code ICD Code Onset Dates Problem Status W/U Status Risk Notes Problem Screening for malignant neoplasm of colon (789242600) Encounter for screening for malignant neoplasm of colon (Z12.11) Active confirmed Problem History of adenomatous polyp of colon (672588380) History of adenomatous polyp of colon (Z86.010) Active confirmed Problem Long-term current use of anticoagulant (055600362) 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) Active confirmed Problem Preprocedural examination (092937446978608) Preprocedural examination (Z01.818) Active confirmed Vital Signs Blood pressure diastolic 01 mm Hg 04/20/2025 Height 68 in 04/20/2025 Blood pressure systolic 001 mm Hg 04/20/2025 Weight 175.4 lbs 04/20/2025 BMI 26.67 kg/m2 04/20/2025 Encounters Encounter Location Date Provider Diagnosis [facility] [address] [place] [id number] 04/20/2025 Joe Mathew History of adenomato us polyp of colon Z86.010 ; Preprocedural examination Z01.818 ; Encounter for screening for malignant neoplasm of colon Z12.11 and 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 She is not having any new or worrisome GI complaints. Given her previous history of tubular adenomas, including a 2 cm polyp that was removed with her initial screening colonoscopy back in 2009, I did recommend a follow-up colonoscopy for further screening purposes. We did review the rationale for this in regard to colon cancer prevention. Full consent has been obtained for this, including risks of bleeding and perforation. The procedure will be done with monitored anesthesia care. She was given the below instructions regarding adjustment of her medication for the procedure. Sweetie was comfortable with this plan. Thank you again for allowing me to participate in Sweetie's care. I shall continue to keep you advised of her progress. 04/20/2025 Preprocedural examination (ICD-10 - Z01.818) Overall, Sweetie appears quite well. She is not having any new or worrisome GI complaints. Given her previous history of tubular adenomas, including a 2 cm polyp that was removed with her initial screening colonoscopy back in 2009, I did recommend a follow-up colonoscopy for further screening purposes. We did review the rationale for this in regard to colon cancer prevention. Full consent has been obtained for this, including risks of bleeding and perforation. The procedure will be done with monitored anesthesia care. She was given the below instructions regarding adjustment of her medication for the procedure. Sweetie was comfortable with this plan. Thank you again for allowing me to participate in Sweetie's care. I shall continue to keep you advised of her progress. 04/20/2025 Encounter for screening for malignant neoplasm of colon (ICD-10 - Z12.11) Overall, Sweetie appears quite well. She is not having any new or worrisome GI complaints. Given her previous history of tubular adenomas, including a 2 cm polyp that was removed with her initial screening colonoscopy back in 2009, I did recommend a follow-up colonoscopy for further screening purposes. We did review the rationale for this in regard to colon cancer prevention. Full consent has been obtained for this, including risks of bleeding and perforation. The procedure will be done with monitored anesthesia care. She was given the below instructions regarding adjustment of her medication for the procedure. Sweetie was comfortable with this plan. Thank you again for allowing me to participate in Sweetie's care. I shall continue to keep you advised of her progress. 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 She is not having any new or worrisome GI complaints. Given her previous history of tubular adenomas, including a 2 cm polyp that was removed with her initial screening colonoscopy back in 2009, I did recommend a follow-up colonoscopy for further screening purposes. We did review the rationale for this in regard to colon cancer prevention. Full consent has been obtained for this, including risks of bleeding and perforation. The procedure will be done with monitored anesthesia care. She was given the below instructions regarding adjustment of her medication for the procedure. Sweetie was comfortable with this plan. Thank you again for allowing me to participate in Sweetie's care. I shall continue to keep you advised of her progress. Plan Of Treatment Future Test Test Name Order Date COLONOSCOPY 04/30/2014 COLONOSCOPY 07/28/2019 COLONOSCOPY 04/20/2025 Next Appt Details Provider Name:Joe Mathew , 06/21/2025 10:30:00 AM, [address] [place] [address] , [place], [place], [phone], Insurance Providers Payer Name Payer Address Payer Phone Subscriber Number Group Number Insured Name Patient Relationship to Insured Coverage Start Date Coverage End Date [facility] [address] [place] [address] [id number] YONSWEETIE CEBALLOS Self - patient is the insured Medical (General) History Medical History History ICD Code Colonoscopy 03/07/2010- 2 cm tubular adenoma removed at that time from the sigmoid colon-she was also noted to have some diverticulosis and internal hemorrhoids Depression Hyperlipidemia Cystoscopy with Dr. Mir, III in 04/2014- precancerous lesions Denies UT,DM,CVA,Lung disease,renal dise ase Renal cysts Bladder cancer 08/2018-cystoscopy- sees Ian Richards for yearly cystoscopies Colonoscopy June 2014 wi th removal of a small tubular adenoma; colonoscopy 2019 with a tubular adenoma removed Atrial fib-sees Dr. Hurley Colonoscopy in October 2019 with removal of a single tubular adenoma. Surgical History Surgery Date(Month/Year) Varicose veins on right leg
== END 2025-05-04 10:16 | disposition home or self-care (01) ==
LOC: HO.HCS 09:41
PROVIDERS: PCP Internal Medicine; Visit Provider Nurse Practitioner Family
DX: I48.0 Paroxysmal atrial fibrillation (principal); R07.89 Other chest pain; I51.7 Cardiomegaly; Z01.810 Encounter for preprocedural cardiovascular examination
CPT/HCPCS: 99214; G2211

== ENCOUNTER → 2025-05-04 09:40 | Outpatient (BNVA) | payer MEDICARE, SELFPAY | PROVIDERS: PCP Internal Medicine; Visit Provider Nurse Practitioner Family | DX: Z01.810 Encounter for preprocedural cardiovascular examination (principal); I48.0 Paroxysmal atrial fibrillation; R07.89 Other chest pain; I51.7 Cardiomegaly | CPT/HCPCS: 99212 ==